=== PATIENT | female | born 1995 | race Caucasian/White ===

== ENCOUNTER 2018-02-16 22:29 | Emergency (ER) | payer SELFPAY ==
[~2018-02-16] VITALS: Ht 152.4 cm; Wt 83.9 kg
[2018-02-16 22:56] LABS: BILIRUBIN,URINE NEGATIVE (NEGATIVE); CLARITY,URINE BLOODY; COLOR,URINE RED; GLUCOSE, URINE (UA) NEGATIVE (NEGATIVE); KETONES,URINE NEGATIVE (NEGATIVE); LEUKOCYTE ESTERASE ,URINE NEGATIVE (NEGATIVE); NITRITE,URINE NEGATIVE (NEGATIVE); PH,URINE 5 (5-9); PROTEIN,URINE 2+ (NEGATIVE); UROBILINOGEN,URINE NORMAL (NORMAL)
[2018-02-16 23:04] LABS: BACTERIA,URINE FEW /HPF; RBC,URINE TNTC /HPF; WBC,URINE RARE /HPF
--- NOTE | 2018-02-16 23:09 | ED GU-Female ---
General Chief Complaint: -Female Stated Complaint: VAG BLEED Source: patient, other Exam Limitations: no limitations History of Present Illness Date Seen by Provider: Feb 16, 2018 Time Seen by Provider: 22:53 Initial Comments Patient presents to the ER by private conveyance from [facility] where she was seen earlier today because around 6 or 7:00 tonight she started having some cramping and then vaginal bleeding. Yesterday she discovered by urine. She test she was . She is a with last menstrual period of 12/29/17 putting her at 7 weeks and 0 days. Her last menses were unremarkable that she remembers having some bleeding early on with her second child and she had to get a shot. She does not know her blood type. Her last sexual intercourse was Sunday, 3 days ago. She's not having any painful urine or discharge. No fevers chills but she has had nausea all day. She typically smokes a half pack a day but she's not smoke today since she's felt ill and she's not had anything to eat all day either. She says at [facility] she was seen and no blood work was done but she will is given a speculum examination. She was told it was unremarkable. She denies any shortness of breath or chest pain. Allergies and Home Medications Allergies Coded Allergies: Penicillins (Verified Allergy, Severe, 02/16/18) hospitalized as child for allergic reaction. Details unk. Amox causes rash amoxicillin (Verified Adverse Reaction, Mild, 02/16/18) rash Patient Home Medication List Home Medication List Reviewed: Yes Review of Systems Constitutional: No chills, No diaphoresis EENTM: No ear discharge, No ear pain Respiratory: No cough, No short of breath Cardiovascular: No chest pain, No edema Gastrointestinal: abdominal pain (suprapubic); No constipation, No diarrhea; nausea; No vomiting Genitourinary: denies burning, denies dysuria : Yes Past Rdsjlrk-Mrqtln-Kzfgjq Hx Patient Social History Alcohol Use: Denies Use Recreational Drug Use: No Smoking Status: Current Everyday Smoker Type Used: Cigarettes (0.5 ppd) Recent Foreign Travel: No Contact w/Someone Who Travel: No Physical Exam Vital Signs Vital Signs - First Documented 02/16/18 22:38 Temp 99.4 Pulse 102 Resp 20 B/P (MAP) 147/92 (110) Pulse Ox 100 O2 Delivery Room Air Capillary Refill : Height, Weight, BMI Height: '" Weight: lbs. oz. kg; BMI Method: General Appearance: WD/WN, no apparent distress HEENT: PERRL/EOMI, pharynx normal Neck: non-tender, normal inspection Cardiovascular: normal peripheral pulses, regular rate, rhythm Respiratory: no respiratory distress, no accessory muscle use Gastrointestinal: normal bowel sounds, soft, tenderness (suprapubic region. Fundus unpalpable) Back: normal inspection, no CVA tenderness Neurologic/Psychiatric: alert, normal mood/affect, oriented x 3 Progress/Results/Core Measures Suspected Sepsis SIRS Temperature: Pulse: Respiratory Rate: Laboratory Tests 02/16/18 23:05: White Blood Count 8.2 Blood Pressure / Mean: Laboratory Tests 02/16/18 23:05: Creatinine 0.67, Platelet Count 341, Total Bilirubin 0.5 Results/Orders Lab Results Laboratory Tests Test 02/16/18 22:45 02/16/18 23:05 Range/Units Urine Color RED H Urine Clarity BLOODY H Urine pH 5 5-9 Urine Specific [place] 1.015 L 1.016-1.022 Urine Protein 2+ H NEGATIVE Urine Glucose (UA) NEGATIVE NEGATIVE Urine Ketones NEGATIVE NEGATIVE Urine Nitrite NEGATIVE NEGATIVE Urine Bilirubin NEGATIVE NEGATIVE Urine Urobilinogen NORMAL NORMAL MG/DL Urine Leukocyte Esterase NEGATIVE NEGATIVE Urine RBC (Auto) 5+ H NEGATIVE Urine RBC TNTC H /HPF Urine WBC RARE /HPF Urine Squamous Epithelial Cells 2-5 /HPF Urine Crystals NONE /LPF Urine Bacteria FEW H /HPF Urine Casts NONE /LPF Urine Mucus NEGATIVE /LPF Urine Culture Indicated NO White Blood Count 8.2 4.3-11.0 10^3/uL Red Blood Count 5.43 4.35-5.85 10^6/uL Hemoglobin 13.4 11.5-16.0 G/DL Hematocrit 39 35-52 % Mean Corpuscular Volume 72 L 80-99 FL Mean Corpuscular Hemoglobin 25 25-34 PG Mean Corpuscular Hemoglobin Concent 34 32-36 G/DL Red Cell Distribution Width 15.0 H 10.0-14.5 % Platelet Count 341 130-400 10^3/uL Mean Platelet Volume 9.7 7.4-10.4 FL Neutrophils (%) (Auto) 75 42-75 % Lymphocytes (%) (Auto) 17 12-44 % Monocytes (%) (Auto) 6 0-12 % Eosinophils (%) (Auto) 2 0-10 % Basophils (%) (Auto) 0 0-10 % Neutrophils # (Auto) 6.1 1.8-7.8 X 10^3 Lymphocytes # (Auto) 1.4 1.0-4.0 X 10^3 Monocytes # (Auto) 0.5 0.0-1.0 X 10^3 Eosinophils # (Auto) 0.1 0.0-0.3 10^3/uL Basophils # (Auto) 0.0 0.0-0.1 10^3/uL Sodium Level 138 135-145 MMOL/L Potassium Level 3.6 3.6-5.0 MMOL/L Chloride Level 108 H 98-107 MMOL/L Carbon Dioxide Level 19 L 21-32 MMOL/L Anion Gap 11 5-14 MMOL/L Blood Urea Nitrogen 5 L 7-18 MG/DL Creatinine 0.67 0.60-1.30 MG/DL Estimat Glomerular Filtration Rate > 60 BUN/Creatinine Ratio 7 Glucose Level 95 70-105 MG/DL Calcium Level 9.0 8.5-10.1 MG/DL Total Bilirubin 0.5 0.1-1.0 MG/DL Aspartate Amino Transf (AST/SGOT) 13 5-34 U/L Alanine Aminotransferase (ALT/SGPT) 9 0-55 U/L Alkaline Phosphatase 65 40-136 U/L Total Protein 7.1 6.4-8.2 GM/DL Albumin 4.4 3.2-4.5 GM/DL Human Chorionic Gonadotropin, Quant [id number] H <5 MIU/ML My Orders Orders - AMRIT ZHANG Ua Culture If Indicated (02/16/18 22:49) Hcg,Quantitative (02/16/18 22:49) Cbc With Automated Diff (02/16/18 22:49) Comprehensive Metabolic Panel (02/16/18 22:49) Type And Screen (02/16/18 22:49) Iv Heplock-Insert (Order) (02/16/18 22:49) Acetaminophen Tablet (Tylenol Tablet) (02/16/18 23:15) Ondansetron Injection (Zofran Injectio (02/16/18 23:15) Us Ob Transvaginal [id number] (02/16/18 23:09) Medications Given in ED Current Medications Medications Dose Ordered Sig/Eleni Route Start Time Stop Time Status Last Admin Dose Admin Acetaminophen 1,000 mg ONCE ONCE PO 02/16/18 23:15 02/16/18 23:16 DC 02/16/18 23:21 1,000 MG Ondansetron HCl 4 mg ONCE ONCE IVP 02/16/18 23:15 02/16/18 23:16 DC 02/16/18 23:21 4 MG Vital Signs/I&O 02/16/18 22:38 Temp 99.4 Pulse 102 Resp 20 B/P (MAP) 147/92 (110) Pulse Ox 100 O2 Delivery Room Air Capillary Refill : Progress Note : Time: 23:08 Progress Note Plan to get some labs, urinalysis, quantitative hCG, IV give her some Zofran, Tylenol. We'll obtain ultrasound to see if we can rule out an ectopic given her cramping and pain. Diagnostic Imaging Diagonstic Imaging: Ultrasound Plain Films/CT/US/NM/MRI: pelvis Comments No pole seen but there is a sac intrauterine. No ectopic . Reviewed: Reviewed by Me Departure Impression Primary Impression: Threatened miscarriage in early Disposition: 01 HOME, SELF-CARE Condition: Stable Departure-Patient Inst. Decision time for Depature: 00:51 Referrals: NO,LOCAL PHYSICIAN (PCP) Primary Care Physician ABILIO ROMERO MD Patient Instructions: Threatened Miscarriage (DC) Add. Discharge Instructions: Sunday morning to follow up with an OB provider. Tylenol 1000 g every 8 hours for pain and/or ibuprofen 800 mg every 8 hours as well as heating pads. You can use Zofran 1 tablet every 6 hours as needed for nausea. All discharge instructions reviewed with patient and/or family. Voiced understanding. Copy Copies To 1: ABILIO ROMERO MD, TITUS J Feb 16, 2018 23:09
[2018-02-16 23:10] LABS: BASOPHILS % (AUTO) 0 % (0-10); EOSINOPHILS # (AUTO) 0.1 10^3/uL (0.0-0.3); EOSINOPHILS % (AUTO) 2 % (0-10); HEMATOCRIT 39 % (35-52); HEMOGLOBIN 13.4 G/DL (11.5-16.0); LYMPHOCYTES # (AUTO) 1.4 X 10^3 (1.0-4.0); LYMPHOCYTES % (AUTO) 17 % (12-44); MEAN CORPUSCULAR HEMOGLOBIN 25 PG (25-34); MEAN CORPUSCULAR HGB CONC 34 G/DL (32-36); MEAN CORPUSCULAR VOLUME 72 FL (80-99); MEAN PLATELET VOLUME 9.7 FL (7.4-10.4); MONOCYTES # (AUTO) 0.5 X 10^3 (0.0-1.0); MONOCYTES % (AUTO) 6 % (0-12); NEUTROPHILS # (AUTO) 6.1 X 10^3 (1.8-7.8); NEUTROPHILS % (AUTO) 75 % (42-75); PLATELET COUNT 341 10^3/uL (130-400); RED BLOOD COUNT 5.43 10^6/uL (4.35-5.85); WHITE BLOOD COUNT 8.2 10^3/uL (4.3-11.0)
[2018-02-16] MEDS ORDERED: ACETAMINOPHEN 500 MG TAB (TYLENOL) PO ONE (23:15)
[2018-02-16] MEDS ORDERED: ONDANSETRON 4 MG/2 ML (SDV) Z0FRAN IVP ONE (23:15)
[2018-02-16 23:27] LABS: BUN/CREATININE RATIO 7; CARBON DIOXIDE 19 MMOL/L (21-32); CHLORIDE 108 MMOL/L (98-107); CREATININE SERUM 0.67 MG/DL (0.60-1.30); POTASSIUM 3.6 MMOL/L (3.6-5.0); SODIUM 138 MMOL/L (135-145)
[2018-02-16 23:28] LABS: ALANINE AMINOTRANSFERASE 9 U/L (0-55); ALBUMIN 4.4 GM/DL (3.2-4.5); ALKALINE PHOSPHATASE 65 U/L (40-136); BILIRUBIN,TOTAL 0.5 MG/DL (0.1-1.0); GFR ESTIMATED > 60; GLUCOSE 95 MG/DL (70-105); TOTAL PROTEIN 7.1 GM/DL (6.4-8.2)
[2018-02-17 01:03] VITALS: BP 147/92
--- NOTE | 2018-02-17 06:13 | Diagnostic Imaging Report ---
Indication: Pelvic cramping and vaginal bleeding starting at 7 PM. Comparison: None. Discussion: Transvaginal sonographic evaluation of the pelvis was performed. Simple appearing saclike structure noted within the endometrium with no pole or yolk sac identified. Mean sac diameter is 9 mm. This would correlate with a 5 week 4 day gestation. Viability is indeterminate. This could represent an early normal or blighted ovum. Recommend clinical correlation and continued sonographic followup. There is a complex lesion within the right ovary which measures 1.9 x 1.1 x 1.2 cm with no internal color Doppler blood flow identified. This potentially could represent a corpus luteum though is indeterminate. The left ovary was obscured by bowel. Trace free fluid is noted within the pelvis. The uterus is otherwise normal in echotexture and size. Impression: 1. Simple appearing gestational sac noted within the endometrial canal with no pole or yolk sac identified. Viability is indeterminate. See above discussion and recommendations. 2. Complex hypoechoic focus within the right ovary is nonspecific though could represent a corpus luteal cyst. This could also be followed up with short-term ultrasound. 3. Agree with preliminary report. Dictated by: Dictated on workstation # [id number]
== END 2018-02-17 01:03 | disposition home or self-care (01) ==
LOC: EDUNIT# 22:29 → ER 22:33
DX: O20.0 Threatened abortion (principal); O99.331 Smoking (tobacco) complicating pregnancy, first trimester; F17.210 Nicotine dependence, cigarettes, uncomplicated; Z3A.01 Less than 8 weeks gestation of pregnancy; Z88.0 Allergy status to penicillin; Z88.1 Allergy status to other antibiotic agents
CPT/HCPCS: 36415; 76817; 80053; 81000; 84702; 85025; 86850; 86900; 86901; 96374

== ENCOUNTER 2018-02-26 01:14 | Emergency (ER) | payer MEDICAID, OTHER ==
[~2018-02-26] VITALS: Ht 152.4 cm; Wt 83.9 kg
[2018-02-26 02:00] LABS: BASOPHILS % (AUTO) 0 % (0-10); EOSINOPHILS # (AUTO) 0.3 10^3/uL (0.0-0.3); EOSINOPHILS % (AUTO) 3 % (0-10); HEMATOCRIT 35 % (35-52); HEMOGLOBIN 12.1 G/DL (11.5-16.0); LYMPHOCYTES # (AUTO) 1.7 X 10^3 (1.0-4.0); LYMPHOCYTES % (AUTO) 18 % (12-44); MEAN CORPUSCULAR HEMOGLOBIN 25 PG (25-34); MEAN CORPUSCULAR HGB CONC 34 G/DL (32-36); MEAN CORPUSCULAR VOLUME 72 FL (80-99); MEAN PLATELET VOLUME 9.5 FL (7.4-10.4); MONOCYTES # (AUTO) 0.7 X 10^3 (0.0-1.0); MONOCYTES % (AUTO) 7 % (0-12); NEUTROPHILS # (AUTO) 6.8 X 10^3 (1.8-7.8); NEUTROPHILS % (AUTO) 71 % (42-75); PLATELET COUNT 336 10^3/uL (130-400); RED BLOOD COUNT 4.94 10^6/uL (4.35-5.85); RED CELL DISTRIBUTION WIDTH 15.2 % (10.0-14.5); WHITE BLOOD COUNT 9.5 10^3/uL (4.3-11.0)
[2018-02-26 02:21] LABS: BUN/CREATININE RATIO 13; CALCIUM 8.9 MG/DL (8.5-10.1); CARBON DIOXIDE 20 MMOL/L (21-32); CHLORIDE 108 MMOL/L (98-107); CREATININE SERUM 0.62 MG/DL (0.60-1.30); GFR ESTIMATED > 60; GLUCOSE 93 MG/DL (70-105); POTASSIUM 3.8 MMOL/L (3.6-5.0); SODIUM 137 MMOL/L (135-145)
[2018-02-26] MEDS ORDERED: NS IV 1000 ML 1,000 ML IV ONE ×2 (02:54→04:09)
[2018-02-26] MEDS ORDERED: NS IV 1000 ML 1,000 ML ONE (03:04)
[2018-02-26 04:46] VITALS: BP_SYST 109; BP_SYST 110; BP_SYST 115; BP_DIAS 54; BP_DIAS 65; BP_DIAS 66
[2018-02-26] MEDS ORDERED: ACHD5005 PO (05:05)
--- NOTE | 2018-02-26 05:05 | ED GU-Female ---
General Chief Complaint: -Female Stated Complaint: VAGINAL BLEEDING Nursing Triage Note: PATIENT HERE FOR CONCERNS OF MISCARRIAGE. SHE IS CONFIRMED BY DR. VASQUEZ AND WAS JUST STARTED ON PROGESTERONE SHOTS. SHE HAS BEEN SPOTTING SINCE SUNDAY BUT STARTED BLEEDING HEAVILY ABOUT 1-2 HOURS AGO WITH CRAMPING. Nursing Sepsis Screen: No Definite Risk Source: patient History of Present Illness Date Seen by Provider: Feb 26, 2018 Time Seen by Provider: 01:29 Initial Comments PT ARRIVES VIA POV FROM HOME IN [place] PT STATES SHE IS , BUT DOES NOT KNOW HOW FAR ALONG SHE IS. LMP --ENDED 01/02/18, BUT DOES NOT KNOW WHEN IT BEGAN. WAS NORMAL. HAS NOT BEEN ON CONTROL PT IS AB 0 PT BEGAN HAVING INTERMITTENT SPOTTING ( SAMLL AMOUNT OF LIGHT PINK ON TISSUE WITH WIPING AND CRAMPING 2 SATURDAYS AGO ( 02/16/18 ) SAW DR. VASQUEZ FOR FIRST OB VISIT ON Sunday02/19/18 AND WAS STARTED ON PROGESTERONE PT STATES AROUND 2300 TONIGHT, SHE BEGAN TO HAVE "BAD" BRIGHT RED BLEEDING AND BAD CRAMPING. HAS BEEN PASSING CLOTS STATES SHE SOAKED 4 PANTILINERS/SUPERTHIN PADS SINCE 2300. + NAUSEA, NO VOMITING--ONGOING SINCE BECOMING HAS BEEN ABLE TO EAT AND DRINK NO PROBLEMS URINATING OR URINARY SYMPTOMS NO FEVER OR RECENT ILLNESS Allergies and Home Medications Allergies Coded Allergies: Penicillins (Verified Allergy, Severe, 02/16/18) hospitalized as child for allergic reaction. Details unk. Amox causes rash amoxicillin (Verified Adverse Reaction, Mild, 02/16/18) rash Home Medications Hydrocodone Bit/Acetaminophen 1 Tab Tab, 1 EACH PO Q4H Prescribed by: DAVID HANDLEY on 02/26/18 0505 Review of Systems Constitutional: no symptoms reported; No dizziness Respiratory: no symptoms reported Cardiovascular: no symptoms reported Gastrointestinal: see HPI, abdominal pain, nausea; No vomiting Genitourinary: see HPI, other (VAGINAL BLEEDING AND CRAMPING) : Yes LMP: Jan 02, 2018 (ENDED 01/02/18) Musculoskeletal: no symptoms reported Skin: no symptoms reported Psychiatric/Neurological: No Symptoms Reported Endocrine: No Symptoms Reported Hematologic/Lymphatic: No Symptoms Reported Past Nvswheq-Dtdycz-Wqpvla Hx Patient Social History Alcohol Use: Denies Use Recreational Drug Use: No Smoking Status: Current Everyday Smoker (1/2 PPD) Type Used: Cigarettes (1/2 PPD) 2nd Hand Smoke Exposure: Yes Recent Foreign Travel: No Contact w/Someone Who Travel: No Recent Infectious Disease Expo: No Recent Hopitalizations: No Physical Abuse: No Sexual Abuse: No Immunizations Up To Date Tetanus Booster (TDap): Unknown PED Vaccines UTD: Yes Seasonal Allergies Seasonal Allergies: No Past Medical History Surgeries: Yes Adenoidectomy, Appendectomy, Section, Tonsillectomy Respiratory: No Cardiac: No Neurological: No : Yes Female Reproductive Disorders: Denies Genitourinary: No Gastrointestinal: No Musculoskeletal: No Endocrine: No HEENT: No Cancer: No Psychosocial: No Nursing Suicide Risk Score: 0 Integumentary: No Blood Disorders: No Physical Exam Vital Signs Vital Signs - First Documented 02/26/18 01:20 Temp 98.4 Pulse 96 Resp 20 B/P (MAP) 124/66 (85) Pulse Ox 99 Capillary Refill : Less Than 3 Seconds Height, Weight, BMI Height: 5'0" Weight: 185lbs. 0oz. 83.209547sb; BMI Method:Stated General Appearance: WD/WN, no apparent distress HEENT: No pale conjunctivae (R), No pale conjunctivae (L) Cardiovascular: regular rate, rhythm, no edema, no JVD, no murmur Respiratory: normal breath sounds, no respiratory distress, no accessory muscle use Gastrointestinal: normal bowel sounds, soft, no organomegaly, no pulsatile mass , tenderness (MILD LOWER ABDOMINAL / SUPRAPUBIC TENDERNES) Pelvic: normal external exam, tender w/ cervical motion, tender uterus, vaginal bleeding (HEAVY BLEEDING WITH LARGE CLOTS, UNABLE TO VISUALIZE CERVIX ) Back: no CVA tenderness Extremities: normal inspection, no pedal edema, normal capillary refill Neurologic/Psychiatric: ripsaw grader II-XII nml as tested, no motor/sensory deficits, alert, normal mood/affect, oriented x 3 Skin: normal color, warm/dry Progress/Results/Core Measures Suspected Sepsis Recent Fever Within 48 Hours: No Infection Criteria Present: None New/Unexplained Altered Menta: No Sepsis Screen: No Definite Risk SIRS Temperature:98.4 Pulse: 94 Respiratory Rate: 20 Laboratory Tests 02/26/18 01:50: White Blood Count 9.5 02/26/18 05:10: White Blood Count 10.1 Blood Pressure 115 /65 Mean: 82 Laboratory Tests 02/26/18 01:50: Creatinine 0.62, Platelet Count 336 02/26/18 05:10: Platelet Count 265 Results/Orders Lab Results Laboratory Tests Test 02/26/18 01:50 02/26/18 05:10 Range/Units White Blood Count 9.5 10.1 4.3-11.0 10^3/uL Red Blood Count 4.94 3.99 L 4.35-5.85 10^6/uL Hemoglobin 12.1 9.7 L 11.5-16.0 G/DL Hematocrit 35 29 L 35-52 % Mean Corpuscular Volume 72 L 73 L 80-99 FL Mean Corpuscular Hemoglobin 25 24 L 25-34 PG Mean Corpuscular Hemoglobin Concent 34 33 32-36 G/DL Red Cell Distribution Width 15.2 H 14.9 H 10.0-14.5 % Platelet Count 336 265 130-400 10^3/uL Mean Platelet Volume 9.5 8.9 7.4-10.4 FL Neutrophils (%) (Auto) 71 73 42-75 % Lymphocytes (%) (Auto) 18 18 12-44 % Monocytes (%) (Auto) 7 7 0-12 % Eosinophils (%) (Auto) 3 2 0-10 % Basophils (%) (Auto) 0 0 0-10 % Neutrophils # (Auto) 6.8 7.4 1.8-7.8 X 10^3 Lymphocytes # (Auto) 1.7 1.8 1.0-4.0 X 10^3 Monocytes # (Auto) 0.7 0.7 0.0-1.0 X 10^3 Eosinophils # (Auto) 0.3 0.2 0.0-0.3 10^3/uL Basophils # (Auto) 0.0 0.0 0.0-0.1 10^3/uL Sodium Level 137 135-145 MMOL/L Potassium Level 3.8 3.6-5.0 MMOL/L Chloride Level 108 H 98-107 MMOL/L Carbon Dioxide Level 20 L 21-32 MMOL/L Anion Gap 9 5-14 MMOL/L Blood Urea Nitrogen 8 7-18 MG/DL Creatinine 0.62 0.60-1.30 MG/DL Estimat Glomerular Filtration Rate > 60 BUN/Creatinine Ratio 13 Glucose Level 93 70-105 MG/DL Calcium Level 8.9 8.5-10.1 MG/DL Human Chorionic Gonadotropin, Quant 94704 H <5 MIU/ML My Orders Orders - DAVID HANDLEY DO Basic Metabolic Panel (02/26/18 01:33) Cbc With Automated Diff (02/26/18 01:33) Hcg,Quantitative (02/26/18 01:33) Saline Lock/Iv-Start (02/26/18 02:54) Ns Iv 1000 Ml (Sodium Chloride 0.9%) (02/26/18 02:54) Us Ob<14 Wks Sngle W/Transvag (02/26/18 01:33) Ns Iv 1000 Ml (Sodium Chloride 0.9%) (02/26/18 03:04) Orthostatic Vital Signs (Adult (02/26/18 04:09) Saline Lock/Iv-Start (02/26/18 04:09) Ns Iv 1000 Ml (Sodium Chloride 0.9%) (02/26/18 04:09) Cbc With Automated Diff (02/26/18 05:03) Rx-Hydrocodone/Apap 5-325 Mg (Rx-Vicodin (02/26/18 05:15) Hydrocodone/Apap 5/325 Tablet (Lortab 5 (02/26/18 05:15) Medications Given in ED Current Medications Medications Dose Ordered Sig/Eleni Route Start Time Stop Time Status Last Admin Dose Admin Acetaminophen/ Hydrocodone Bitart 1 tab ONCE ONCE PO 02/26/18 05:15 02/26/18 05:16 DC 02/26/18 05:29 1 TAB Sodium Chloride 1,000 ml @ 0 mls/hr Q0M ONCE IV 02/26/18 02:54 02/26/18 03:08 DC 02/26/18 03:10 0 MLS/HR Sodium Chloride 1,000 ml @ 0 mls/hr Q0M ONCE IV 02/26/18 04:09 02/26/18 04:10 DC 02/26/18 04:14 0 MLS/HR Vital Signs/I&O 02/26/18 02/26/18 01:20 04:46 Temp 98.4 Pulse 96 81 85 94 Resp 20 B/P (MAP) 124/66 (85) 110/54 (72) 109/66 (80) 115/65 (82) Pulse Ox 99 Capillary Refill : Less Than 3 Seconds Blood Pressure Mean: 82 Progress Note : Progress Note BLEEDING AND CRAMPING HAVE SLOWED DOWN SIGNIFICANTLY AND PT FEELS MUCH BETTER AT DISMISSAL PT DID PASS WHAT APPEARED TO BE PRODUCTS OF CONCEPTION PRIOR TO GOING TO ULTRASOUND. PT OBSERVED IN ER FOR A FEW HOURS, AND GIVEN 2 LITERS OF FLUIDS PT ASYMPTOMATIC WITH ORTHOSTATIC VITALS, AND ONLY SLIGHT INCREASE IN HEART RATE , WITH NO DROP IN BLOOD PRESSURE PT FEELS COMFORTABLE GOING HOME ADVISED TO RETURN TO ER IF SYMPTOMS WORSEN, OTHERWISE FOLLOW UP WITH DR. VASQUEZ IN 1-2 DAYS FOR FURTHER CARE Diagnostic Imaging Comments ULTRASOUND--NO GESTATIONAL SAC. ENDOMETRIUM THICKENED TO 2.2 CM WITH COLOR FLOW IN HETEROGENEOUS ENDOMETRIUM. 2.3 X 1.1 X 1.6 CM RIGHT ADNEXAL COMPLEX CYST. LEFT OVARY NOT VISUALIZED. PER [facility] VIA FAX @ [phone] Reviewed: Reviewed by Me Departure Impression Primary Impression: Miscarriage Additional Impression: MILD BLOOD LOSS ANEMIA Disposition: HOME, SELF-CARE Condition: Improved Departure-Patient Inst. Referrals: GABY VASQUEZ,LOCAL PHYSICIAN (PCP) Primary Care Physician Patient Instructions: Dealing With Miscarriage, Miscarriage (DC) Add. Discharge Instructions: LOTS OF CLEAR LIQUIDS KEEP AN ACCURATE PAD COUNT--RETURN TO ER IF SOAKING MORE THAN 1 MAXI PAD AN HOUR TAKE VITAMINS DAILY FOLLOW UP WITH DR. VASQUEZ IN 1-2 DAYS FOR FURTHER CARE All discharge instructions reviewed with patient and/or family. Voiced understanding. Scripts Hydrocodone Bit/Acetaminophen (Hydrocodone/Acetaminophen 5/325mg Tablet) 1 Tab Tab 1 EACH PO Q4H, #20 TAB Prov: DAVID HANDLEY DO 02/26/18 Work/School Note: Work Release Form Date Seen in the Emergency Department: Feb 26, 2018 Restrictions: Need Release from Doctor DAVID HANDLEY DO Feb 26, 2018 05:05
[2018-02-26] MEDS ORDERED: HYDROcodone/APAP 5 MG/325 MG (LORTAB) TAB PO ONE (05:15)
[2018-02-26] MEDS ORDERED: RX-HYDROCODONE/APAP 5/325 MG #4 TAB PK PO PRN (05:15)
[2018-02-26 05:22] LABS: BASOPHILS % (AUTO) 0 % (0-10); EOSINOPHILS # (AUTO) 0.2 10^3/uL (0.0-0.3); EOSINOPHILS % (AUTO) 2 % (0-10); HEMATOCRIT 29 % (35-52); HEMOGLOBIN 9.7 G/DL (11.5-16.0); LYMPHOCYTES # (AUTO) 1.8 X 10^3 (1.0-4.0); LYMPHOCYTES % (AUTO) 18 % (12-44); MEAN CORPUSCULAR HEMOGLOBIN 24 PG (25-34); MEAN CORPUSCULAR HGB CONC 33 G/DL (32-36); MEAN CORPUSCULAR VOLUME 73 FL (80-99); MEAN PLATELET VOLUME 8.9 FL (7.4-10.4); MONOCYTES # (AUTO) 0.7 X 10^3 (0.0-1.0); MONOCYTES % (AUTO) 7 % (0-12); NEUTROPHILS # (AUTO) 7.4 X 10^3 (1.8-7.8); NEUTROPHILS % (AUTO) 73 % (42-75); PLATELET COUNT 265 10^3/uL (130-400); RED BLOOD COUNT 3.99 10^6/uL (4.35-5.85); RED CELL DISTRIBUTION WIDTH 14.9 % (10.0-14.5); WHITE BLOOD COUNT 10.1 10^3/uL (4.3-11.0)
[2018-02-26 05:42] VITALS: BP 115/65
--- NOTE | 2018-02-26 08:34 | Diagnostic Imaging Report ---
Indication: Pelvic pain and bleeding. Comparison: Pelvic ultrasound 02/16/2018. Technique: Multi-projectional grayscale and color Doppler imaging of the pelvis was performed endovaginally and transabdominally. Findings: The uterus measures 8.0 x 5.3 x 5.7 cm. There is no myometrial mass. However, the endometrium demonstrates marked abnormal echogenic thickening measuring up to 2.2 cm. Near the level of the fundus, there is an abnormal mixed cystic and solid structure within the endometrium. There is also internal vascularity associated with the endometrium. The right ovary measures 2.9 x 1.7 x 1.7 cm. It is physiologic in appearance with normal blood flow present on color Doppler imaging. There is a probable involuting corpus luteum within the right ovary. The left ovary is not seen due to obscuration by bowel gas. Trace free pelvic fluid appears simple. No concerning adnexal mass. Impression: 1. Markedly thickened endometrium and there is no longer an intrauterine gestational sac. Vascularity associated with the endometrium is most compatible with retained products of conception failed . Continued followup beta-hCG and serial ultrasound is recommended as trophoblastic disease could potentially give this appearance. 2. No imaging features of ectopic . 3. Findings are in general agreement with the preliminary report is that there is abnormal endometrial thickening. However, preliminary report does not suggest etiology being related to failed . Obstetric/gynecology consultation is recommended for continued management. Dictated by: Dictated on workstation # [id number]
== END 2018-02-26 05:50 | disposition home or self-care (01) ==
LOC: EDUNIT# 01:14 → ER 01:15
DX: O03.9 Complete or unspecified spontaneous abortion without complication (principal); O99.019 Anemia complicating pregnancy, unspecified trimester; D50.0 Iron deficiency anemia secondary to blood loss (chronic); O99.330 Smoking (tobacco) complicating pregnancy, unspecified trimester; F17.210 Nicotine dependence, cigarettes, uncomplicated; Z87.59 Personal history of other complications of pregnancy, childbirth and the puerperium; Z90.89 Acquired absence of other organs; Z88.0 Allergy status to penicillin; Z3A.00 Weeks of gestation of pregnancy not specified
CPT/HCPCS: 36415; 76801; 76817; 80048; 84702; 85025; 96360; 96361

== ENCOUNTER 2019-02-04 21:20 | Emergency (ER) | payer MEDICAID ==
[~2019-02-04] VITALS: Ht 152.4 cm; Wt 86.2 kg
[~2019-02-04 21:20] MED LIST: ACHD5005 PO
[2019-02-04] MEDS ORDERED: CLINDAMYCIN 150 MG (CLEOCIN) CAP PO STA (21:37)
[2019-02-04] MEDS ORDERED: KETOROLAC 60 MG/2 ML VIAL IM STA (21:37)
[2019-02-04] MEDS ORDERED: RX-TRAMADOL 50 MG (ULTRAM) TAB PPK#4 PO STA (21:38)
--- NOTE | 2019-02-04 21:40 | ED EENT ---
History of Present Illness General Chief Complaint: General Problems/Pain Stated Complaint: BUMP UNDER TONGUE Source: patient History of Present Illness Date Seen by Provider: Feb 04, 2019 Time Seen by Provider: 21:22 Initial Comments 23-year-old female presenting with complaints of pain and swelling under the right side of her tongue. This has presented within the last 36 hours. She also has some teeth that are bad on the inside of her mouth. She is unsure if this was infection or what was causing the pain and swelling. She has had pain to the point that she was unable to eat tonight. It hurts when she is talking because it rubs against her teeth. She has not taken anything for the pain. She has not had something like this before. The pain does radiate to her ear at times as well. She denies any fever or chills. Allergies and Home Medications Allergies Coded Allergies: Penicillins (Verified Allergy, Severe, 02/16/18) hospitalized as child for allergic reaction. Details unk. Amox causes rash amoxicillin (Verified Adverse Reaction, Mild, 02/16/18) rash Home Medications Clindamycin HCl 300 Mg Capsule, 300 MG PO TID Prescribed by: ROSE HENDRICKSON on 02/04/192158 Hydrocodone Bit/Acetaminophen 1 Tab Tab, 1 EACH PO Q4H Prescribed by: DAVID HANDLEY on 02/26/18 0505 Ibuprofen 800 Mg Tablet, 800 MG PO Q8H PRN for PAIN Prescribed by: ROSE HENDRICKSON on 02/04/192158 Patient Home Medication List Home Medication List Reviewed: Yes Review of Systems Review of Systems Constitutional: No chills, No fever, No malaise Eyes: No Symptoms Reported Ears: See HPI Nose: no symptoms reported Mouth: see HPI Throat: no symptoms reported Respiratory: no symptoms reported Cardiovascular: no symptoms reported Gastrointestinal: no symptoms reported Musculoskeletal: no symptoms reported Skin: no symptoms reported Neurological: No Symptoms Reported Hematologic/Lymphatic: No Symptoms Reported Immunological/Allergic: no symptoms reported Past Hxzcsql-Dkhasw-Wqodzs Hx Past Med/Social Hx: Reviewed Nursing Past Med/Soc Hx Patient Social History Type Used: Cigarettes 2nd Hand Smoke Exposure: Yes Recent Foreign Travel: No Contact w/Someone Who Travel: No Recent Hopitalizations: No Immunizations Up To Date Tetanus Booster (TDap): Unknown PED Vaccines UTD: Yes Seasonal Allergies Seasonal Allergies: No Past Medical History Surgeries: Yes Adenoidectomy, Appendectomy, Section, Tonsillectomy Respiratory: No Cardiac: No Neurological: No Female Reproductive Disorders: Denies Genitourinary: No Gastrointestinal: No Musculoskeletal: No Endocrine: No HEENT: No Cancer: No Psychosocial: No Integumentary: No Blood Disorders: No Physical Exam Vital Signs Vital Signs - First Documented 02/04/19 21:30 Temp 98.7 Pulse 115 Resp 20 B/P (MAP) 130/79 (96) Pulse Ox 100 O2 Delivery Room Air Height, Weight, BMI Height: 5'0" Weight: 185lbs. 0oz. 83.166594ia; BMI Method:Stated General Appearance: WD/WN, no apparent distress Eyes: bilateral eye PERRL, bilateral eye EOMI Ears: bilateral ear auricle normal, bilateral ear canal normal, bilateral ear T M normal Nose: normal inspection Mouth/Throat: pharynx normal, dental tenderness; No tonsillar exudate, No trismus; other (white raised papular area under right side of tongue in posterior area. Tender to palpation with mild induration. No drainage noted) Neck: full range of motion, supple, lymphadenopathy (R) (mild shotty) Cardiovascular: normal peripheral pulses, regular rate, rhythm Respiratory: lungs clear Neurologic/Psychiatric: alert, oriented x 3 Skin: normal color, warm/dry Progress/Results/Core Measures Results/Orders My Orders Orders - ROSE HENDRICKSON MD Ketorolac Injection (Toradol Injection) (02/04/19 21:37) Clindamycin Capsule (Cleocin Capsule) (02/04/19 21:37) Rx-Tramadol Hcl (Rx-Ultram) (02/04/19 21:38) Vital Signs/I&O 02/04/19 02/04/19 21:30 21:56 Temp 98.7 98.7 Pulse 115 115 Resp 20 20 B/P (MAP) 130/79 (96) 130/79 (96) Pulse Ox 100 100 O2 Delivery Room Air Progress Progress Note : Progress Note give Toradol to help with pain and inflammation. Treat with antibiotics since seems to be infection with it being swollen, tender and painful. Will treat with clindamycin since she is allergic to penicillins. Use tramadol for severe pain. Continue ibuprofen for inflammation and pain. Outpatient follow-up with Dr. Nery davies's office for ENT evaluation tomorrow or . However also try sour candies in case any of this was a blocked salivary gland duct her [place]. If worsens she may also need a CT scan through that area to evaluate it. Departure Impression Primary Impression: Salivary gland adenitis Disposition: 01 HOME, SELF-CARE Condition: Stable Departure-Patient Inst. Decision time for Depature: 21:54 Referrals: GABY GUILLORY MD NO,LOCAL PHYSICIAN (PCP) Primary Care Physician Patient Instructions: Salivary Gland Infection (DC) Add. Discharge Instructions: Take the antibiotics until gone. Follow up with ENT for further evaluation, especially if not improving tomorrow or . Use Ibuprofen for pain and inflammation. May use the Tramadol for severe pain. Follow a liquid diet for the next 24 to 48 hours to keep from chewing and hurting the area. Use sour candies such as Lemon drops to help make your salivary gland drain. All discharge instructions reviewed with patient and/or family. Voiced understanding. Scripts Clindamycin HCl (Clindamycin HCl) 300 Mg Capsule 300 MG PO TID for 7 Days, #21 CAP 0 Refills Prov: ROSE HENDRICKSON MD 02/04/19 Ibuprofen (Ibuprofen) 800 Mg Tablet 800 MG PO Q8H PRN for PAIN for 10 Days, #30 TAB 0 Refills Prov: ROSE HENDRICKSON MD 02/04/19 Work/School Note: Work Release Form Date Seen in the Emergency Department: Feb 04, 2019 Return to Work: Feb 06, 2019 Restrictions: No Restrictions ROSE HENDRICKSON MD Feb 04, 2019 21:40
[2019-02-04 21:56] VITALS: BP 130/79
[2019-02-04] MEDS ORDERED: IBUP-1780 PO (21:59)
[2019-02-04] MEDS ORDERED: CLIN300C11 PO (21:59)
== END 2019-02-04 22:04 | disposition home or self-care (01) ==
LOC: EDUNIT# 21:20 → ER FS 21:21
DX: K11.20 Sialoadenitis, unspecified (principal); Z88.0 Allergy status to penicillin; Z88.1 Allergy status to other antibiotic agents; Z77.22 Contact with and (suspected) exposure to environmental tobacco smoke (acute) (chronic); Z90.49 Acquired absence of other specified parts of digestive tract; Z90.89 Acquired absence of other organs
CPT/HCPCS: 96372; 99284

== ENCOUNTER → 2019-02-19 | Outpatient (CLI) | payer MEDICAID ==
[~2019-02-19] MED LIST changes: +CLIN300C11 PO; +HOLD METFORMIN - RECEIVED CONTRAST 20 ML VIAL IV SCH; +IBUP-1780 PO; +IOHEXOL 350 MG/ML 100 ML (OMNIPAQUE 350) VIAL IV ONE; +NS 100 ML (IVPB) BAG IV ONE
[2019-02-19] MEDS: CATHETER FLUSH 10 ML SYR IV PRN ×2 (09:34→09:37)
--- NOTE | 2019-02-19 10:22 | Diagnostic Imaging Report ---
PROCEDURE: CT neck soft tissue with contrast. TECHNIQUE: Multiple contiguous axial images were obtained through the neck after the administration of contrast. Auto Exposure Controls were utilized during the CT exam to meet ALARA standards for radiation dose reduction. INDICATION: Right submandibular sialadenitis for three weeks. COMPARISON: No prior studies are available for comparison. FINDINGS: Bilateral submandibular glands are fairly symmetric. Right gland is slightly larger than the left, however, no significant salivary duct dilatation is seen. No inflammatory stranding in the adjacent fat is identified. No definite sialolithiasis is identified. Bilateral parotid glands appear to be symmetric. There are small normal-sized lymph nodes in the submandibular and jugulodigastric regions bilaterally. No cervical lymphadenopathy is seen. Intracranial structures are unremarkable. Posterior nasopharynx and oropharynx are unremarkable. Parapharyngeal fat planes are preserved. Epiglottis and larynx are unremarkable. No thyroid mass is detected. No fluid collections are seen. IMPRESSION: Essentially unremarkable CT soft tissue neck study. No definite CT findings of sialolithiasis or sialadenitis are identified. Dictated by: Dictated on workstation # [id number]
== END ==
LOC: RAD FS 09:12
PROVIDERS: ATTEND Otolaryngology Otolaryngology/Facial Plastic Surgery
DX: K11.20 Sialoadenitis, unspecified (principal)
CPT/HCPCS: 70491

== ENCOUNTER 2019-03-18 19:27 | Emergency (ER) | payer SELFPAY ==
[~2019-03-18] VITALS: Ht 152.4 cm; Wt 88.5 kg
[~2019-03-18 19:27] MED LIST changes: -HOLD METFORMIN - RECEIVED CONTRAST 20 ML VIAL IV SCH; -IOHEXOL 350 MG/ML 100 ML (OMNIPAQUE 350) VIAL IV ONE; -NS 100 ML (IVPB) BAG IV ONE
--- NOTE | 2019-03-18 20:45 | NUR ---
PT. IS ON LEVAQUIN AT THIS TIME.
--- NOTE | 2019-03-18 21:33 | ED EENT ---
History of Present Illness General Chief Complaint: Oral/Throat Problems Stated Complaint: LUMP ON RT SIDE OF THROAT Nursing Triage Note: PT. REPORTED SHE HAS A LUMP ON THE RIGHT SIDE OF HER THROAT. SHE HAS BEEN TREATED FOR SALIVARY GLANDS BY DOCTOR NIEVES AND WAS TO SEE A DOCTOR DIANA TODAY BUT DID NOT GO BECAUSE SHE DID NOT HAVE THE MONEY BUT STATED SHE WILL RESCHEDULE TOMORROW. Source: patient History of Present Illness Date Seen by Provider: Mar 18, 2019 Time Seen by Provider: 21:33 Initial Comments 24-year-old female presenting with complaints of right sided neck pain and swelling. She has been seen by Dr. Nieves with ENT for this. She was seen by me in the ER on February 04 for similar complaints. Since then Dr. Nieves had done a CT scan as well as had her on clindamycin and Levaquin for possible infection. She was referred to ENT at [facility] but has not had the money for gas and transportation to get up to the appointments. She reports that she has had some improvement in her symptoms but it has not completely cleared. Today she was having a feeling like something was stuck in her throat and blocking her swallowing so she came to the ER. She did picking tech a prescription for Levaquin but has not started it today. Allergies and Home Medications Allergies Coded Allergies: Penicillins (Verified Allergy, Severe, 02/16/18) hospitalized as child for allergic reaction. Details unk. Amox causes rash amoxicillin (Verified Adverse Reaction, Mild, 02/16/18) rash Home Medications Clindamycin HCl 300 Mg Capsule, 300 MG PO TID Prescribed by: ROSE HENDRICKSON on 02/04/192158 Hydrocodone Bit/Acetaminophen 1 Tab Tab, 1 EACH PO Q4H Prescribed by: DAVID HANDLEY on 02/26/18 0505 Ibuprofen 800 Mg Tablet, 800 MG PO Q8H PRN for PAIN Prescribed by: ROSE HENDRICKSON on 02/04/192158 Patient Home Medication List Home Medication List Reviewed: Yes Review of Systems Review of Systems Constitutional: chills, fever (subjective) Eyes: No Symptoms Reported Ears: No Symptoms Reported Nose: no symptoms reported Mouth: swelling (swelling and pain underneath her tongue especially on the right side.); denies purulent discharge, denies serosanguinous discharge, denies previous injury Throat: see HPI Respiratory: no symptoms reported Cardiovascular: no symptoms reported Gastrointestinal: no symptoms reported Musculoskeletal: no symptoms reported Skin: no symptoms reported Neurological: No Symptoms Reported Hematologic/Lymphatic: No Symptoms Reported Past Ugirptr-Elytyq-Hdrnfk Hx Past Med/Social Hx: Reviewed Nursing Past Med/Soc Hx Patient Social History Type Used: Cigarettes 2nd Hand Smoke Exposure: Yes Recent Foreign Travel: No Contact w/Someone Who Travel: No Recent Infectious Disease Expo: No Recent Hopitalizations: No Physical Abuse: No Sexual Abuse: No Mistreated: No Fear: No Immunizations Up To Date Tetanus Booster (TDap): Unknown PED Vaccines UTD: Yes Seasonal Allergies Seasonal Allergies: No Past Medical History Surgeries: Yes Adenoidectomy, Appendectomy, Section, Tonsillectomy Respiratory: No Cardiac: No Neurological: No Female Reproductive Disorders: Denies Genitourinary: No Gastrointestinal: No Musculoskeletal: No Endocrine: No HEENT: No Cancer: No Psychosocial: No Integumentary: No Blood Disorders: No Physical Exam Vital Signs Vital Signs - First Documented 03/18/19 03/19/19 20:34 00:14 Temp 99.2 Pulse 114 Resp 20 B/P (MAP) 146/88 (107) Pulse Ox 100 O2 Delivery Room Air Height, Weight, BMI Height: 5'0" Weight: 195lbs. 0oz. 88.734057hx; BMI Method:Stated General Appearance: WD/WN, no apparent distress Eyes: bilateral eye PERRL, bilateral eye EOMI Nose: normal inspection Mouth/Throat: pharynx normal; No dental tenderness, No excessive drooling, No foreign body; mandibular swelling (mild on the right submandibular area); No pharynx swelling, No pharynx tenderness, No tongue swollen, No tonsillar exudate, No trismus, No voice changes Neck: full range of motion, supple, lymphadenopathy (R) (right anterior lymph node swelling in the anterior cervical chain) Cardiovascular: normal peripheral pulses, no edema, no gallop, no JVD, no murmur, tachycardia Respiratory: chest non-tender, lungs clear, normal breath sounds, no respiratory distress, no accessory muscle use Gastrointestinal: normal bowel sounds, non tender, soft, no pulsatile mass Neurologic/Psychiatric: greige goods examiner II-XII nml as tested, no motor/sensory deficits, alert, normal mood/affect, oriented x 3 Skin: normal color, warm/dry Progress/Results/Core Measures Results/Orders Lab Results Laboratory Tests Test 03/18/19 22:35 Range/Units White Blood Count 10.4 4.3-11.0 10^3/uL Red Blood Count 5.83 4.35-5.85 10^6/uL Hemoglobin 14.1 11.5-16.0 G/DL Hematocrit 43 35-52 % Mean Corpuscular Volume 74 L 80-99 FL Mean Corpuscular Hemoglobin 24 L 25-34 PG Mean Corpuscular Hemoglobin Concent 33 32-36 G/DL Red Cell Distribution Width 14.7 H 10.0-14.5 % Platelet Count 337 130-400 10^3/uL Mean Platelet Volume 10.0 7.4-10.4 FL Neutrophils (%) (Auto) 69 42-75 % Lymphocytes (%) (Auto) 22 12-44 % Monocytes (%) (Auto) 6 0-12 % Eosinophils (%) (Auto) 2 0-10 % Basophils (%) (Auto) 0 0-10 % Neutrophils # (Auto) 7.2 1.8-7.8 X 10^3 Lymphocytes # (Auto) 2.3 1.0-4.0 X 10^3 Monocytes # (Auto) 0.7 0.0-1.0 X 10^3 Eosinophils # (Auto) 0.2 0.0-0.3 10^3/uL Basophils # (Auto) 0.0 0.0-0.1 10^3/uL Sodium Level 142 135-145 MMOL/L Potassium Level 3.7 3.6-5.0 MMOL/L Chloride Level 102 98-107 MMOL/L Carbon Dioxide Level 23 21-32 MMOL/L Anion Gap 17 H 5-14 MMOL/L Blood Urea Nitrogen 11 7-18 MG/DL Creatinine 0.76 0.60-1.30 MG/DL Estimat Glomerular Filtration Rate > 60 BUN/Creatinine Ratio 14 Glucose Level 97 70-105 MG/DL Lactic Acid Level 0.97 0.50-2.00 MMOL/L Calcium Level 9.1 8.5-10.1 MG/DL Corrected Calcium 8.5-10.1 MG/DL Total Bilirubin 0.3 0.1-1.0 MG/DL Aspartate Amino Transf (AST/SGOT) 13 5-34 U/L Alanine Aminotransferase (ALT/SGPT) 11 0-55 U/L Alkaline Phosphatase 72 40-136 U/L Total Protein 7.5 6.4-8.2 GM/DL Albumin 4.6 H 3.2-4.5 GM/DL My Orders Orders - ROSE HENDRICKSON MD Iv/Invasive Line Insertion .IV start (03/18/19 22:21) Cbc With Automated Diff (03/18/19 22:21) Comprehensive Metabolic Panel (03/18/19 22:21) Blood Culture (03/18/19 22:21) Lactic Acid Analyzer (03/18/19 22:21) Ct Neck (Soft Tissue) W (03/18/19 22:23) Ketorolac Injection (Toradol Injection) (03/18/19 22:25) Levofloxacin 500 Mg/100 Ml Iv (Levaquin (03/18/19 22:25) Ns Iv 1000 Ml (Sodium Chloride 0.9%) (03/18/19 22:25) Iohexol Injection (Omnipaque 350 Mg/Ml 1 (03/18/19 22:30) Received Contrast (Hold Metformin- Contr (03/18/19 22:30) Ns (Ivpb) (Sodium Chloride 0.9% Ivpb Bag (03/18/19 22:30) Urine Bedside (03/18/19 22:40) Blood Culture (03/18/19 22:44) Medications Given in ED Current Medications Medications Dose Ordered Sig/Eleni Route Start Time Stop Time Status Last Admin Dose Admin Iohexol 75 ml ONCE ONCE IV 03/18/19 22:30 03/18/19 22:31 DC 03/18/19 22:50 75 ML Sodium Chloride 100 ml ONCE ONCE IV 03/18/19 22:30 03/18/19 22:31 DC 03/18/19 22:50 100 ML Vital Signs/I&O 03/18/19 03/19/19 20:34 00:14 Temp 99.2 98.6 Pulse 114 92 Resp 20 18 B/P (MAP) 146/88 (107) 120/90 (100) Pulse Ox 100 O2 Delivery Room Air Room Air 03/19/19 00:00 Intake Total 1100 ml Balance 1100 ml Blood Pressure Mean: 107 Progress Progress Note #1: Progress Note Obtain labs, lactic acid, blood culture since her temperature was just over 99 and her heart rate was tachycardic. Will give the first dose of IV antibiotics as well as a liter fluid. Obtain CT scan of the soft tissue neck to compare to the February 19 scan to see if there has been any change. Progress Note #2: Progress Note labs are stable without acute elevation of WBC or lactic acid. She has stable chemistry panel. Her vital signs improved with treatment. She reports she always has some tachycardia. CT report came back showing No specific abnormality on enhanced soft tissue neck CT scan per Dr. Sami Klein MD at 2310 with fax at 2332. Reviewed results with pt and family. Have her continue with antibiotic since she has elevated Temp above 99F and check with Dr. Nieves about ENT and why he was referring her to ENT at . Diagnostic Imaging Diagonstic Imaging: CT Plain Films/CT/US/NM/MRI: other (soft tissue neck) Comments CT report came back showing No specific abnormality on enhanced soft tissue neck CT scan per Dr. Sami Klein MD at 2310 with fax at 2332. Reviewed: Reviewed Night [facility] Study Departure Impression Primary Impression: Submandibular swelling Additional Impression: Neck pain on right side Disposition: HOME, SELF-CARE Condition: Stable Departure-Patient Inst. Decision time for Depature: 00:22 Referrals: NO,LOCAL PHYSICIAN (PCP/Family) Primary Care Physician Patient Instructions: Salivary Gland Infection (DC), Generalized Neck Pain (DC) Add. Discharge Instructions: Take the antibiotics that Dr. Nieves prescribed. Check with Dr. Nieves during the day, at least by phone about what he was thinking was causing your symptoms and more specifically why he wanted you to see the doctors at since you are having difficulty with making it up to see the provider there. All discharge instructions reviewed with patient and/or family. Voiced understanding. ROSE HENDRICKSON MD Mar 18, 2019 21:33
[2019-03-18] MEDS ORDERED: NS IV 1000 ML 1,000 ML IV STA (22:25)
[2019-03-18] MEDS ORDERED: LEVOFLOXACIN 500 MG/100 ML IV 100 ML IV STA (22:25)
[2019-03-18] MEDS ORDERED: KETOROLAC 30 MG/ML VIAL IVP STA (22:25)
[2019-03-18] MEDS ORDERED: IOHEXOL 350 MG/ML 100 ML (OMNIPAQUE 350) VIAL IV ONE (22:30)
[2019-03-18] MEDS ORDERED: NS 100 ML (IVPB) BAG IV ONE (22:30)
[2019-03-18] MEDS ORDERED: HOLD METFORMIN - RECEIVED CONTRAST 20 ML VIAL IV SCH (22:30)
[2019-03-18 22:45] LABS: HEMATOCRIT 43 % (35-52); HEMOGLOBIN 14.1 G/DL (11.5-16.0); MEAN CORPUSCULAR HEMOGLOBIN 24 PG (25-34); MEAN CORPUSCULAR HGB CONC 33 G/DL (32-36); MEAN CORPUSCULAR VOLUME 74 FL (80-99); PLATELET COUNT 337 10^3/uL (130-400); RED CELL DISTRIBUTION WIDTH 14.7 % (10.0-14.5); WHITE BLOOD COUNT 10.4 10^3/uL (4.3-11.0)
[2019-03-18 22:46] LABS: BASOPHILS % (AUTO) 0 % (0-10); EOSINOPHILS # (AUTO) 0.2 10^3/uL (0.0-0.3); EOSINOPHILS % (AUTO) 2 % (0-10); LYMPHOCYTES # (AUTO) 2.3 X 10^3 (1.0-4.0); LYMPHOCYTES % (AUTO) 22 % (12-44); MONOCYTES # (AUTO) 0.7 X 10^3 (0.0-1.0); MONOCYTES % (AUTO) 6 % (0-12); NEUTROPHILS # (AUTO) 7.2 X 10^3 (1.8-7.8); NEUTROPHILS % (AUTO) 69 % (42-75)
[2019-03-18 23:04] LABS: CARBON DIOXIDE 23 MMOL/L (21-32); CHLORIDE 102 MMOL/L (98-107); POTASSIUM 3.7 MMOL/L (3.6-5.0); SODIUM 142 MMOL/L (135-145)
[2019-03-18 23:05] LABS: ALANINE AMINOTRANSFERASE 11 U/L (0-55); ALBUMIN 4.6 GM/DL (3.2-4.5); ALKALINE PHOSPHATASE 72 U/L (40-136); BILIRUBIN,TOTAL 0.3 MG/DL (0.1-1.0); BUN/CREATININE RATIO 14; CALCIUM 9.1 MG/DL (8.5-10.1); CREATININE SERUM 0.76 MG/DL (0.60-1.30); GFR ESTIMATED > 60; GLUCOSE 97 MG/DL (70-105); TOTAL PROTEIN 7.5 GM/DL (6.4-8.2)
[2019-03-19 00:14] VITALS: BP 120/90
--- NOTE | 2019-03-19 06:19 | Diagnostic Imaging Report ---
PROCEDURE: CT neck soft tissue with contrast. TECHNIQUE: Multiple contiguous axial images were obtained through the neck after the administration of contrast. Auto Exposure Controls were utilized during the CT exam to meet ALARA standards for radiation dose reduction. INDICATION: Right-sided neck swelling The previous CT neck exam of 02/19/2019 failed to show any sign of mass or of an acute abnormality. When compared to previous study, there does not appear to have been any significant change. The parotid and submandibular glands are unremarkable as is the thyroid gland. There is no mass or adenopathy. The tracheal air shadow is not compressed or deviated. The bone windows show no evidence for a fracture or for a destructive lesion. The lung apices are generally clear. IMPRESSION: 1. There is no evidence for an acute abnormality. There is no mass or adenopathy identified either. When compared to previous study, there has been no significant change. Dictated by: Dictated on workstation # [id number]
== END 2019-03-19 00:27 | disposition home or self-care (01) ==
LOC: EDUNIT# 19:27 → ER FS 19:28
DX: R22.1 Localized swelling, mass and lump, neck (principal); M54.2 Cervicalgia; Z88.0 Allergy status to penicillin; Z88.1 Allergy status to other antibiotic agents; Z77.22 Contact with and (suspected) exposure to environmental tobacco smoke (acute) (chronic); Z90.49 Acquired absence of other specified parts of digestive tract; Z90.89 Acquired absence of other organs
CPT/HCPCS: 36415; 70491; 80053; 83605; 84703; 85025; 87040

== ENCOUNTER → 2019-09-10 | Outpatient (CLI) | payer MEDICAID ==
--- NOTE | 2019-09-10 14:49 | Diagnostic Imaging Report ---
INDICATION: anatomical survey. TECHNIQUE: Multiple real-time grayscale images were obtained over the gravid uterus. COMPARISON: None. FINDINGS: Subramanian gestation is in the cephalic position. No pathological finding at the anatomical survey; however, the cardiac structures are suboptimally visualized on a positional basis. The placenta is posterior with no abruption or previa. The amniotic fluid volume is normal. heart rate is 160 beats per minute. Measurements correlate with an age 22 weeks 0 days, sonographic date of confinement 01/14/2020. Biometrical measurements are as follows: Biparietal 5.14 cm, age 21 weeks 5 days. Head circumference 19.45 cm, age 21 weeks 5 days. Abdominal circumference 16.63 cm, age 21 weeks 5 days. Femur length 3.98 cm, age 22 weeks 6 days. Sonographic estimate age: 22 weeks 0 days. Sonographic estimated date of delivery: 01/14/20. Estimated Weight: 477 gm (+/- 70 gm). LMP percentile: 66%. heart rate: 160 beats per minute. number: 1 of 1. IMPRESSION: Cephalic position Subramanian viable IUP measures 22 weeks 0 days. No pathological finding, although cardiac evaluation limited on a positional basis. Dictated by: Dictated on workstation # [id number]
== END ==
LOC: RAD 09:54
PROVIDERS: ATTEND Obstetrics & Gynecology
DX: Z36.9 Encounter for antenatal screening, unspecified (principal); Z3A.22 22 weeks gestation of pregnancy
CPT/HCPCS: 76805

== ENCOUNTER 2020-01-05 05:49 | Outpatient (RCR) | payer MEDICAID ==
[~2020-01-05] VITALS: Ht 152 cm; Wt 102.0 kg
== END 2020-01-05 15:15 | disposition home or self-care (01) ==
LOC: PREOP 05:49
PROVIDERS: ATTEND Obstetrics & Gynecology
DX: Z01.818 Encounter for other preprocedural examination (principal); Z11.59 Encounter for screening for other viral diseases
CPT/HCPCS: 87635

== ENCOUNTER 2020-01-09 07:30 | Inpatient (IN) | payer MEDICAID ==
[~2020-01-09] VITALS: Ht 152 cm; Wt 101.3 kg
[2020-01-09] VITALS (9 sets, daily range): BP systolic 95–127; BP diastolic 49–83
--- NOTE | 2020-01-09 10:05 | NUR ---
ROSHAN KC presented to unit via ambulatory, accompanied by , for SCHEDULED REPEAT C/S. ROSHAN KC weighed, gowned, voided, and to bed. EFHM and TOCO applied, VS taken. ROSHAN KC oriented to bed controls, call light, TV, heat, and A/C controls.
--- NOTE | 2020-01-09 10:10 | NUR ---
This RN discusses name with pt. Pt recently . name is Kev, maiden name is Manuel. Manuel is on pt's ID/DL. Angulo is on insurance. Registration called by this RN for clarification.
[2020-01-09] MEDS ORDERED: METOCLOPRAMIDE INJ 10 MG/2 ML (REGLAN) IV ONE (10:15)
[2020-01-09] MEDS ORDERED: ceFAZolin 2 GM IV Premixed 50 ML IV ONE (10:15)
[2020-01-09] MEDS ORDERED: FAMOTIDINE 20MG/2ML IV (PEPCID) IV ONE (10:15)
[2020-01-09] MEDS ORDERED: CITRIC ACID/SOB CIT (BICITRA) 30 ML UDC PO ONE (10:15)
[2020-01-09] MEDS: LACTATED RINGERS 1,000 ML IV SCH ×4 (11:00→12:22)
--- OUTSIDE RECORDS SUMMARY | 2020-01-09 11:03 | XMS REPORT ---
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 Name Role Phone DENISE WEEKS Unavailable PROBLEMS Unknown Problems ALLERGIES No Information ENCOUNTERS Encounter Location Date Diagnosis [facility] [id number] [address] May, Acute nasopharyngitis J[address] [facility] [address] [facility] [id number] [place] [address] Jan, IMMUNIZATIONS No Known Immunizations SOCIAL HISTORY Never Assessed REASON FOR VISIT PLAN OF CARE VITAL SIGNS MEDICATIONS No Known Medications RESULTS No Results PROCEDURES No Known procedures INSTRUCTIONS MEDICATIONS ADMINISTERED No Known Medications
[2020-01-09 11:18] LABS: BASOPHILS % (AUTO) 0 % (0-10); EOSINOPHILS # (AUTO) 0.1 10^3/uL (0.0-0.3); EOSINOPHILS % (AUTO) 1 % (0-10); HEMATOCRIT 31 % (35-52); LYMPHOCYTES # (AUTO) 1.9 X 10^3 (1.0-4.0); LYMPHOCYTES % (AUTO) 17 % (12-44); MEAN CORPUSCULAR HEMOGLOBIN 23 PG (25-34); MEAN CORPUSCULAR HGB CONC 32 G/DL (32-36); MEAN CORPUSCULAR VOLUME 71 FL (80-99); MEAN PLATELET VOLUME 9.2 FL (7.4-10.4); MONOCYTES # (AUTO) 0.8 X 10^3 (0.0-1.0); MONOCYTES % (AUTO) 7 % (0-12); NEUTROPHILS # (AUTO) 8.5 X 10^3 (1.8-7.8); NEUTROPHILS % (AUTO) 75 % (42-75); PLATELET COUNT 335 10^3/uL (130-400); WHITE BLOOD COUNT 11.4 10^3/uL (4.3-11.0)
[2020-01-09] MEDS ORDERED: OXYTOCIN PRE-MIX DRIP 500 ML IV SCH (11:55)
--- NOTE | 2020-01-09 11:55 | NUR ---
Pt walked to OR by OR staff at this time.
--- NOTE | 2020-01-09 11:55 | History & Physical-OB ---
OB - Chief Complaint & HPI Date/Time Date of Admission: Date of Admission: Jan 09, 2020 at 10:00 Date seen by a Provider: Jan 09, 2020 Time Seen by a Provider: 11:50 Chief Complaint/History OB-Reason for Admission/Chief: Section Hx : 4 Hx Para: 2 Gestational Age in Weeks: 39 Indication for : desires repeat Admission Nurse Assessment Rev: Yes History of Labs B pos Antibody neg RI RPR NR HBsAg NR HIV NR GC neg GBS neg Allergies and Home Medications Allergies Coded Allergies: Penicillins (Verified Allergy, Severe, 02/16/18) hospitalized as child for allergic reaction. Details unk. Amox causes rash clavulanic acid (Verified Allergy, Mild, HIVES, 01/02/20) amoxicillin (Verified Adverse Reaction, Mild, RASH, 01/02/20) Home Medications No Active Prescriptions or Reported Meds Patient Home Medication List Home Medication List Reviewed: Yes OB - History Hx of Present Care: Yes Ultrasounds: Normal mid trimester US Obstetrical Complications: None Medical Complications: None Delivery History Adverse Rxn to Tranfusion: No Patient Past Medical History n/a Social History/Family History HIV/AIDS: No Recent Infectious Disease Expo: No Sexually Transmitted Disease: No Alcohol Use: Denies Use Recreational Drug Use: No 2nd Hand Smoke Exposure: Yes Immunizations Tetanus Booster (TDap): Unknown OB - Admission Exam Physical Exam HEENT: NCAT Heart: Rhythm Normal Lungs: Clear Abdomen: Gravid Extremities: Normal Reflexes: Normal Membranes: Intact Heart Rate: 130's Accelerations: Accelerations Present Decelerations: No Decelerations Short Term Variability: Present 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 Variability: Average (6-25) Contractions on Admission: >10 Minutes Apart Labs Laboratory Tests Test 01/09/20 11:10 Range/Units White Blood Count 11.4 H 4.3-11.0 10^3/uL Red Blood Count 4.35 4.35-5.85 10^6/uL Hemoglobin 10.0 L 11.5-16.0 G/DL Hematocrit 31 L 35-52 % Mean Corpuscular Volume 71 L 80-99 FL Mean Corpuscular Hemoglobin 23 L 25-34 PG Mean Corpuscular Hemoglobin Concent 32 32-36 G/DL Red Cell Distribution Width 15.0 H 10.0-14.5 % Platelet Count 335 130-400 10^3/uL Mean Platelet Volume 9.2 7.4-10.4 FL Neutrophils (%) (Auto) 75 42-75 % Lymphocytes (%) (Auto) 17 12-44 % Monocytes (%) (Auto) 7 0-12 % Eosinophils (%) (Auto) 1 0-10 % Basophils (%) (Auto) 0 0-10 % Neutrophils # (Auto) 8.5 H 1.8-7.8 X 10^3 Lymphocytes # (Auto) 1.9 1.0-4.0 X 10^3 Monocytes # (Auto) 0.8 0.0-1.0 X 10^3 Eosinophils # (Auto) 0.1 0.0-0.3 10^3/uL Basophils # (Auto) 0.0 0.0-0.1 10^3/uL OB - Assessment/Plan/Diagnosis Assessment Assessment: section Admission Dx 24 yo @ 39 weeks Previous GBS neg Admission Status: Inpatient Order (span 2 midnights) Reason for Inpatient Admission: Repeat Plan Plan: Section GABY VASQUEZ DO Jan 09, 2020 11:55
[2020-01-09] MEDS ORDERED: METOCLOPRAMIDE 10 MG (REGLAN) TAB PO SCH (12:00)
[2020-01-09] MEDS ORDERED: MEASLES,MUMPS,RUBELLA 1 EA INJ SC SCH (12:00)
[2020-01-09] MEDS ORDERED: HYDROcodone/APAP 5 MG/325 MG (LORTAB) TAB PO PRN (12:00)
[2020-01-09] MEDS ORDERED: ONDANSETRON 4 MG/2 ML (SDV) Z0FRAN IVP PRN (12:00)
[2020-01-09] MEDS ORDERED: TETANUS,DIPTH,PERTUSS P/F (BOOSTRIX) 0.5 ML VIAL IM SCH (12:00)
[2020-01-09] MEDS ORDERED: fentaNYL INJECTION 100 MCG/2 ML AMP ONE (12:14)
[2020-01-09] MEDS ORDERED: BUPIVACAINE 0.5% 30 ML (SENSORCAINE) VIAL ONE (12:35)
[2020-01-09] MEDS ORDERED: KETOROLAC 30 MG/ML VIAL ONE (12:35)
[2020-01-09] MEDS ORDERED: ONDANSETRON 4 MG/2 ML (SDV) Z0FRAN ONE (12:35)
[2020-01-09] MEDS ORDERED: DEXAMETHASONE 10 MG/ML (DECADRON) 1 ML VIAL ONE (12:35)
[2020-01-09] MEDS ORDERED: PHENYLEPHRINE 100 MCG/ML 10 ML (ANESTHESIA) SYR ONE (12:35)
[2020-01-09] MEDS ORDERED: OXYTOCIN PRE-MIX DRIP 1,000 ML IV ONE (12:35)
[2020-01-09] MEDS ORDERED: METOCLOPRAMIDE INJ 10 MG/2 ML (REGLAN) IV PRN (13:45)
[2020-01-09] MEDS ORDERED: diphenhydrAMINE 50 MG/ML INJ (BENADRYL) IV PRN (13:45)
[2020-01-09] MEDS ORDERED: NALOXONE 0.4 MG/ML 1 ML (NARCAN) VIAL IV PRN ×2 (13:45)
[2020-01-09] MEDS ORDERED: ONDANSETRON 4 MG/2 ML (SDV) Z0FRAN IV PRN (13:45)
[2020-01-09] MEDS ORDERED: CATHETER FLUSH 10 ML SYR IV SCH (14:00)
--- NOTE | 2020-01-09 14:10 | NUR ---
Pt to room 308 via bed accompanied by PACU and OB staff. SCD's on. Report rec'd from Katie Foote RN at bedside. FFU/2, light to mod sana cotres noted, no clots expressed. Pt denies needs or concerns at this time.
--- NOTE | 2020-01-09 15:55 | NUR ---
Mehta catheter removed at this time, pericare performed, fresh vpad and underwear applied.
--- NOTE | 2020-01-09 17:30 | NUR ---
Pt assisted up to bathroom at this time per Maria Alejandra Schilling RN without incident. +void 100ml clear yellow urine noted. Back to bed without incident.
--- NOTE | 2020-01-09 17:33 | OPERATIVE REPORT ---
DATE OF SERVICE: 01/09/2020 PREOPERATIVE DIAGNOSES: 1. A 24-year-old G4, P2 at 39 weeks gestation. 2. Previous section. POSTOPERATIVE DIAGNOSES: 1. A 24-year-old G4, P2 at 39 weeks gestation. 2. Previous section. PROCEDURE: Repeat low transverse section. SURGEON: Dusty Vasquez DO ANESTHESIA: Spinal. ESTIMATED BLOOD LOSS: 500 mL. URINE OUTPUT: 150 mL clear at the end of procedure. FLUIDS: 1200 mL lactated Ringer's solution. FINDINGS: A live female weighing 7 pounds 7 ounces, Apgars of 8 and 9. Grossly normal appearing uterus, bilateral fallopian tubes and ovaries. SPECIMEN SENT: None. INDICATIONS FOR PROCEDURE: A 24-year-old female is a patient who had sought care in my office. She had a previous sections and we planned for repeat at 39 weeks. Risks of the procedure was discussed with the patient throughout her care. On her operative day, we reviewed the risk. Again, once she was agreeable and consent was obtained, the patient was taken to the operating room. OPERATIVE REPORT IN DETAIL: Once in the operating room, spinal anesthesia was found to be adequate, placed in supine position with leftward tilt, prepped and draped in normal sterile fashion. Timeout was performed and anesthesia was tested. A Pfannenstiel skin incision was then made with a knife and carried down to the underlying fascia using Bovie cautery. Fascial incision extended laterally using Bovie cautery. Superior aspect of fascial incision was then grasped with Blair clamps, tented up and dissected off the underlying rectus muscles. The inferior aspect of the fascial incision was then grasped with Blair clamps, tented up and dissected off the underlying rectus muscles. The rectus muscles were then dissected down the midline using Dasilva scissors, which exposed the peritoneum, which I entered bluntly and extended using blunt traction. Sergio ring retractor was placed in the peritoneal incision, which offers excellent lateral sidewall retraction. I then identified the lower uterine segment, which was found to be thinned out and made a low transverse incision to the vesicouterine peritoneum and bluntly dissected off the lower uterine segment. I proceeded with myotomy until membranes were visualized, which fornix extended the uterine incision laterally and superiorly using bandage scissors. Amniotomy was performed, lightly meconium stained fluid was noted at the time of amniotomy. The was found in vertex presentation. With gentle fundal pressure, the 's head was elevated up to the incision where it delivered through the incision. Anterior and posterior shoulders were delivered. The nares and oropharynx were bulb suctioned. Infant was then brought to the operative field where the cord was doubly clamped and cut and infant was handed off to waiting nurses in attendance. Cord blood was collected, 3-vessel cord with intact placenta was delivered spontaneously thereafter. IV Pitocin was initiated to facilitate uterine contraction. Uterine fundus is firm with bimanual massage. Uterus was then exteriorized and cleared of all endometrial clots and debris. I then proceeded with closing the uterine incision using 0 Vicryl suture in running locked fashion. Second layer of imbricating 0 Monocryl was placed. Excellent hemostasis was noted after doing this. I then placed the uterus back in the pelvis and copiously irrigated the pelvis using normal saline. Once again, there was no active bleeding noted from any of my dissection planes. I placed Interceed antiadhesive over my low transverse incision. I then proceeded with closing the peritoneum after removing the Sergio ring retractor. The peritoneum was reapproximated using 3-0 Vicryl suture in running fashion. The rectus muscle reapproximated using 3-0 Vicryl suture in interrupted fashion. The fascia was reapproximated using 0 Vicryl suture in running fashion. Subcutaneous tissue was reapproximated using 3-0 plain interrupted subcutaneous stitch and skin reapproximated using 4-0 Monocryl running subcuticular. Dermabond was applied to incision and sterile dressing was adhesed with white tape. The patient tolerated the procedure well and was taken to recovery area in stable condition. Lap and sponge counts were correct at the end of the procedure. Instrument counts correct as well. Two grams of Ancef are given preoperatively for infection prophylaxis. Job ID: [id number] DocumentID: [id number] Dictated Date: 01/09/2020 12:59:21 Flat Clothier Date: 01/09/2020 17:32:06 Dictated By: DUSTY VASQUEZ DO
[2020-01-09] MEDS: KETOROLAC 30 MG/ML VIAL IV SCH (18:36)
[2020-01-09] MEDS: DOCUSATE SODIUM 100 MG (COLACE) CAP PO SCH (21:02)
[2020-01-10] VITALS: BP 118/78
[2020-01-10] MEDS: KETOROLAC 30 MG/ML VIAL IV SCH (01:27)
[2020-01-10 04:00] VITALS: BP 119/74
[2020-01-10 05:14] LABS: BASOPHILS % (AUTO) 0 % (0-10); EOSINOPHILS % (AUTO) 0 % (0-10); HEMATOCRIT 25 % (35-52); LYMPHOCYTES # (AUTO) 2.2 X 10^3 (1.0-4.0); LYMPHOCYTES % (AUTO) 11 % (12-44); MEAN CORPUSCULAR HEMOGLOBIN 23 PG (25-34); MEAN CORPUSCULAR HGB CONC 32 G/DL (32-36); MEAN CORPUSCULAR VOLUME 72 FL (80-99); MEAN PLATELET VOLUME 9.4 FL (7.4-10.4); MONOCYTES # (AUTO) 1.7 X 10^3 (0.0-1.0); MONOCYTES % (AUTO) 9 % (0-12); NEUTROPHILS # (AUTO) 15.8 X 10^3 (1.8-7.8); NEUTROPHILS % (AUTO) 80 % (42-75); PLATELET COUNT 326 10^3/uL (130-400); RED CELL DISTRIBUTION WIDTH 14.8 % (10.0-14.5); WHITE BLOOD COUNT 19.7 10^3/uL (4.3-11.0)
--- NOTE | 2020-01-10 07:02 | Postpartum Progress Note ---
SAVAGE CURTIS,MED STUDENT 01/10/20 0702: Note Note Day # 1 Subjective: Patient having mild abdominal pain, improves with rest. Ambulating, voiding. Tolerating a regular diet without nausea or vomiting. Normal lochia. Pain is well controlled with oral pain medications. Physical Exam: General - Alert and oriented, no apparent distress Abdomen - Soft, appropriately tender to palpation, non-distended, fundus firm at umbilicus Extremities - no edema, negative Guillermo's bilaterally Incision: clean, dry and intact Assessment: Post- day # 1, status post RLTCS Acute blood loss anemia Recovering well, hemodynamically stable Plan: Routine care. Encourage breast feeding. Encourage ambulation. Ferrous sulfate supplementation. Plan for discharge tomorrow Vitals - Labs Vital Signs - I&O Vital Signs Date Time Temp Pulse Resp B/P (MAP) Pulse Ox O2 Delivery O2 Flow Rate FiO2 01/10/20 04:00 36.1 70 18 119/74 (89) 98 Room Air 01/10/20 00:00 36.2 74 20 118/78 (91) 98 Room Air 01/09/20 18:41 36.6 87 18 119/77 (91) 98 Room Air 01/09/20 14:15 36.3 75 18 122/77 (92) 98 Room Air 01/09/20 14:07 Room Air 01/09/20 14:05 36.2 19 127/83 (98) 99 Room Air 01/09/20 14:00 Room Air 01/09/20 13:55 11 124/77 (93) 98 Room Air 01/09/20 13:45 20 115/82 (93) 100 Room Air 01/09/20 13:45 Room Air 01/09/20 13:35 17 113/64 (80) 100 Room Air 01/09/20 13:30 Room Air 01/09/20 13:25 12 95/49 (64) 100 Room Air 01/09/20 13:15 36.2 10 112/75 (87) 99 Room Air 01/09/20 13:15 Room Air 01/09/20 10:30 36.3 125 16 97 Room Air I & O 01/10/20 07:00 Intake Total 2150 ml Output Total 1150 ml Balance 1000 ml Labs Laboratory Tests 01/09/20 11:10: White Blood Count 11.4H, Red Blood Count 4.35, Hemoglobin 10.0L, Hematocrit 31L, Mean Corpuscular Volume 71L, Mean Corpuscular Hemoglobin 23L, Mean Corpuscular Hemoglobin Concent 32, Red Cell Distribution Width 15.0H, Platelet Count 335, Mean Platelet Volume 9.2, Neutrophils (%) (Auto) 75, Lymphocytes (%) (Auto) 17, Monocytes (%) (Auto) 7, Eosinophils (%) (Auto) 1, Basophils (%) (Auto) 0, Neutrophils # (Auto) 8.5H, Lymphocytes # (Auto) 1.9, Monocytes # (Auto) 0.8, Eosinophils # (Auto) 0.1, Basophils # (Auto) 0.0 01/10/20 05:04: White Blood Count 19.7H, Red Blood Count 3.49L, Hemoglobin 8.0L, Hematocrit 25L, Mean Corpuscular Volume 72L, Mean Corpuscular Hemoglobin 23L, Mean Corpuscular Hemoglobin Concent 32, Red Cell Distribution Width 14.8H, Platelet Count 326, Mean Platelet Volume 9.4, Neutrophils (%) (Auto) 80H, Lymphocytes (%) (Auto) 11L , Monocytes (%) (Auto) 9, Eosinophils (%) (Auto) 0, Basophils (%) (Auto) 0, Neutrophils # (Auto) 15.8H, Lymphocytes # (Auto) 2.2, Monocytes # (Auto) 1.7H, Eosinophils # (Auto) 0.0, Basophils # (Auto) 0.0 GABY VASQUEZ DO 01/10/20 0734: Note Note Verification and Attestation of Medical Student E/M Service A medical student performed and documented this service in my presence. I reviewed and verified all information documented by the medical student and made modifications to such information, when appropriate. I personally performed the physical exam and medical decision making. Gaby Vasquez, Jan 10, 2020,07:34 SAVAGE CURTIS,MED STUDENT Jan 10, 2020 07:02 GABY VASQUEZ DO Jan 10, 2020 07:34
[2020-01-10] MEDS ORDERED: HYDR-83 PO (07:37)
[2020-01-10] MEDS ORDERED: DCS100C PO (07:37)
[2020-01-10] MEDS ORDERED: IBUP-844 PO (07:37)
--- NOTE | 2020-01-10 07:39 | Discharge Inst-Women's Service ---
Discharge Inst-Women's Serv Depart Medication/Instructions New, Converted or Re-Newed RX: RX on Chart Final Diagnosis POD 2 RLTCS Problems Reviewed?: Yes Consults/Follow Up Additional Follow Up: Yes Orders/Referrals DR. Argueta in 7-10 days and in 6 weeks Activity Activity: Activity as Tolerated Driving Instructions: No Driving for 1 Week NO SMOKING: NO SMOKING Nothing Inside Vagina: No Douching, No [place], No Tampons Diet Discharge Diet: No Restrictions Symptoms to Report to : Bleeding Excessive, Pain Increased, Fever Over 101 Degrees F, Vaginal Bleeding Increase, Questions/Concerns For Any Problems or Questions: Contact Your Physician Skin/Wound Care Infection Signs and Symptoms: Increased Redness, Foul Odor of Wound, Increased Drainage, Skin Itchy or Has a Rash, Increased Swelling, Temperature Above 101 F Operative Area Clean and Dry: Keep Incision Clean/Dry Stitches/Beth/Dermabond: Dermabond, Care of Stitches Bathing Instructions: GABY Dyer DO Jan 10, 2020 07:39
[2020-01-10] MEDS ORDERED: IBUPROFEN 600 MG (MOTRIN) TAB PO ONE (08:38)
[2020-01-10] MEDS: DOCUSATE SODIUM 100 MG (COLACE) CAP PO SCH ×2 (08:55→20:59)
[2020-01-10] MEDS: IBUPROFEN 600 MG (MOTRIN) TAB PO SCH ×3 (08:55→20:59)
[2020-01-10 09:00] VITALS: BP 116/56
--- NOTE | 2020-01-10 12:18 | Anesthesia-Regional Post-Op ---
Regional Patient Condition Mental Status: Alert, Oriented x3 Circulation: Same as Pre-Op Headache: Absent Sensation: Full Recovery Motor Block: Absent Post Op Complications Complications None Follow Up Care/Instructions Patient Instructions None needed. Anesthesia/Patient Condition Patient is doing well, no complaints, stable vital signs, no apparent adverse anesthesia problems. No complications reported per nursing. LUIS ALFREDO PRADHAN CRNA Jan 10, 2020 12:18
[2020-01-10 15:00] VITALS: BP 88/49
[2020-01-10] MEDS: LACTATED RINGERS 1,000 ML IV SCH (18:51)
[2020-01-10 21:15] VITALS: BP 99/55
[2020-01-11 02:37] VITALS: BP 88/53
[2020-01-11] MEDS: IBUPROFEN 600 MG (MOTRIN) TAB PO SCH ×2 (02:43→09:06)
[2020-01-11 09:04] VITALS: BP 113/64
[2020-01-11] MEDS: DOCUSATE SODIUM 100 MG (COLACE) CAP PO SCH (09:06)
--- NOTE | 2020-01-11 09:10 | NUR ---
PT IN BED, HOLDING . S/O SLEEPING @ THE BEDSIDE. VS OBTAINED. MEDS GIVEN PO; SEE EMAR FOR FURTHER. INITIAL SHIFT ASSESSMENT COMPLETED; SEE INTERVENTION FOR FURTHER. PT DENIES ANY NEEDS OR QUESTIONS AT THIS TIME. CALL LIGHT WITHIN REACH.
--- NOTE | 2020-01-11 09:54 | Postpartum Progress Note ---
Note Note Day # 2 Subjective: Patient is without complaints. Ambulating, voiding. Tolerating a regular diet without nausea or vomiting. Normal lochia. Pain is well controlled with oral pain medications. Objective: Physical Exam: General - Alert and oriented, no apparent distress Abdomen - Soft, appropriately tender to palpation, non-distended, fundus firm at umbilicus Extremities - no edema, negative Guillermo's bilaterally Incision- c/d/i Assessment: POD 2 RLTCS Plan: Routine care. Encourage breast feeding. Encourage ambulation. Ferrous sulfate supplementation. Plan for discharge today Vitals - Labs Vital Signs - I&O Vital Signs Date Time Temp Pulse Resp B/P (MAP) Pulse Ox O2 Delivery O2 Flow Rate FiO2 01/11/20 09:04 36.3 82 18 113/64 (80) 99 Room Air 01/11/20 02:37 36.5 77 16 88/53 (65) 96 Room Air 01/10/20 21:15 37.0 88 16 99/55 (70) 88 Room Air 01/10/20 15:00 36.5 80 16 88/49 (62) 97 Room Air I & O 01/11/20 07:00 Intake Total 360 ml Balance 360 ml GABY VASQUEZ DO Jan 11, 2020 09:54
--- NOTE | 2020-01-11 10:07 | NUR ---
DR. VASQUEZ TO PT'S BEDSIDE.
--- NOTE | 2020-01-11 11:15 | NUR ---
DISCHARGE PAPERS PROVIDED AND REVIEWED WITH PT, PT VERBALIZES UNDERSTANDING AND DENIES ANY QUESTIONS AT THIS TIME. PAPER SIGNED. RX AND BREAST PUMP RX ALSO PROVIDED AT THIS TIME AND PLACED INTO DISCHARGE FOLDER.
--- NOTE | 2020-01-11 13:45 | NUR ---
PT DISCHARGED FROM -308 TO PERSONAL AUTO VIA W/C IN STABLE CONDITION ACC BY THIS RN, S/O AND INFANT.
== END 2020-01-11 13:45 | disposition home or self-care (01) | DRG 787 ==
LOC: LDRP 10:00
PROVIDERS: ADMIT Obstetrics & Gynecology; ATTEND Obstetrics & Gynecology
PROC: 10D00Z1 Extraction of Products of Conception, Low, Open Approach (ICD-10-PCS; principal; 2020-01-09 11:55)
DX: O34.211 Maternal care for low transverse scar from previous cesarean delivery (principal); D62 Acute posthemorrhagic anemia; O90.81 Anemia of the puerperium; Z3A.39 39 weeks gestation of pregnancy; Z37.0 Single live birth; O99.334 Smoking (tobacco) complicating childbirth; F17.210 Nicotine dependence, cigarettes, uncomplicated
CPT/HCPCS: 36415; 85025; 86850; 86900; 86901; 94664

== ENCOUNTER 2021-05-01 23:29 | Emergency (ER) | payer MEDICAID ==
[~2021-05-01 23:29] MED LIST changes: -CLIN300C11 PO; +CLIN300C12 PO; +DOCU-239 PO; +IBUP-844 PO
--- NOTE | 2021-05-01 23:34 | ED Abdominal Pain ---
General Stated Complaint: LOWER ABDOMINAL PAIN History of Present Illness Date Seen by Provider: May 01, 2021 Time Seen by Provider: 23:34 Initial Comments Patient started having some dysuria around 4-5 hours ago and then started having some lower abdominal pain. Majority of the pain is in the suprapubic region with a little bit of pain on the left greater than right. She did try some Azo to help with the symptoms. Patient with some mild nausea due to the pain. Patient with no vomiting flank pain fever or chills. Allergies and Home Medications Allergies Coded Allergies: Penicillins (Verified Allergy, Severe, 02/16/18) hospitalized as child for allergic reaction. Details unk. Amox causes rash clavulanic acid (Verified Allergy, Mild, HIVES, 01/02/20) amoxicillin (Verified Adverse Reaction, Mild, RASH, 01/02/20) Patient Home Medication List Home Medication List Reviewed: Yes Docusate Sodium (Dok) 100 Mg Capsule, 100 MG PO BID PRN for CONSTIPATION-1ST LINE Prescribed by: GABY VASQUEZ on 01/10/20 0737 Hydrocodone/Acetaminophen (Hydrocodone-Acetamin 5-325 mg) 1 Each Tablet, 1-2 TAB PO Q6HR PRN for PAIN-MODERATE (5-7) Prescribed by: GABY VASQUEZ on 01/10/20 0737 Ibuprofen (Ibu) 600 Mg Tablet, 600 MG PO Q6HR Prescribed by: GABY VASQUEZ on 01/10/20 0737 Sulfamethoxazole/Trimethoprim (Bactrim Ds Tablet) 1 Each Tablet, 1 EACH PO BID Prescribed by: SAUL GARCIA on 05/02/21 0026 Review of Systems Review of Systems Constitutional: No chills, No fever EENTM: No Symptoms Reported Respiratory: No Symptoms Reported Cardiovascular: No Symptoms Reported Gastrointestinal: Nausea Genitourinary: See HPI Musculoskeletal: no symptoms reported Skin: no symptoms reported Psychiatric/Neurological: No Symptoms Reported Past Njsbkcl-Fzqhaz-Rlmbzk Hx Immunizations Up To Date Tetanus Booster (TDap): Unknown PED Vaccines UTD: Yes Seasonal Allergies Seasonal Allergies: No Past Medical History Surgeries: Yes Adenoidectomy, Appendectomy, Section, Tonsillectomy Respiratory: No Cardiac: No Neurological: No Female Reproductive Disorders: Denies Sexually Transmitted Disease: No HIV/AIDS: No Genitourinary: No Kidney Stones Gastrointestinal: No Gastroesophageal Reflux Musculoskeletal: No Endocrine: No HEENT: No Loss of Vision: Denies Hearing Impairment: Denies Cancer: No Psychosocial: No Integumentary: No Blood Disorders: No Adverse Reaction/Blood Tranf: No Family Medical History Asthma G8 SISTER Diabetes mellitus 19 FATHER Seizure disorder 19 FATHER G8 SISTER Thyroid disease 19 MOTHER G8 SISTER Physical Exam Vital Signs Vital Signs - First Documented 05/01/21 23:33 Temp 36.5 Pulse 114 Resp 18 B/P (MAP) 145/85 (105) Pulse Ox 100 O2 Delivery Room Air Capillary Refill : Height/Weight/BMI Height: 5'0" Weight: 195lbs. 0oz. 88.802192gn; 43.84 BMI Method:Stated General Appearance: WD/WN, no apparent distress Respiratory: lungs clear, normal breath sounds Cardiovascular: tachycardia Gastrointestinal: soft, tenderness (Suprapubic and mild bilateral lower abdomen) Extremities: normal range of motion, non-tender Neurologic/Psychiatric: alert, normal mood/affect, oriented x 3 Skin: normal color, warm/dry Progress/Results/Core Measures Results/Orders Lab Results Laboratory Tests Test 05/01/21 23:38 Range/Units Urine Color ORANGE Urine Clarity CLOUDY Urine pH 6.5 5-9 Urine Specific [place] 1.020 1.016-1.022 Urine Protein 3+ H NEGATIVE Urine Glucose (UA) 1+ H NEGATIVE Urine Ketones TRACE H NEGATIVE Urine Nitrite NEGATIVE NEGATIVE Urine Bilirubin 2+ H NEGATIVE Urine Urobilinogen >=8.0 < = 1.0 MG/DL Urine Leukocyte Esterase 3+ H NEGATIVE Urine RBC (Auto) 3+ H NEGATIVE Urine RBC 25-50 H /HPF Urine WBC TNTC H /HPF Urine Squamous Epithelial Cells 2-5 /HPF Urine Crystals PRESENT H /LPF Urine Amorphous Sediment MOD RADHA PHOSPHATE H /LPF Urine Bacteria NEGATIVE /HPF Urine Casts NONE /LPF Urine Mucus LARGE H /LPF Urine Culture Indicated YES Urine Test NEGATIVE NEGATIVE My Orders Orders - SAUL GARCIA DO Ua Culture If Indicated (05/01/21 23:41) Urine Bedside (05/01/21 23:41) Hcg,Qualitative Urine (05/01/21 23:48) Ketorolac Injection (Toradol Injection) (05/01/21 23:51) Urine Culture (05/01/21 23:38) Ed Iv/Invasive Line Start (05/02/21 00:23) Sulfamethoxazole/Trimet Ds Tab (Bactrim (05/02/21 00:30) Medications Given in ED Current Medications Medications Dose Ordered Sig/Eleni Route Start Time Stop Time Status Last Admin Dose Admin Trimethoprim/ Sulfamethoxazole 1 ea ONCE ONCE PO 05/02/21 00:30 05/02/21 00:31 DC 05/02/21 00:34 1 EA Vital Signs/I&O 05/01/21 05/02/21 23:33 00:35 Temp 36.5 36.5 Pulse 114 114 Resp 18 18 B/P (MAP) 145/85 (105) 145/85 Pulse Ox 100 100 O2 Delivery Room Air Room Air Progress Progress Note : Progress Note Patient with a urinary tract infection. I will also start her on Bactrim. She was given 1 in the ER and then discharged home with a prescription. Patient was stable at discharge Departure Impression Primary Impression: Acute cystitis with hematuria Disposition: HOME, SELF-CARE Condition: Stable Departure-Patient Inst. Referrals: NO,LOCAL PHYSICIAN (PCP/Family) Primary Care Physician Patient Instructions: Urinary Tract Infection, Adult ED Add. Discharge Instructions: Follow-up with your primary care provider in 1 week for recheck of your urine Scripts Sulfamethoxazole/Trimethoprim (Bactrim Ds Tablet) 1 Each Tablet 1 EACH PO BID for 7 Days, #14 TAB Prov: SAUL GARCIA DO 05/02/21 SAUL GARCIA DO May 01, 2021 23:34
[2021-05-01] MEDS ORDERED: KETOROLAC 30 MG/ML VIAL IVP STA (23:51)
[2021-05-01 23:58] LABS: GLUCOSE, URINE (UA) 1+ (NEGATIVE); KETONES,URINE TRACE (NEGATIVE); LEUKOCYTE ESTERASE ,URINE 3+ (NEGATIVE); PH,URINE 6.5 (5-9); PROTEIN,URINE 3+ (NEGATIVE)
[2021-05-02 00:11] LABS: CLARITY,URINE CLOUDY; COLOR,URINE ORANGE
[2021-05-02 00:12] LABS: NITRITE,URINE NEGATIVE (NEGATIVE)
[2021-05-02 00:13] LABS: RBC,URINE 25-50 /HPF; WBC,URINE TNTC /HPF
[2021-05-02 00:14] LABS: AMORPHOUS SEDIMENT,UR MOD AMOR PHOSPHATE /LPF; BACTERIA,URINE NEGATIVE /HPF
[2021-05-02 00:15] LABS: BILIRUBIN,URINE 2+ (NEGATIVE)
[2021-05-02] MEDS ORDERED: SULF1TAB38 PO (00:26)
[2021-05-02] MEDS ORDERED: TRIM/SULFAMETH 160/800 (SEPTRA DS) TAB PO ONE (00:30)
[2021-05-02 00:35] VITALS: BP 145/85
== END 2021-05-02 00:37 | disposition home or self-care (01) ==
LOC: EDUNIT# 23:29 → ER FS 23:32
DX: N30.01 Acute cystitis with hematuria (principal)
CPT/HCPCS: 81000; 84703; 87077; 87088; 87186

== ENCOUNTER 2022-01-05 08:56 | Emergency (ER) | payer MEDICAID ==
[~2022-01-05] VITALS: Ht 152 cm; Wt 91.0 kg
[~2022-01-05 08:56] MED LIST changes: +CLIN-144 PO; -CLIN300C12 PO; +SULF1TAB38 PO
[2022-01-05 09:17] VITALS: BP 137/103
[2022-01-05] MEDS ORDERED: CYCLOBENZAPRINE 10 MG (FLEXERIL) TAB PO STA (09:20)
--- NOTE | 2022-01-05 09:27 | ED Back Pain ---
General Chief Complaint: Back Problems Stated Complaint: BACK PAIN Nursing Triage Note: Patient has ambulated to ER with cc of lower mid back pain for the last 2 to 3 days. She denies any known injury. She has taken tylenol and ibuprofen for her symptoms. Her pain is worse to bend and worse when she turns to the right. Source of Information: Patient Exam Limitations: No Limitations History of Present Illness Date Seen by Provider: Jan 05, 2022 Time Seen by Provider: 08:57 Initial Comments 26-year-old female with no pertinent past medical history coming in due to low back pain. Started a couple days ago, was intermittent, now constant. Feels like a sharp pain that is worse when she twists or moves, particularly to the right. Denies any real flank pain, no dysuria, hematuria, urinary frequency, fever, abdominal pain, chest pain, shortness of breath, weakness, numbness, or any other concerns. She has not had any bowel or bladder issues at all. Ambulating without difficulty. Had no trauma that she knows of, and there is no event where she was lifting something and got pain. She sits at her desk all day at home and works, and sitting for those prolonged periods does cause discomfort. She has been alternating Tylenol and ibuprofen which does help some with the pain. She says the pain is moderate, currently constant, and currently sharp. LMP was roughly 2 weeks ago. Allergies and Home Medications Allergies Coded Allergies: Penicillins (Verified Allergy, Severe, 02/16/18) hospitalized as child for allergic reaction. Details unk. Amox causes rash clavulanic acid (Verified Allergy, Mild, HIVES, 01/02/20) amoxicillin (Verified Adverse Reaction, Mild, RASH, 01/02/20) Patient Home Medication List Home Medication List Reviewed: Yes Cyclobenzaprine HCl (Cyclobenzaprine HCl) 10 Mg Tablet, 10 MG PO Q8H PRN for SPASMS Prescribed by: BRETT CAROLINA on 01/05/22 0928 Docusate Sodium (Dok) 100 Mg Capsule, 100 MG PO BID PRN for CONSTIPATION-1ST LINE Prescribed by: GABY VASQUEZ on 01/10/20 0737 Hydrocodone/Acetaminophen (Hydrocodone-Acetamin 5-325 mg) 1 Each Tablet, 1-2 TAB PO Q6HR PRN for PAIN-MODERATE (5-7) Prescribed by: GABY VASQUEZ on 01/10/20 0737 Ibuprofen (Ibu) 600 Mg Tablet, 600 MG PO Q6HR Prescribed by: GABY VASQUEZ on 01/10/2037 Ketorolac Tromethamine (Ketorolac Tromethamine) 10 Mg Tablet, 10 MG PO Q8H Prescribed by: BRETT CAROLINA on 01/05/2228 Lidocaine (Lidocaine 5% Patch) 5 % Adh..patch, 1 EACH TP Q12H PRN for Neuropathic pain Prescribed by: BRETT CAROLINA on 01/05/22927 Sulfamethoxazole/Trimethoprim (Bactrim Ds Tablet) 1 Each Tablet, 1 EACH PO BID Prescribed by: SAUL GARCIA on 05/02/21 0026 Review of Systems Constitutional: No fever EENTM: No blurred vision Respiratory: No cough Cardiovascular: No chest pain Gastrointestinal: No abdominal pain Genitourinary: no symptoms reported Musculoskeletal: back pain Skin: no symptoms reported Psychiatric/Neurological: No Symptoms Reported All Other Systems Reviewed Negative Unless Noted: Yes Past Kvykmls-Epnyrr-Yrykle Hx Patient Social History Tobacco Use?: Yes Tobacco type used: Cigarettes Use of E-Cig and/or Vaping dev: No Substance use?: No Alcohol Use?: No Immunizations Up To Date Tetanus Booster (TDap): Unknown PED Vaccines UTD: Yes Seasonal Allergies Seasonal Allergies: No Past Medical History Surgeries: Yes Adenoidectomy, Appendectomy, Section, Tonsillectomy Respiratory: No Cardiac: No Neurological: No Female Reproductive Disorders: Denies Sexually Transmitted Disease: No HIV/AIDS: No Genitourinary: No Kidney Stones Gastrointestinal: No Gastroesophageal Reflux Musculoskeletal: No Endocrine: No HEENT: No Loss of Vision: Denies Hearing Impairment: Denies Cancer: No Psychosocial: No Integumentary: No Blood Disorders: No Adverse Reaction/Blood Tranf: No Family Medical History Asthma G8 SISTER Diabetes mellitus 19 FATHER Seizure disorder 19 FATHER G8 SISTER Thyroid disease 19 MOTHER G8 SISTER Physical Exam Vital Signs Vital Signs - First Documented 01/05/22 09:17 Temp 36.5 Pulse 112 Resp 16 B/P (MAP) 137/103 (114) Pulse Ox 100 O2 Delivery Room Air Capillary Refill : Height, Weight, BMI Height: 5'0" Weight: 195lbs. 0oz. 88.374406zi; 39.00 BMI Method:Stated General Appearance: No Apparent Distress, WD/WN HEENT: PERRL/EOMI, Normal ENT Inspection, Pharynx Normal Neck: Full Range of Motion, Normal Inspection, Non Tender, Supple Cardiovascular: Regular Rate, Rhythm, No Edema, Normal Peripheral Pulses Respiratory: Chest Non Tender, Lungs Clear, Normal Breath Sounds, No Accessory Muscle Use, No Respiratory Distress Gastrointestinal: Normal Bowel Sounds, Non Tender, Soft Back: Normal Inspection, No CVA Tenderness, No Vertebral Tenderness, Other ( Right-sided lower paravertebral tenderness, negative straight leg and reverse straight leg test) Extremity: Normal Capillary Refill, Normal Inspection, Normal Range of Motion, Non Tender, No Calf Tenderness, No Pedal Edema Neurologic/Psychiatric: Alert, No Motor/Sensory Deficits, Normal Mood/Affect, Other (Normal strength with dorsiflexion, plantarflexion, knee extension, knee flexion, hip extension, hip flexion) Skin: Normal Color, Warm/Dry Lymphatic: No Adenopathy Progress/Results/Core Measures Results/Orders My Orders Orders - BRETT CAROLINA MD Urine Bedside (01/05/22 09:00) Ketorolac Injection (Toradol Injection) (01/05/22 09:30) Gabapentin Capsule/Tablet (Neurontin Cap (01/05/22 09:30) Cyclobenzaprine Tablet (Flexeril Tablet) (01/05/22 09:20) Dexamethasone Oral Soln (Ed) (Decadron I (01/05/22 09:20) Vital Signs/I&O 01/05/22 09:17 Temp 36.5 Pulse 112 Resp 16 B/P (MAP) 137/103 (114) Pulse Ox 100 O2 Delivery Room Air Blood Pressure Mean: 114 Progress Progress Note : Progress Note 26-year-old female with above history coming in due to low back pain. ABCs were intact and vitals were stable on presentation. She has no red flags on clinical history for low back pain. She has no urinary symptoms. Pain is rather low and not consistent with ureterolithiasis. She was given meds for symptomatic treatment here. X-ray not obtained given lack of trauma and likely not useful at this time. I believe the patient is stable for discharge with outpatient follow-up. He was sent home with strict return precautions. Departure Impression Primary Impression: Low back pain Qualified Codes: M54.50 - Low back pain, unspecified Disposition: HOME, SELF-CARE Condition: Stable Departure-Patient Inst. Decision time for Depature: 09:40 Referrals: [facility]/FRANCISCO MACHADO,LOCAL PHYSICIAN (PCP) Primary Care Physician Patient Instructions: Low Back Pain ED Add. Discharge Instructions: I sent quite a few medicines to your pharmacy to help with pain. The lidocaine patch should be placed right where you hurt the most. The steroid we gave you in the ER is long acting and will be working for several days. Try to do some gentle stretching and movement at home, and I suspect your pain will be better within the next 2 weeks. If things are getting worse or not better by that time, schedule an appointment with [facility]. If you have any weakness on one side of your body, numbness or you cannot feel 1 side of her body, or any other concerns then you can always come back to the ER. The ketorolac that I wrote for you is a strong anti-inflammatory, do not take it with other NSAIDs such as ibuprofen or aspirin. You can still take Tylenol with this. Scripts Lidocaine (Lidocaine 5% Patch) 5 % Adh..patch 1 EACH TP Q12H PRN for Neuropathic pain MDD 2 for 7 Days, #14 PATCH 2 patches max for 12 hours, then 12 hours patch-free period. Prov: BRETT CAROLINA MD 01/05/22 Cyclobenzaprine HCl (Cyclobenzaprine HCl) 10 Mg Tablet 10 MG PO Q8H PRN for SPASMS for 5 Days, #15 TAB 0 Refills Prov: BRETT CAROLINA MD 01/05/22 Ketorolac Tromethamine (Ketorolac Tromethamine) 10 Mg Tablet 10 MG PO Q8H for 4 Days, #12 TAB Prov: BRETT CAROLINA MD 01/05/22 Work/School Note: Work Release Form Date Seen in the Emergency Department: Jan 05, 2022 Return to Work: Jan 09, 2022 Restrictions: No Restrictions BRETT CAROLINA MD Jan 05, 2022 09:27
[2022-01-05] MEDS ORDERED: LIDO700A45 TP (09:28)
[2022-01-05] MEDS ORDERED: CYCL10TA25 PO (09:28)
[2022-01-05] MEDS ORDERED: KETO10TA PO (09:28)
[2022-01-05] MEDS ORDERED: GABAPENTIN 100 MG (NEURONTIN) CAP PO ONE (09:30)
[2022-01-05] MEDS ORDERED: KETOROLAC 30 MG/ML VIAL IM ONE (09:30)
== END 2022-01-05 09:45 | disposition home or self-care (01) ==
LOC: EDUNIT# 08:56 → ER FS 08:57
DX: M54.50 Low back pain, unspecified (principal); F17.210 Nicotine dependence, cigarettes, uncomplicated
CPT/HCPCS: 84703; 99284

== ENCOUNTER 2022-01-27 18:34 | Emergency (ER) | payer MEDICAID ==
[~2022-01-27] VITALS: Ht 152.4 cm; Wt 89.3 kg
[~2022-01-27 18:34] MED LIST changes: +CYCL10TA25 PO; +KETO10TA PO; +LIDO700A45 TP
[2022-01-27] MEDS ORDERED: oxyCODONE/APAP 5/325MG (PERCOCET 5) TABLET PO ONE (18:45)
[2022-01-27] MEDS ORDERED: CYCLOBENZAPRINE 10 MG (FLEXERIL) TAB PO SCH (18:45)
--- NOTE | 2022-01-27 19:02 | ED Back Pain ---
General Chief Complaint: Back Problems Stated Complaint: BACK PAIN Nursing Triage Note: Pt reports back pain after moving furiniture on Sunday. Pt took a muscle relaxer. Denies urinary symptoms. Source of Information: Patient Exam Limitations: No Limitations History of Present Illness Date Seen by Provider: Jan 27, 2022 Time Seen by Provider: 18:40 Initial Comments Patient is a 26-year-old female with history of chronic back pain who presents with progressive low back pain now radiating to her upper thoracic spine. Symptoms began 3 days ago while seated. Patient denies trauma repetitive strain injury. 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 She reports occasional tingling in her hands but currently denies paresthesias. Denies arm weakness. ain is mild to moderate worse with palpation and lifting. Limited relief with medication. No other acute symptoms or complaints. Last menstrual period was 2 weeks ago Location: T-Spine Timing/Duration: Other Severity: Moderate Pain/Injury Location: Other Radiation: Other Method of Injury: Other Modifying Factors: Improves With Other Associated Symptoms: other Allergies and Home Medications Allergies Coded Allergies: Penicillins (Verified Allergy, Severe, 02/16/18) hospitalized as child for allergic reaction. Details unk. Amox causes rash clavulanic acid (Verified Allergy, Mild, HIVES, 01/02/20) amoxicillin (Verified Adverse Reaction, Mild, RASH, 01/02/20) Patient Home Medication List Home Medication List Reviewed: Yes Cyclobenzaprine HCl (Cyclobenzaprine HCl) 10 Mg Tablet, 10 MG PO Q8H PRN for SPASMS Prescribed by: BRETT CAROILNA on 01/05/22 0928 Docusate Sodium (Dok) 100 Mg Capsule, 100 MG PO BID PRN for CONSTIPATION-1ST LINE Prescribed by: GABY VASQUEZ on 01/10/20 0737 Hydrocodone/Acetaminophen (Hydrocodone-Acetamin 5-325 mg) 1 Each Tablet, 1-2 TAB PO Q6HR PRN for PAIN-MODERATE (5-7) Prescribed by: GABY VASQUEZ on 01/10/20 0737 Ibuprofen (Ibu) 600 Mg Tablet, 600 MG PO Q6HR Prescribed by: GABY VASQUEZ on 01/10/20 0737 Ketorolac Tromethamine (Ketorolac Tromethamine) 10 Mg Tablet, 10 MG PO Q8H Prescribed by: BRETT CAROLINA on 01/05/22 0928 Lidocaine (Lidocaine 5% Patch) 5 % Adh..patch, 1 EACH TP Q12H PRN for Neuropathic pain Prescribed by: BRETT CAROLINA on 01/05/2228 Sulfamethoxazole/Trimethoprim (Bactrim Ds Tablet) 1 Each Tablet, 1 EACH PO BID Prescribed by: SAUL GARCIA on 05/02/21 0026 Review of Systems Constitutional: see HPI EENTM: see HPI Respiratory: see HPI Cardiovascular: see HPI Gastrointestinal: see HPI Genitourinary: see HPI : No Musculoskeletal: see HPI Skin: see HPI Psychiatric/Neurological: See HPI All Other Systems Reviewed Negative Unless Noted: No Past Wcltvlv-Ixghef-Evffrp Hx Patient Social History Tobacco Use?: Yes Tobacco type used: Cigarettes Smoking Status: Current Everyday Smoker Use of E-Cig and/or Vaping dev: No Substance use?: No Alcohol Use?: No Pt feels they are or have been: No Immunizations Up To Date Tetanus Booster (TDap): Unknown PED Vaccines UTD: Yes Influenza Vaccine Up-to-Date: No; Not Current First/Initial COVID19 Vaccinat: denies Seasonal Allergies Seasonal Allergies: No Past Medical History Surgeries: Yes Adenoidectomy, Appendectomy, Section, Tonsillectomy Respiratory: No Cardiac: No Neurological: No Female Reproductive Disorders: Denies Sexually Transmitted Disease: No HIV/AIDS: No Genitourinary: No Kidney Stones Gastrointestinal: No Gastroesophageal Reflux Musculoskeletal: No Endocrine: No HEENT: No Loss of Vision: Denies Hearing Impairment: Denies Cancer: No Psychosocial: No Integumentary: No Blood Disorders: No Adverse Reaction/Blood Tranf: No Family Medical History Asthma G8 SISTER Diabetes mellitus 19 FATHER Seizure disorder 19 FATHER G8 SISTER Thyroid disease 19 MOTHER G8 SISTER Physical Exam Vital Signs Vital Signs - First Documented 01/27/22 18:35 Temp 36.6 Pulse 113 Resp 17 B/P (MAP) 143/103 (116) Pulse Ox 97 O2 Delivery Room Air Capillary Refill : Less Than 3 Seconds Height, Weight, BMI Height: 5'0" Weight: 195lbs. 0oz. [id number]; 38.00 BMI Method:Stated General Appearance: No Apparent Distress, Moderate Distress Respiratory: Lungs Clear, Normal Breath Sounds Back: No Vertebral Tenderness; No CVA Tenderness (L), No CVA Tenderness (R); Decreased Range of Motion, Muscle Spasm (Thoracic and lumbar paravertebral muscle spasm reproduces with range of motion and palpation) Neurologic/Psychiatric: No Motor/Sensory Deficits Progress/Results/Core Measures Results/Orders My Orders Orders - PIETER BROWNLEE DO Oxycodone/Apap 5/325mg Tablet (Percocet (01/27/22 18:45) Cyclobenzaprine Tablet (Flexeril Tablet) (01/27/22 18:45) Medications Given in ED Current Medications Medications Dose Ordered Sig/Eleni Route Start Time Stop Time Status Last Admin Dose Admin Oxycodone/ Acetaminophen 2 tab ONCE ONCE PO 01/27/22 18:45 01/27/22 18:48 DC 01/27/22 18:51 2 TAB Vital Signs/I&O 01/27/22 18:35 Temp 36.6 Pulse 113 Resp 17 B/P (MAP) 143/103 (116) Pulse Ox 97 O2 Delivery Room Air Blood Pressure Mean: 116 Departure Communication (Admissions) Mechanical back pain without neurologic deficits. Pain injuries. Recommend ations are supportive care with watchful waiting and PCP follow-up. Return precautions reviewed. Patient verbalizes understanding agreement discharge instructions prior to departure. Impression Primary Impression: Spasm of thoracic back muscle Disposition: HOME, SELF-CARE Condition: Stable Departure-Patient Inst. Decision time for Depature: 19:01 Referrals: NO,LOCAL PHYSICIAN (PCP/Family) Primary Care Physician Patient Instructions: Muscle Spasm ED, Upper Back Pain ED Add. Discharge Instructions: You were evaluated in the ER for upper back pain. Your symptoms are consistent with muscle spasm. Please continue ketorolac and take newly prescribed muscle relaxant as directed. Follow-up with your PCP in 2 to 3 days. Return to the ED if new or worsening symptoms. All discharge instructions reviewed with patient and/or family. Voiced understanding. Scripts Cyclobenzaprine HCl (Cyclobenzaprine HCl) 10 Mg Tablet 10 MG PO Q8H PRN for SPASMS, #15 TAB 0 Refills Prov: PIETER BROWNLEE DO 01/27/22 PIETER BROWNLEE DO Jan 27, 2022 19:02
[2022-01-27] MEDS ORDERED: CYCL10TA25 PO (19:03)
[2022-01-27 19:08] VITALS: BP 143/103
== END 2022-01-27 19:08 | disposition home or self-care (01) ==
LOC: EDUNIT# 18:34 → ER FS 18:35
DX: M62.830 Muscle spasm of back (principal); F17.210 Nicotine dependence, cigarettes, uncomplicated; Z28.310 Unvaccinated for COVID-19
CPT/HCPCS: 99283

== ENCOUNTER 2022-08-08 08:49 | Emergency (ER) | payer MEDICAID ==
[2022-08-08] MEDS ORDERED: ACETAMINOPHEN 500 MG TAB (TYLENOL) PO STA (09:17)
[2022-08-08] MEDS ORDERED: NS IV 1000 ML 1,000 ML IV STA (09:17)
[2022-08-08 09:24] LABS: BILIRUBIN,URINE NEGATIVE (NEGATIVE); CLARITY,URINE SL CLOUDY; COLOR,URINE YELLOW; GLUCOSE, URINE (UA) NEGATIVE (NEGATIVE); KETONES,URINE NEGATIVE (NEGATIVE); LEUKOCYTE ESTERASE ,URINE NEGATIVE (NEGATIVE); NITRITE,URINE NEGATIVE (NEGATIVE); PH,URINE 5.5 (5-9); PROTEIN,URINE NEGATIVE (NEGATIVE)
[2022-08-08 09:39] LABS: BASOPHILS % (AUTO) 0 % (0-10); EOSINOPHILS # (AUTO) 0.3 10^3/uL (0.0-0.3); EOSINOPHILS % (AUTO) 3 % (0-10); HEMATOCRIT 35 % (35-52); HEMOGLOBIN 10.7 g/dL (11.5-16.0); LYMPHOCYTES # (AUTO) 1.9 10^3/uL (1.0-4.0); LYMPHOCYTES % (AUTO) 25 % (12-44); MEAN CORPUSCULAR HEMOGLOBIN 21 pg (25-34); MEAN CORPUSCULAR HGB CONC 30 g/dL (32-36); MEAN CORPUSCULAR VOLUME 69 fL (80-99); MEAN PLATELET VOLUME 9.2 fL (9.0-12.2); MONOCYTES # (AUTO) 0.6 10^3/uL (0.0-1.0); MONOCYTES % (AUTO) 8 % (0-12); NEUTROPHILS % (AUTO) 64 % (42-75); PLATELET COUNT 377 10^3/uL (130-400); WHITE BLOOD COUNT 7.8 10^3/uL (4.3-11.0)
--- NOTE | 2022-08-08 09:43 | ED GU-Female ---
General Chief Complaint: OB < 20 WEEKS Stated Complaint: VAGINAL BLEEDING DURING Nursing Triage Note: Patient presents to the ED with c/o abdominal cramping and vaginal bleeding during . Reports LMP 07-04-22 and first positive home test 08-03-22. Reports intermittent bright red vaginal spotting for 6 days. Abdominal cramping more painful on right side. Source: patient History of Present Illness Date Seen by Provider: Aug 08, 2022 Time Seen by Provider: 08:58 Initial Comments 27-year-old G5, P3 with 1 miscarriage female presenting with complaints of vagin al spotting and cramping since August 02. She had her last menstrual cycle July 05 through the . She thought that she was just having her regular period when she started spotting on the but usually she has clots and she was not having any of that at this time. She stopped bleeding on and has had intermittent spotting since then. She had done 2 tests at home that were both positive. She had increased pain and cramping today and felt that it was worse on the right side. She came to the emergency department to be evaluated and states that she had called the clinic and they told her to get an ultrasound. She denies having fever, chills, vaginal discharge, pain with urination, change in her bowels. She did have 1 episode of vomiting today with the pain. She took some Tylenol earlier this morning for pain. She woke up around 2 AM with increased cramping and pain but states that the spotting has continued and has not been heavy enough to need a pad. From review of her last delivery note from Dr. VASQUEZ he noted that she was B+ blood type and Rh antibody negative. Timing/Duration: week, intermittent Severity/Quality: mild Activities at Onset: none Prior Genitourinary Problems: none Sexual Hustler History: less than 2 months ago Associated Symptoms: No diaphoresis, No dysuria, No fever/chills, No loss of bladder control, No lower back pain, No lumps, No mass; nausea/vomiting (x1 today); No nocturia, No polyuria, No swelling, No syncope, No urinary frequency Allergies and Home Medications Allergies Coded Allergies: Penicillins (Verified Allergy, Severe, 02/16/18) hospitalized as child for allergic reaction. Details unk. Amox causes rash clavulanic acid (Verified Allergy, Mild, HIVES, 6/12/20) amoxicillin (Verified Adverse Reaction, Mild, RASH, 01/02/20) Patient Home Medication List Home Medication List Reviewed: Yes Cyclobenzaprine HCl (Cyclobenzaprine HCl) 10 Mg Tablet, 10 MG PO Q8H PRN for SPASMS Prescribed by: BRETT CAROLINA on 01/05/22927 Cyclobenzaprine HCl (Cyclobenzaprine HCl) 10 Mg Tablet, 10 MG PO Q8H PRN for SPASMS Prescribed by: PIETER BROWNLEE on 01/27/221902 Docusate Sodium (Dok) 100 Mg Capsule, 100 MG PO BID PRN for CONSTIPATION-1ST LINE Prescribed by: GABY VASQUEZ on 01/10/20736 Hydrocodone/Acetaminophen (Hydrocodone-Acetamin 5-325 mg) 1 Each Tablet, 1-2 TAB PO Q6HR PRN for PAIN-MODERATE (5-7) Prescribed by: GABY VASQUEZ on 01/10/20736 Ibuprofen (Ibu) 600 Mg Tablet, 600 MG PO Q6HR Prescribed by: GABY VASQUEZ on 01/10/20736 Ketorolac Tromethamine (Ketorolac Tromethamine) 10 Mg Tablet, 10 MG PO Q8H Prescribed by: BRETT CAROLINA on 01/05/22927 Lidocaine (Lidocaine 5% Patch) 5 % Adh..patch, 1 EACH TP Q12H PRN for Neuropathi c pain Prescribed by: BRETT CAROLINA on 01/05/22927 Sulfamethoxazole/Trimethoprim (Bactrim Ds Tablet) 1 Each Tablet, 1 EACH PO BID Prescribed by: SAUL GARCIA on 05/02/21 0026 Review of Systems Review of Systems Constitutional: see HPI EENTM: no symptoms reported Respiratory: no symptoms reported Cardiovascular: no symptoms reported Gastrointestinal: see HPI Genitourinary: see HPI : Yes (positive home HCG urine test) LMP: Jul 05, 2022 Musculoskeletal: no symptoms reported Skin: no symptoms reported Psychiatric/Neurological: No Symptoms Reported Endocrine: No Symptoms Reported Hematologic/Lymphatic: No Symptoms Reported Past Volziwc-Lwmovh-Yvtkgz Hx Patient Social History Tobacco Use?: Yes Tobacco type used: Cigarettes Smoking Status: Current Everyday Smoker Use of E-Cig and/or Vaping dev: No Substance use?: No Alcohol Use?: No Pt feels they are or have been: No Immunizations Up To Date Tetanus Booster (TDap): Unknown PED Vaccines UTD: Yes First/Initial COVID19 Vaccinat: denies Second COVID19 Vaccination James: denies Third COVID19 Vaccination Date: denies Seasonal Allergies Seasonal Allergies: No Past Medical History Surgery/Hospitalization HX: Sciatic nerve pain; x3; Appendectomy; T&A; Surgeries: Yes Adenoidectomy, Appendectomy, Section, Tonsillectomy Respiratory: No Cardiac: No Neurological: No Last Menstrual Period: Jul 04, 2022 Female Reproductive Disorders: Denies Sexually Transmitted Disease: No HIV/AIDS: No Genitourinary: No Kidney Stones Gastrointestinal: No Gastroesophageal Reflux Musculoskeletal: No Endocrine: No HEENT: No Loss of Vision: Denies Hearing Impairment: Denies Cancer: No Psychosocial: No Integumentary: No Blood Disorders: No Adverse Reaction/Blood Tranf: No Family Medical History Asthma G8 SISTER Diabetes mellitus 19 FATHER Seizure disorder 19 FATHER G8 SISTER Thyroid disease 19 MOTHER G8 SISTER Physical Exam Vital Signs Vital Signs - First Documented 08/08/22 09:04 Temp 36.7 Pulse 107 Resp 16 B/P (MAP) 144/92 (109) Pulse Ox 99 O2 Delivery Room Air Capillary Refill : Less Than 3 Seconds Height, Weight, BMI Height: 5'0" Weight: 195lbs. 0oz. 88.360262yg; 38.00 BMI Method:Stated General Appearance: WD/WN, no apparent distress Cardiovascular: normal peripheral pulses, regular rate, rhythm Respiratory: chest non-tender, lungs clear, normal breath sounds, no respiratory distress, no accessory muscle use Gastrointestinal: normal bowel sounds, non tender, soft, no pulsatile mass Rectal: deferred Extremities: normal range of motion, non-tender, normal capillary refill Neurologic/Psychiatric: alert, oriented x 3 Skin: normal color, warm/dry Progress/Results/Core Measures Suspected Sepsis SIRS Temperature: Pulse: 107 Respiratory Rate: 16 Laboratory Tests 08/08/22 09:27: White Blood Count 7.8 Blood Pressure 144 /92 Mean: 109 Laboratory Tests 08/08/22 09:27: Platelet Count 377 Results/Orders Lab Results Laboratory Tests Test 08/08/22 09:00 08/08/22 09:27 Range/Units Urine Color YELLOW Urine Clarity SL CLOUDY Urine pH 5.5 5-9 Urine Specific [place] >=1.030 1.016-1.022 Urine Protein NEGATIVE NEGATIVE Urine Glucose (UA) NEGATIVE NEGATIVE Urine Ketones NEGATIVE NEGATIVE Urine Nitrite NEGATIVE NEGATIVE Urine Bilirubin NEGATIVE NEGATIVE Urine Urobilinogen 0.2 < = 1.0 MG/DL Urine Leukocyte Esterase NEGATIVE NEGATIVE Urine RBC (Auto) 3+ H NEGATIVE Urine RBC 0-2 /HPF Urine WBC 2-5 /HPF Urine Squamous Epithelial Cells 10-25 H /HPF Urine Crystals NONE /LPF Urine Bacteria TRACE /HPF Urine Casts NONE /LPF Urine Mucus MODERATE H /LPF Urine Culture Indicated NO White Blood Count 7.8 4.3-11.0 10^3/uL Red Blood Count 5.10 3.80-5.11 10^6/uL Hemoglobin 10.7 L 11.5-16.0 g/dL Hematocrit 35 35-52 % Mean Corpuscular Volume 69 L 80-99 fL Mean Corpuscular Hemoglobin 21 L 25-34 pg Mean Corpuscular Hemoglobin Concent 30 L 32-36 g/dL Red Cell Distribution Width 15.9 H 10.0-14.5 % Platelet Count 377 130-400 10^3/uL Mean Platelet Volume 9.2 9.0-12.2 fL Immature Granulocyte % (Auto) 0 % Neutrophils (%) (Auto) 64 42-75 % Lymphocytes (%) (Auto) 25 12-44 % Monocytes (%) (Auto) 8 0-12 % Eosinophils (%) (Auto) 3 0-10 % Basophils (%) (Auto) 0 0-10 % Neutrophils # (Auto) 5.0 1.8-7.8 10^3/uL Lymphocytes # (Auto) 1.9 1.0-4.0 10^3/uL Monocytes # (Auto) 0.6 0.0-1.0 10^3/uL Eosinophils # (Auto) 0.3 0.0-0.3 10^3/uL Basophils # (Auto) 0.0 0.0-0.1 10^3/uL Immature Granulocyte # (Auto) 0.0 0.0-0.1 10^3/uL Human Chorionic Gonadotropin, Quant 41 H <5 MIU/ML My Orders Orders - ROSE HENDRICKSON MD Ua Culture If Indicated (08/08/22 09:17) Ed Iv/Invasive Line Start (08/08/22 09:17) Cbc With Automated Diff (08/08/22 09:17) Urine Bedside (08/08/22 09:17) Hcg,Quantitative (08/08/22 09:17) Ns Iv 1000 Ml (Sodium Chloride 0.9%) (08/08/22 09:17) Acetaminophen Tablet (Tylenol Tablet) (08/08/22 09:17) Us Ob<14 Wks Sngle W/Transvag (08/08/22 10:05) Vital Signs/I&O 08/08/22 08/08/22 09:04 11:52 Temp 36.7 36.7 Pulse 107 98 Resp 16 16 B/P (MAP) 144/92 (109) 138/87 Pulse Ox 99 99 O2 Delivery Room Air Room Air Capillary Refill : Less Than 3 Seconds Blood Pressure Mean: 109 Progress Note #1: Progress Note Patient at risk for threatened miscarriage, ovarian torsion, tubal , blighted ovum To evaluate the patient will obtain urine with bedside test, CBC, quantitative hCG. Administer normal saline 1 L IV fluid bolus for hydration to see if that might help with her pain and symptoms as well as given her a dose of Tylenol 1 g p.o for her complaint of pelvic cramping worse on right side. She had no increased pain with palpation of her abdomen or pelvis. And she also stated the spotting was light and not to the point of needing a pad. Will recheck after fluids infused and lab results are back. Progress Note #2: Time: 09:57 Progress Note Bedside urine was faintly positive at 5 minutes but initially was negative. Urinalysis came back showing elevated specific gravity greater than 1.030 for some dehydration. She did have some red blood cells for bleeding. Her CBC showed some anemia but not an elevated white blood cell count. Her quantitative hCG came back at 41. Since patient was complaining of pain worse on the right side will order a pelvic/transvaginal ultrasound to evaluate for blood flow to the ovaries and uterus as well as ensure there is no torsion or mass or fluid buildup in the fallopian tubes. Counseled patient and family on the findings and results. She reported some improvement in her pain and symptoms with the IV fluids and Tylenol. Counseled that once we have the ultrasound we could discuss further about discharge planning and follow-up. However I did warn her that any time that you are and having spotting or bleeding there is a chance that this could proceed into a miscarriage. She should avoid inserting anything in her vagina such as sex or tampons. This was also reviewed with her. Progress Note #3: Time: 11:43 Progress Note I reviewed the radiologist report of the ultrasound. They advised in the report that she had a intrauterine gestational sac that measured approximately 5 to 6 weeks estimated gestational age. By her LMP she would be 4 weeks and 6 days estimated gestational age. Unable to determine viability due to the early presentation and no definite heart tones. Dr. Horowitz with Radiology recommended repeat ultrasound in approximately 11 days to assess viability. Patient had good blood flow to bilateral ovaries and there is no fluid buildup or signs of fallopian tube mass or swelling and no signs of ovarian torsion. Reviewed findings with patient and family. Counseled to avoid inserting anything in the vagina. Stay well-hydrated. Give outpatient order for ultrasound to be done next , August 17. She could also follow-up through the clinic with Dr. Benoit or Dr. VASQUEZ and can have the testing done with them. Counseled on possibility of miscarriage and concerning signs for return to have emergent care such as bleeding saturating more than a pad an hour for 2 hours, fever over 101 Fahrenheit, increased pelvic pain. May continue with acetaminophen [id number] for pain and increase oral fluid intake. Diagnostic Imaging Diagonstic Imaging: Ultrasound Plain Films/CT/US/NM/MRI: pelvis Comments NAME: [facility] REC#: [id number] PT STATUS: REG ER : 1995 PHYSICIAN: ROSE HENDRICKSON MD ADMIT DATE: 08/08/22/ER FS Draft Date of Exam:08/08/22 US OB<14 WKS SNGLE W/TRANSVAG EXAM: First Trimester Ultrasound INDICATIONS: Age by LMP is 4 weeks, 6 days. Vaginal bleeding. TECHNIQUE: The pelvis was scanned using transabdominal and endovaginal technique. COMPARISON: None FINDINGS: Endovaginal sonography demonstrates a single intrauterine gestation within an irregular gestational sac. heart rate activity is not detected on this exam. A normal appearing secondary yolk sac is identified. The appearance of the embryo and gestation is normal for age. No evidence of subchorionic hemorrhage. Both ovaries were identified and appear normal. The left measures 2.7 x 1.7 x 2.0 cm, and the right 2.1 x 0.9 x 1.6 cm. No abnormal adnexal masses. No free fluid. biometry: Mean sac diameter 6.7 mm: 5 weeks, 2 days. [place] rump length 3.9 mm: 6 weeks, 1 days. IMPRESSION: Intrauterine gestation of uncertain viability. Estimated gestational age 6 weeks and 1 day by today's ultrasound. Recommend ultrasound follow-up in 11 days to determine viability. Dictated on workstation # [id number] Dict: 08/08/22 1123 Trans: 08/08/22 1135 [id number] [id number] Interpreted by: TERESO HOROWITZ DO Electronically signed by: Reviewed: Reviewed by Me Departure Impression Primary Impression: Vaginal bleeding affecting early Additional Impressions: Threatened miscarriage in early Dehydration Disposition: 01 HOME, SELF-CARE Condition: Stable Departure-Patient Inst. Decision time for Depature: 11:47 Referrals: GABRIEL BENOIT MD (PCP) Primary Care Physician GABY VASQUEZ DO Patient Instructions: Bleeding in Early ED, Dehydration, Adult ED, Threatened Miscarriage (DC) Add. Discharge Instructions: Stay well hydrated and drink plenty of water and electrolyte drinks. Do not insert anything in your vagina. No sex and no Tampons. Follow up with clinic for continued concerns. Return or seek emergent medical care for bleeding that is saturating more than a pad an hour for 2 hours, fever over 101 F, increasing pelvic pain. You may continue to take Acetaminophen over the counter to help with pain. You could also try using a heating pad or warm blanket to try and help with the pelv ic pain and cramping. All discharge instructions reviewed with patient and/or family. Voiced understanding. Work/School Note: Work Release Form Date Seen in the Emergency Department: Aug 08, 2022 Return to Work: Aug 09, 2022 Restrictions: No Restrictions ROSE HENDRICKSON MD Aug 08, 2022 09:43
[2022-08-08 09:57] LABS: BACTERIA,URINE TRACE /HPF; RBC,URINE 0-2 /HPF
--- NOTE | 2022-08-08 11:35 | Diagnostic Imaging Report ---
EXAM: First Trimester Ultrasound INDICATIONS: Age by LMP is 4 weeks, 6 days. Vaginal bleeding. TECHNIQUE: The pelvis was scanned using transabdominal and endovaginal technique. COMPARISON: None FINDINGS: Endovaginal sonography demonstrates a single intrauterine gestation within an irregular gestational sac. heart rate activity is not detected on this exam. A normal appearing secondary yolk sac is identified. The appearance of the embryo and gestation is normal for age. No evidence of subchorionic hemorrhage. Both ovaries were identified and appear normal. The left measures 2.7 x 1.7 x 2.0 cm, and the right 2.1 x 0.9 x 1.6 cm. No abnormal adnexal masses. No free fluid. biometry: Mean sac diameter 6.7 mm: 5 weeks, 2 days. [place] rump length 3.9 mm: 6 weeks, 1 days. IMPRESSION: Intrauterine gestation of uncertain viability. Estimated gestational age 6 weeks and 1 day by today's ultrasound. Recommend ultrasound follow-up in 11 days to determine viability. Dictated by: Dictated on workstation # [id number]
[2022-08-08 11:52] VITALS: BP 138/87
== END 2022-08-08 11:53 | disposition home or self-care (01) ==
LOC: EDUNIT# 08:49 → ER FS 08:51
DX: O20.0 Threatened abortion (principal); O99.281 Endocrine, nutritional and metabolic diseases complicating pregnancy, first trimester; E86.0 Dehydration; O99.331 Smoking (tobacco) complicating pregnancy, first trimester; F17.210 Nicotine dependence, cigarettes, uncomplicated; Z3A.01 Less than 8 weeks gestation of pregnancy; Z28.310 Unvaccinated for COVID-19
CPT/HCPCS: 36415; 76801; 76817; 81000; 84702; 84703; 85025

== ENCOUNTER → 2022-08-17 | Outpatient (CLI) | payer MEDICAID ==
--- NOTE | 2022-08-17 10:31 | Diagnostic Imaging Report ---
INDICATION: 1st trimester bleeding. Comparison is made with recent ultrasound from 08/08/2022. Uterus measures 7.9 x 5.0 x 6.0 cm. There is now an irregular cystic structure noted in the lower uterine segment which may represent an irregular gestational sac. No pole is seen at this time. Ovaries are unremarkable. No adnexal mass is seen. There is some free fluid detected. IMPRESSION: Migration of an irregular gestational sac into the lower uterine segment near the cervix consistent with spontaneous . No pole is seen at this time. Dictated by: Dictated on workstation # [id number]
== END ==
LOC: RAD FS 08:54
PROVIDERS: ATTEND Family Medicine
DX: O20.0 Threatened abortion (principal)
CPT/HCPCS: 76801; 76817

== ENCOUNTER → 2022-08-21 | Outpatient (CLI) | payer MEDICAID | LOC: LAB FS 10:09 | PROVIDERS: ATTEND Obstetrics & Gynecology | DX: O03.9 Complete or unspecified spontaneous abortion without complication (principal); Z3A.00 Weeks of gestation of pregnancy not specified | CPT/HCPCS: 36415; 84702 ==

== ENCOUNTER → 2022-08-28 | Outpatient (CLI) | payer MEDICAID | LOC: LAB FS 08:14 | PROVIDERS: ATTEND Obstetrics & Gynecology | DX: O03.9 Complete or unspecified spontaneous abortion without complication (principal) | CPT/HCPCS: 36415; 84702 ==

== ENCOUNTER 2022-12-07 13:27 | Emergency (ER) | payer MEDICAID ==
[~2022-12-07] VITALS: Ht 152 cm; Wt 87.0 kg
[2022-12-07 13:38] VITALS: BP 127/89
--- NOTE | 2022-12-07 13:50 | ED General ---
General Chief Complaint: Head/Cervical Problems Stated Complaint: HEADACHE; VOMITING Nursing Triage Note: Patient has presented to ER with cc of headache and vomiting for the last 3 days. She has taken tyelnol for the pain. She reports being 11 weeks and the headahce is making the nausea worse. She reports that the light and noise makes the headache worse. Source of Information: Patient Exam Limitations: No Limitations History of Present Illness Date Seen by Provider: December 07, 2022 Time Seen by Provider: 13:35 Initial Comments This 27-year-old young lady presents to the emergency room at approximately 11 weeks gestational age with complaint of right-sided headache for the past 3 days. She has been taking Tylenol without much relief. She also has been experiencing related nausea and vomiting which has worsened with this headache. She feels dry. The headache is on the right side and sometimes feels like a stabbing behind the eye. She occasionally has some visual aura in the right eye. She is not accustomed to headaches this severe and prolonged but did have headaches associated with one of her other pregnancies. Her obstetrical provider is Dr. Brito. Her primary care provider is Dr. Benoit. Blood pressure is normal. Allergies and Home Medications Allergies Coded Allergies: Penicillins (Verified Allergy, Severe, 02/16/18) hospitalized as child for allergic reaction. Details unk. Amox causes rash clavulanic acid (Verified Allergy, Mild, HIVES, 01/02/20) amoxicillin (Verified Adverse Reaction, Mild, RASH, 01/02/20) Patient Home Medication List Home Medication List Reviewed: Yes Cyclobenzaprine HCl (Cyclobenzaprine HCl) 10 Mg Tablet, 10 MG PO Q8H PRN for SPASMS Prescribed by: BRETT CAROLINA on 01/05/22 0928 Cyclobenzaprine HCl (Cyclobenzaprine HCl) 10 Mg Tablet, 10 MG PO Q8H PRN for SPASMS Prescribed by: PIETER BROWNLEE on 01/27/22 190 Docusate Sodium (Dok) 100 Mg Capsule, 100 MG PO BID PRN for CONSTIPATION-1ST LINE Prescribed by: GABY VASQUEZ on 01/10/20 0737 Hydrocodone/Acetaminophen (Hydrocodone-Acetamin 5-325 mg) 1 Each Tablet, 1-2 TAB PO Q6HR PRN for PAIN-MODERATE (5-7) Prescribed by: GABY VASQUEZ on 01/10/20 0737 Ibuprofen (Ibu) 600 Mg Tablet, 600 MG PO Q6HR Prescribed by: GABY VASQUEZ on 01/10/2037 Ketorolac Tromethamine (Ketorolac Tromethamine) 10 Mg Tablet, 10 MG PO Q8H Prescribed by: BRETT CAROLINA on 01/05/22 09 Lidocaine (Lidocaine 5% Patch) 5 % Adh..patch, 1 EACH TP Q12H PRN for Neuropathic pain Prescribed by: BRETT CAROLINA on 01/05/22 0928 Promethazine HCl (Promethazine Tablet) 25 Mg Tablet, 25 MG PO Q6H PRN for NAUSEA/VOMITING Prescribed by: AISSATOU SOLANO on 12/07/22 1454 Sulfamethoxazole/Trimethoprim (Bactrim Ds Tablet) 1 Each Tablet, 1 EACH PO BID Prescribed by: SAUL GARCIA on 05/02/21 0026 Review of Systems Review of Systems Constitutional: no symptoms reported EENTM: no symptoms reported Respiratory: no symptoms reported Cardiovascular: no symptoms reported Gastrointestinal: see HPI Genitourinary: no symptoms reported : Yes Musculoskeletal: no symptoms reported Skin: no symptoms reported Psychiatric/Neurological: No Symptoms Reported Hematologic/Lymphatic: No Symptoms Reported Past Lsauizp-Wzvlyh-Ooofxw Hx Patient Social History Tobacco Use?: Yes Tobacco type used: Cigarettes Use of E-Cig and/or Vaping dev: No Substance use?: No Alcohol Use?: No Immunizations Up To Date Tetanus Booster (TDap): Unknown PED Vaccines UTD: Yes First/Initial COVID19 Vaccinat: denies Second COVID19 Vaccination James: denies Third COVID19 Vaccination Date: denies Seasonal Allergies Seasonal Allergies: No Past Medical History Surgery/Hospitalization HX: Sciatic nerve pain; x3; Appendectomy; T&A; Surgeries: Yes Adenoidectomy, Appendectomy, Section, Tonsillectomy Respiratory: No Cardiac: No Neurological: No Female Reproductive Disorders: Denies Sexually Transmitted Disease: No HIV/AIDS: No Genitourinary: No Kidney Stones Gastrointestinal: No Gastroesophageal Reflux Musculoskeletal: No Endocrine: No HEENT: No Loss of Vision: Denies Hearing Impairment: Denies Cancer: No Psychosocial: No Integumentary: No Blood Disorders: No Adverse Reaction/Blood Tranf: No Family Medical History Asthma G8 SISTER Diabetes mellitus 19 FATHER Seizure disorder 19 FATHER G8 SISTER Thyroid disease 19 MOTHER G8 SISTER Physical Exam Vital Signs Vital Signs - First Documented 12/07/22 13:38 Temp 37.0 Pulse 109 Resp 16 B/P (MAP) 127/89 (102) Pulse Ox 100 O2 Delivery Room Air Capillary Refill : Height, Weight, BMI Height: 5'0" Weight: 195lbs. 0oz. 88.837516lf; 37.00 BMI Method:Stated General Appearance: No Apparent Distress, WD/WN HEENT: PERRL/EOMI, TMs Normal, Normal ENT Inspection, Pharynx Normal Neck: Normal Inspection Respiratory: Lungs Clear, Normal Breath Sounds Cardiovascular: Regular Rate, Rhythm, No Edema, No Murmur Gastrointestinal: Normal Bowel Sounds, No Organomegaly, Soft Extremity: Normal Inspection, No Pedal Edema Neurologic/Psychiatric: Alert, Oriented x3, No Motor/Sensory Deficits, Normal Mood/Affect Skin: Normal Color, Warm/Dry Progress/Results/Core Measures Suspected Sepsis SIRS Temperature: Pulse: 109 Respiratory Rate: 16 Blood Pressure 127 /89 Mean: 102 Laboratory Tests 12/07/22 13:50: Creatinine 0.50L Results/Orders Lab Results Laboratory Tests Test 12/07/22 13:50 Range/Units Sodium Level 137 135-145 MMOL/L Potassium Level 3.4 L 3.6-5.0 MMOL/L Chloride Level 106 98-107 MMOL/L Carbon Dioxide Level 21 21-32 MMOL/L Anion Gap 10 5-14 MMOL/L Blood Urea Nitrogen 5 L 7-18 MG/DL Creatinine 0.50 L 0.60-1.30 MG/DL Estimat Glomerular Filtration Rate 133 BUN/Creatinine Ratio 10 Glucose Level 96 70-105 MG/DL Calcium Level 8.9 8.5-10.1 MG/DL Magnesium Level 1.8 1.6-2.4 MG/DL My Orders Orders - AISSATOU KELSEY MD Ed Iv/Invasive Line Start (12/07/22 13:46) Lactated Ringers (Lr 1000 Ml Iv Solution (12/07/22 14:00) Promethazine Injection (Phenergan Injec (12/07/22 14:00) Diphenhydramine Tablet (Benadryl Tablet) (12/07/22 14:00) Acetaminophen Tablet (Tylenol Tablet) (12/07/22 14:00) Basic Metabolic Panel (12/07/22 13:47) Magnesium (12/07/22 13:47) Diphenhydramine Tablet (Benadryl Tablet) (12/07/22 14:52) Medications Given in ED Current Medications Medications Dose Ordered Sig/Eleni Route Start Time Stop Time Status Last Admin Dose Admin Acetaminophen 1,000 mg ONCE ONCE PO 12/07/22 14:00 12/07/22 14:01 DC 12/07/22 14:00 1,000 MG Diphenhydramine HCl 25 mg ONCE ONCE PO 12/07/22 14:00 12/07/22 14:01 DC 12/07/22 14:00 25 MG Lactated Ringer's 1,000 ml @ 0 mls/hr Q0M ONCE IV 12/07/22 14:00 12/07/22 14:01 DC 12/07/22 13:57 0 MLS/HR Promethazine HCl 25 mg ONCE ONCE IVP 12/07/22 14:00 12/07/22 14:01 DC 12/07/22 13:58 25 MG Vital Signs/I&O 12/07/22 13:38 Temp 37.0 Pulse 109 Resp 16 B/P (MAP) 127/89 (102) Pulse Ox 100 O2 Delivery Room Air Capillary Refill : Blood Pressure Mean: 102 Progress Note : Progress Note Labs were obtained and BMP was unremarkable except slightly low potassium at 3.4. Magnesium was also unremarkable. Labs were reviewed and interpreted by bridgette rodriguez. Patient was hydrated with a liter of IV fluid. Phenergan 25 mg was given in the fluid. Nausea resolved. Headache persisted. She was further treated with Benadryl and Tylenol. She is going to discuss further headache management that would be acceptable during first trimester with Dr. Brito. See discharge instructions for further discussion. Departure Impression Primary Impression: Acute headache Qualified Codes: R51.9 - Headache, unspecified Additional Impressions: Nausea & vomiting Qualified Codes: R11.2 - Nausea with vomiting, unspecified Qualified Codes: Z3A.11 - 11 weeks gestation of Disposition: 01 HOME, SELF-CARE Condition: Improved Departure-Patient Inst. Decision time for Depature: 14:52 Referrals: GABRIEL BENOIT MD (PCP) Primary Care Physician Patient Instructions: Headache, Adult ED Add. Discharge Instructions: Drink plenty of clear liquids to stay well-hydrated. Eating small quantities of healthy foods frequently throughout the day helps reduce nausea and vomiting. You may take Phenergan (promethazine) as prescribed for nausea and vomiting. Phenergan may cause drowsiness. Use with caution and do not drive, operate machinery, or make important decisions while using Phenergan. You may continue taking Tylenol (acetaminophen) up to 1000 mg every 6 hours as needed for pain. Contact Dr. Brito's office regarding further management of your headaches during . It is generally considered safe to use ibuprofen during the second trimester only. Please discuss with Dr. Brito before using ibuprofen or other NSAID medications. Return to the ER if you have worsening symptoms despite following these instructions. All discharge instructions reviewed with patient and/or family. Voiced understanding. Scripts Promethazine HCl (Promethazine Tablet) 25 Mg Tablet 25 MG PO Q6H PRN for NAUSEA/VOMITING, #10 TAB Prov: AISSATOU KELSEY MD 12/07/22 Work/School Note: Work Release Form Date Seen in the Emergency Department: December 07, 2022 Return to Work: December 08, 2022 Restrictions: No Restrictions Copy Copies To 1: JOY BRITO MD; [facility]/AISSATOU ZACARIAS MD December 07, 2022 13:50
[2022-12-07] MEDS ORDERED: LACTATED RINGERS 1,000 ML IV ONE (14:00)
[2022-12-07] MEDS ORDERED: diphenhydrAMINE 25 MG TAB (BENADRYL) PO ONE ×2 (14:00→14:52)
[2022-12-07] MEDS ORDERED: PROMETHAZINE INJ 25 MG/ML (PHENERGAN) AMP IVP ONE (14:00)
[2022-12-07] MEDS ORDERED: ACETAMINOPHEN 500 MG TAB (TYLENOL) PO ONE (14:00)
[2022-12-07 14:18] LABS: CREATININE SERUM 0.5 MG/DL (0.60-1.30); POTASSIUM 3.4 MMOL/L (3.6-5.0)
[2022-12-07 14:19] LABS: CALCIUM 8.9 MG/DL (8.5-10.1); MAGNESIUM 1.8 MG/DL (1.6-2.4)
[2022-12-07] MEDS ORDERED: PROM25TA14 PO (14:54)
== END 2022-12-07 15:00 | disposition home or self-care (01) ==
LOC: EDUNIT# 13:27 → ER FS 13:28
DX: O99.891 Other specified diseases and conditions complicating pregnancy (principal); R51.9 Headache, unspecified; O21.9 Vomiting of pregnancy, unspecified; O99.281 Endocrine, nutritional and metabolic diseases complicating pregnancy, first trimester; E87.6 Hypokalemia; O99.331 Smoking (tobacco) complicating pregnancy, first trimester; F17.210 Nicotine dependence, cigarettes, uncomplicated; Z3A.11 11 weeks gestation of pregnancy; Z28.310 Unvaccinated for COVID-19
CPT/HCPCS: 36415; 80048; 83735

== ENCOUNTER 2023-01-30 01:07 | Emergency (ER) | payer MEDICAID ==
[~2023-01-30] VITALS: Ht 152.4 cm; Wt 85.7 kg
[~2023-01-30 01:07] MED LIST changes: +PROM25TA14 PO
--- NOTE | 2023-01-30 01:24 | ED Upper Extremity ---
General Stated Complaint: RIGHT HAND INJ Source: patient History of Present Illness Date Seen by Provider: Jan 30, 2023 Time Seen by Provider: 01:09 Initial Comments 27-year-old female presenting with complaints of pain to her left arm and hand. She was trying to walk her dog and he saw a cat and tried to go after the cat. The dog is a large animal and had yanked on the leash causing her to strain with her left arm and hand. The leash got caught on her hands and fingers and she was having a lot of pain to the index finger and thumb but has pain from the shoulder down. She is also having some numbness and tingling. She did take Tylenol shortly after the accident. She denies any fall or other injuries. She is approximately 18 weeks . Location Injury Occurred: home Onset: this evening (around 2300) Severity: moderate Pain/Injury Location: left shoulder, left arm, left elbow, left forearm, left wrist, left hand, left thumb, left 2nd finger Method of Injury: twisted (and pulled with large dog on a leash) Modifying Factors: Worse With Movement; Improves With Pain Medication (tylenol was helping some) Allergies and Home Medications Allergies Coded Allergies: Penicillins (Verified Allergy, Severe, 02/16/18) hospitalized as child for allergic reaction. Details unk. Amox causes rash clavulanic acid (Verified Allergy, Mild, HIVES, 01/02/20) amoxicillin (Verified Adverse Reaction, Mild, RASH, 01/02/20) Patient Home Medication List Home Medication List Reviewed: Yes Cyclobenzaprine HCl (Cyclobenzaprine HCl) 10 Mg Tablet, 10 MG PO Q8H PRN for SPASMS Prescribed by: BRETT CAROLINA on 01/05/22 09 Cyclobenzaprine HCl (Cyclobenzaprine HCl) 10 Mg Tablet, 10 MG PO Q8H PRN for SPASMS Prescribed by: PIETER BROWNLEE on 01/27/22 190 Docusate Sodium (Dok) 100 Mg Capsule, 100 MG PO BID PRN for CONSTIPATION-1ST LINE Prescribed by: GABY VASQUEZ on 01/10/20 0737 Hydrocodone/Acetaminophen (Hydrocodone-Acetamin 5-325 mg) 1 Each Tablet, 1-2 TAB PO Q6HR PRN for PAIN-MODERATE (5-7) Prescribed by: GABY VASQUEZ on 01/10/20 0737 Ibuprofen (Ibu) 600 Mg Tablet, 600 MG PO Q6HR Prescribed by: GABY VASQUEZ on 01/10/20 07 Ketorolac Tromethamine (Ketorolac Tromethamine) 10 Mg Tablet, 10 MG PO Q8H Prescribed by: BRETT CAROLINA on 01/05/22 09 Lidocaine (Lidocaine 5% Patch) 5 % Adh..patch, 1 EACH TP Q12H PRN for Neuropathic pain Prescribed by: BRETT CAROLINA on 01/05/22 09 Prednisone (Prednisone) 20 Mg Tab, 40 MG PO DAILY Prescribed by: ROSE HENDRICKSON on 01/30/23 0153 Promethazine HCl (Promethazine Tablet) 25 Mg Tablet, 25 MG PO Q6H PRN for NAUSEA/VOMITING Prescribed by: AISSATOU SOLANO on 12/07/22 1454 Sulfamethoxazole/Trimethoprim (Bactrim Ds Tablet) 1 Each Tablet, 1 EACH PO BID Prescribed by: SAUL GARCIA on 05/02/21 0026 Review of Systems Constitutional: No chills, No fever EENTM: no symptoms reported Respiratory: no symptoms reported Cardiovascular: no symptoms reported Gastrointestinal: no symptoms reported Genitourinary: no symptoms reported : Yes Musculoskeletal: see HPI Skin: change in color (starting to get some bruising to left hand along index finger and thumb) Psychiatric/Neurological: Tingling (in hand and fingers at times) Past Wqirdjk-Wzvygp-Qhuilr Hx Patient Social History Tobacco Use?: Yes Immunizations Up To Date Tetanus Booster (TDap): Unknown PED Vaccines UTD: Yes First/Initial COVID19 Vaccinat: denies Second COVID19 Vaccination James: denies Third COVID19 Vaccination Date: denies Seasonal Allergies Seasonal Allergies: No Past Medical History Surgery/Hospitalization HX: Sciatic nerve pain; x3; Appendectomy; T&A; Rotator Cuff injury Surgeries: Yes Adenoidectomy, Appendectomy, Section, Tonsillectomy Respiratory: No Cardiac: No Neurological: No Female Reproductive Disorders: Denies Sexually Transmitted Disease: No HIV/AIDS: No Genitourinary: No Kidney Stones Gastrointestinal: No Gastroesophageal Reflux Musculoskeletal: No Endocrine: No HEENT: No Loss of Vision: Denies Hearing Impairment: Denies Cancer: No Psychosocial: No Integumentary: No Blood Disorders: No Adverse Reaction/Blood Tranf: No Family Medical History Asthma G8 SISTER Diabetes mellitus 19 FATHER Seizure disorder 19 FATHER G8 SISTER Thyroid disease 19 MOTHER G8 SISTER Physical Exam Vital Signs Vital Signs - First Documented 01/30/23 01:12 Temp 37.0 Pulse 115 Resp 16 B/P (MAP) 137/91 (106) Pulse Ox 100 O2 Delivery Room Air Capillary Refill : Height, Weight, BMI Height: 5'0" Weight: 195lbs. 0oz. 88.446885kr; 37.00 BMI Method:Stated General Appearance: mild distress Cardiovascular: normal peripheral pulses Shoulder: pain (complains of pain with palpation and movement of the left shoulder) Elbow/Forearm: pain (complains of pain with palpation and movement of left forearm/elbow) Hand: ecchymosis (starting to get bruising along left index finger and thumb), limited ROM (pain limits her extension of the left index finger), soft tissue tenderness, stiffness Neurologic/Tendon: normal sensation, normal motor functions, normal tendon functions Neurologic/Psychiatric: alert, oriented x 3 Skin: warm/dry Progress/Results/Core Measures Results/Orders My Orders Orders - ROSE HENDRICKSON MD Ice: Apply To Affected Area (01/30/23 01:17) Hand 3 View Left (01/30/23 01:17) Forearm 2 View Left (01/30/23 01:17) Shoulder 3 View Left (01/30/23 01:17) Prednisone Tablet (Deltasone Tablet) (01/30/23 01:52) Vital Signs/I&O 01/30/23 01:12 Temp 37.0 Pulse 115 Resp 16 B/P (MAP) 137/91 (106) Pulse Ox 100 O2 Delivery Room Air Progress Progress Note #1: Progress Note Potential diagnosis of left hand strain, dislocated finger, finger fracture, elbow strain, rotator cuff injury. Obtain x-rays of the left hand, forearm, shoulder. Give an ice pack to try and help with pain and swelling in her hand. Will review images looking for any evidence of fractures or dislocation. If she does not have any fractures or dislocations will recommend to continue Tylenol, ice, rest and check back with the clinic. If she does have an acute bony injury will discuss with her options of narcotic pain medicine for a day or 2 as needed to help with her severe pain. Progress Note #2: Time: 01:41 Progress Note On my personal interpretation and review of her three-view films of the left shoulder, 2 view films of the left forearm, 3 views of the left hand I did not appreciate any acute fracture or dislocation. Reviewed with patient the x-ray findings and recommend ice, rest, elevation, continue Tylenol. Will discuss option of steroids for inflammation for few days versus narcotic pain medicine if needed for 1 to 2 days. After reviewing results with the patient she opted for short burst of prednisone steroid to try and help with her pain and inflammation since she is and want to avoid NSAIDS. Can continue to use acetaminophen for pain as well as ice and elevation. try ben taping the index and middle fingers together for support. Note for work to limit use of left hand for 1 week and if still having pain/problems check with clinic. Give prednisone 40 mg po x 1 here and sent script for 3 more days of 40 mg daily. Advised if not improving then PCP or OB may need to order MRI to look at nerves of left arm/hand. Diagnostic Imaging Diagonstic Imaging: Xray Plain Films/CT/US/NM/MRI: forearm Reviewed: Reviewed by Me Diagonstic Imaging: Xray Plain Films/CT/US/NM/MRI: hand Reviewed: Reviewed by Me Diagonstic Imaging: Xray Plain Films/CT/US/NM/MRI: other (shoulder) Reviewed: Reviewed by Me Departure Impression Primary Impression: Contusion of left hand including fingers Qualified Codes: S60.222A - Contusion of left hand, initial encounter; S60.00XA - Contusion of unspecified finger without damage to nail, initial encounter Additional Impressions: Strain of left hand and finger Left shoulder pain Qualified Codes: M25.512 - Pain in left shoulder Strain of other muscles, fascia and tendons at shoulder and upper arm level, left arm, initial encounter Incidental Disposition: HOME, SELF-CARE Condition: Stable Departure-Patient Inst. Decision time for Depature: 01:52 Referrals: GABRIEL LARIOS MD (PCP) Primary Care Physician NO,LOCAL PHYSICIAN (Family) Primary Care Physician Patient Instructions: Shoulder Pain ED, Muscle Strain ED, Common Finger Injuries ED Add. Discharge Instructions: Use ice 15 to 20 minutes every few hours as needed for pain and swelling. Try to keep your hand and left arm elevated above heart level to help with pain, swelling, bruising. Continue with the acetaminophen 650 mg every 4-6 hours as needed for pain. Check back with your primary care or OB provider if you continue to have pain in your left arm and tingling in your hand and fingers. Scripts Prednisone (Prednisone) 20 Mg Tab 40 MG PO DAILY for hand pain/strain for 3 Days, #6 TAB 0 Refills Prov: ROSE HENDRICKSON MD 01/30/23 Work/School Note: Work Release Form Date Seen in the Emergency Department: Jan 30, 2023 Return to Work: Jan 30, 2023 Restrictions: No Sports-Until Released Other Restrictions Listed Below: Limit use of left hand x 1 week. If not better see clinic ROSE HENDRICKSON MD Jan 30, 2023 01:24
[2023-01-30] MEDS ORDERED: predniSONE 20 MG TAB PO STA (01:52)
[2023-01-30] MEDS ORDERED: PRD20T PO (01:53)
[2023-01-30 02:04] VITALS: BP 137/91
--- NOTE | 2023-01-30 07:32 | Diagnostic Imaging Report ---
EXAMINATION: Left hand radiograph EXAM DATE: 01/30/2023 1:37 AM COMPARISON: None available. HISTORY: Left hand pain TECHNIQUE: 3 views FINDINGS: There is no acute fracture, dislocation, or destructive osseous process. The joint spaces are normal. The soft tissues are normal. IMPRESSION: 1. No acute osseous abnormality. Dictated by: Dictated on workstation # [id number]
--- NOTE | 2023-01-30 07:32 | Diagnostic Imaging Report ---
EXAMINATION: Left forearm radiograph EXAM DATE: 01/30/2023 1:37 AM COMPARISON: None available. HISTORY: Left arm pain TECHNIQUE: 1 views FINDINGS: There is no acute fracture, dislocation, or destructive osseous process. The joint spaces are normal. The soft tissues are normal. IMPRESSION: 1. No acute osseous abnormality seen on this single view of the left forearm. Dictated by: Dictated on workstation # [id number]
--- NOTE | 2023-01-30 07:35 | Diagnostic Imaging Report ---
EXAMINATION: Left shoulder radiograph EXAM DATE: 01/30/2023 1:37 AM COMPARISON: None available. HISTORY: Left shoulder pain TECHNIQUE: 3 views FINDINGS: There is no acute fracture, dislocation, or destructive osseous process. The joint spaces are normal. The soft tissues are normal. IMPRESSION: 1. No acute osseous abnormality. Dictated by: Dictated on workstation # [id number]
== END 2023-01-30 02:04 | disposition home or self-care (01) ==
LOC: EDUNIT# 01:07 → ER FS 01:09
DX: O9A.212 Injury, poisoning and certain other consequences of external causes complicating pregnancy, second trimester (principal); S46.812A Strain of other muscles, fascia and tendons at shoulder and upper arm level, left arm, initial encounter; S66.311A Strain of extensor muscle, fascia and tendon of left index finger at wrist and hand level, initial encounter; Z28.310 Unvaccinated for COVID-19; Z3A.18 18 weeks gestation of pregnancy; X50.1XXA Overexertion from prolonged static or awkward postures, initial encounter
CPT/HCPCS: 73030; 73130

== ENCOUNTER 2023-02-23 23:43 | Emergency (ER) | payer MEDICAID ==
[~2023-02-23] VITALS: Ht 152 cm; Wt 85.3 kg
[~2023-02-23 23:43] MED LIST changes: +ONDA4TAB11 PO; +PRD20T PO
[2023-02-23 23:51] VITALS: BP 143/82
--- NOTE | 2023-02-23 23:56 | ED General ---
General Chief Complaint: Dizziness/Syncope Stated Complaint: SYNCOPE,HIT HEAD History of Present Illness Date Seen by Provider: Feb 23, 2023 Time Seen by Provider: 23:56 Initial Comments 28-year-old female presents with what she believes may be a syncopal event after fall. She thinks she hit her head maybe on the toilet when she had a brief syncopal event. She is approximately 22 weeks and reports that she has been "sick and "throughout her whole . That she got up to go the bathroom because she was nauseous and she just remembers waking up on the floor. She is not sure if she hit her head but reports that she got discomfort in it. Allergies and Home Medications Allergies Coded Allergies: Penicillins (Verified Allergy, Severe, 02/16/18) hospitalized as child for allergic reaction. Details unk. Amox causes rash clavulanic acid (Verified Allergy, Mild, HIVES, 01/02/20) amoxicillin (Verified Adverse Reaction, Mild, RASH, 01/02/20) Patient Home Medication List Home Medication List Reviewed: Yes Cyclobenzaprine HCl (Cyclobenzaprine HCl) 10 Mg Tablet, 10 MG PO Q8H PRN for SPASMS Prescribed by: BRETT CAROLINA on 01/05/22 0928 Cyclobenzaprine HCl (Cyclobenzaprine HCl) 10 Mg Tablet, 10 MG PO Q8H PRN for SPASMS Prescribed by: PIETER BROWNLEE on 01/27/22 190 Cyclobenzaprine HCl (Cyclobenzaprine HCl) 10 Mg Tablet, 10 MG PO Q8H PRN for SPASMS Prescribed by: ROSE HENDRICKSON on 02/10/23 0014 Docusate Sodium (Dok) 100 Mg Capsule, 100 MG PO BID PRN for CONSTIPATION-1ST LINE Prescribed by: GABY VASQUEZ on 01/10/20 0737 Hydrocodone/Acetaminophen (Hydrocodone-Acetamin 5-325 mg) 1 Each Tablet, 1-2 TAB PO Q6HR PRN for PAIN-MODERATE (5-7) Prescribed by: GABY VASQUEZ on 01/10/20 07 Ibuprofen (Ibu) 600 Mg Tablet, 600 MG PO Q6HR Prescribed by: GABY VASQUEZ on 01/10/20 07 Ketorolac Tromethamine (Ketorolac Tromethamine) 10 Mg Tablet, 10 MG PO Q8H Prescribed by: BRETT CAROLINA on 01/05/22927 Lidocaine (Lidocaine 5% Patch) 5 % Adh..patch, 1 EACH TP Q12H PRN for Neuropathic pain Prescribed by: BRETT CAROLINA on 01/05/22927 Ondansetron (Ondansetron Odt) 4 Mg Tab.rapdis, 4 MG PO Q6H PRN for NAUSEA/VOMITING Prescribed by: ROSE HENDRICKSON on 02/10/23 0022 Prednisone (Prednisone) 20 Mg Tab, 40 MG PO DAILY Prescribed by: ROSE HENDRICKSON on 01/30/23 0153 Promethazine HCl (Promethazine Tablet) 25 Mg Tablet, 25 MG PO Q6H PRN for NAUSEA/VOMITING Prescribed by: AISSATOU SOLANO on 12/07/22 1454 Sulfamethoxazole/Trimethoprim (Bactrim Ds Tablet) 1 Each Tablet, 1 EACH PO BID Prescribed by: SAUL GARCIA on 05/02/21 0026 Review of Systems Review of Systems Constitutional: see HPI EENTM: see HPI Respiratory: no symptoms reported Cardiovascular: no symptoms reported Gastrointestinal: nausea Genitourinary: no symptoms reported : Yes Musculoskeletal: no symptoms reported Skin: no symptoms reported Psychiatric/Neurological: See HPI Past Mnavour-Ksrinm-Yxxwgi Hx Immunizations Up To Date Tetanus Booster (TDap): Unknown PED Vaccines UTD: Yes First/Initial COVID19 Vaccinat: denies Second COVID19 Vaccination James: denies Third COVID19 Vaccination Date: denies Seasonal Allergies Seasonal Allergies: No Past Medical History Surgery/Hospitalization HX: Sciatic nerve pain; x3; Appendectomy; T&A; Rotator Cuff injury Surgeries: Yes Adenoidectomy, Appendectomy, Section, Tonsillectomy Respiratory: No Cardiac: No Neurological: No Female Reproductive Disorders: Denies Sexually Transmitted Disease: No HIV/AIDS: No Genitourinary: No Kidney Stones Gastrointestinal: No Gastroesophageal Reflux Musculoskeletal: No Endocrine: No HEENT: No Loss of Vision: Denies Hearing Impairment: Denies Cancer: No Psychosocial: No Integumentary: No Blood Disorders: No Adverse Reaction/Blood Tranf: No Family Medical History Asthma G8 SISTER Diabetes mellitus 19 FATHER Seizure disorder 19 FATHER G8 SISTER Thyroid disease 19 MOTHER G8 SISTER Physical Exam Vital Signs Vital Signs - First Documented 02/23/23 23:51 Temp 36.9 Pulse 121 Resp 16 B/P (MAP) 143/82 (102) Pulse Ox 100 O2 Delivery Room Air Capillary Refill : Height, Weight, BMI Height: 5'0" Weight: 195lbs. 0oz. 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 Norm as Tested Skin: Normal Color, Warm/Dry Progress/Results/Core Measures Suspected Sepsis SIRS Temperature: Pulse: Respiratory Rate: Laboratory Tests 02/24/23 00:07: White Blood Count 11.8H Blood Pressure / Mean: Laboratory Tests 02/24/23 00:07: Creatinine 0.46L, Platelet Count 334, Total Bilirubin 0.2 Results/Orders Lab Results Laboratory Tests Test 02/23/23 23:50 02/24/23 00:07 Range/Units Urine Color YELLOW Urine Clarity CLEAR Urine pH 6.5 5-9 Urine Specific [place] 1.020 1.016-1.022 Urine Protein NEGATIVE NEGATIVE Urine Glucose (UA) NEGATIVE NEGATIVE Urine Ketones NEGATIVE NEGATIVE Urine Nitrite NEGATIVE NEGATIVE Urine Bilirubin NEGATIVE NEGATIVE Urine Urobilinogen 1.0 < = 1.0 MG/DL Urine Leukocyte Esterase NEGATIVE NEGATIVE Urine RBC (Auto) NEGATIVE NEGATIVE Urine RBC 0-2 /HPF Urine WBC 2-5 /HPF Urine Squamous Epithelial Cells 5-10 /HPF Urine Crystals NONE /LPF Urine Bacteria TRACE /HPF Urine Casts NONE /LPF Urine Mucus LARGE H /LPF Urine Culture Indicated NO White Blood Count 11.8 H 4.3-11.0 10^3/uL Red Blood Count 4.65 3.80-5.11 10^6/uL Hemoglobin 10.3 L 11.5-16.0 g/dL Hematocrit 33 L 35-52 % Mean Corpuscular Volume 70 L 80-99 fL Mean Corpuscular Hemoglobin 22 L 25-34 pg Mean Corpuscular Hemoglobin Concent 32 32-36 g/dL Red Cell Distribution Width 15.5 H 10.0-14.5 % Platelet Count 334 130-400 10^3/uL Mean Platelet Volume 9.3 9.0-12.2 fL Immature Granulocyte % (Auto) 0 % Neutrophils (%) (Auto) 79 H 42-75 % Lymphocytes (%) (Auto) 15 12-44 % Monocytes (%) (Auto) 4 0-12 % Eosinophils (%) (Auto) 1 0-10 % Basophils (%) (Auto) 0 0-10 % Neutrophils # (Auto) 9.4 H 1.8-7.8 10^3/uL Lymphocytes # (Auto) 1.8 1.0-4.0 10^3/uL Monocytes # (Auto) 0.5 0.0-1.0 10^3/uL Eosinophils # (Auto) 0.1 0.0-0.3 10^3/uL Basophils # (Auto) 0.0 0.0-0.1 10^3/uL Immature Granulocyte # (Auto) 0.0 0.0-0.1 10^3/uL Sodium Level 135 135-145 MMOL/L Potassium Level 3.2 L 3.6-5.0 MMOL/L Chloride Level 104 98-107 MMOL/L Carbon Dioxide Level 19 L 21-32 MMOL/L Anion Gap 12 5-14 MMOL/L Blood Urea Nitrogen 4 L 7-18 MG/DL Creatinine 0.46 L 0.60-1.30 MG/DL Estimat Glomerular Filtration Rate 135 BUN/Creatinine Ratio 9 Glucose Level 128 H 70-105 MG/DL Calcium Level 8.8 8.5-10.1 MG/DL Corrected Calcium 9.3 8.5-10.1 MG/DL Total Bilirubin 0.2 0.1-1.0 MG/DL Aspartate Amino Transf (AST/SGOT) 11 5-34 U/L Alanine Aminotransferase (ALT/SGPT) 6 0-55 U/L Alkaline Phosphatase 76 40-136 U/L Total Protein 6.2 L 6.4-8.2 GM/DL Albumin 3.4 3.2-4.5 GM/DL My Orders Orders - GARCIA,SAUL L DO Cbc With Automated Diff (02/23/23 23:58) Comprehensive Metabolic Panel (02/23/23 23:58) Ua Culture If Indicated (02/23/23 23:58) Ondansetron Injection (Zofran Injectio (02/24/23 00:00) Ns Iv 1000 Ml (Sodium Chloride 0.9%) (02/23/23 23:58) Ct Head Wo (02/24/23 00:11) Medications Given in ED Current Medications Medications Dose Ordered Sig/Eleni Route Start Time Stop Time Status Last Admin Dose Admin Ondansetron HCl 4 mg ONCE ONCE IVP 02/24/23 00:00 02/24/23 00:01 DC 02/24/23 00:25 4 MG Vital Signs/I&O 02/23/23 02/24/23 23:51 00:10 Temp 36.9 Pulse 121 Resp 16 B/P (MAP) 143/82 (102) 120/84 (96) Pulse Ox 100 O2 Delivery Room Air Capillary Refill : Progress Note : Progress Note Patient's diagnostic studies were ordered reviewed and interpreted by me. She has no significant acute concerning findings. She does have findings consistent with her on her labs. Urinalysis is negative. CT head is negative. I suspect her syncope is related to a vasovagal . She continues to have nausea but this has been present throughout her whole . She should follow-up with her primary care provider/OB next week for continued outpatient evaluation. She is stable and discharged home Diagnostic Imaging Diagonstic Imaging: CT Plain Films/CT/US/NM/MRI: head Comments no acute findings Reviewed: Reviewed [place] Hawk Study, Reviewed by Me Departure Impression Primary Impression: Syncope Qualified Codes: R55 - Syncope and collapse Additional Impressions: Nausea and vomiting during prior to 22 weeks gestation Mild closed head injury Qualified Codes: S09.90XA - Unspecified injury of head, initial encounter Disposition: HOME, SELF-CARE Condition: Stable Departure-Patient Inst. Referrals: GABRIEL LARIOS MD (PCP/Family) Primary Care Physician Patient Instructions: Minor Head Injury, Adult ED, Minor Head Injury (DC) Add. Discharge Instructions: Be sure to drink plenty of fluids. When you first stand up please give yourself a second prior to ambulating. If you continue to get faint feeling follow-up with your primary care provider and/OB for further outpatient evaluation. Tylenol sparingly as needed for discomfort. All discharge instructions reviewed with patient and/or family. Voiced understanding. SAUL GARCIA DO Feb 23, 2023 23:56
[2023-02-23] MEDS ORDERED: NS IV 1000 ML 1,000 ML IV STA (23:58)
[2023-02-24] MEDS ORDERED: ONDANSETRON 4 MG/2 ML (SDV) Z0FRAN IVP ONE
[2023-02-24 00:13] LABS: BASOPHILS % (AUTO) 0 % (0-10); EOSINOPHILS # (AUTO) 0.1 10^3/uL (0.0-0.3); EOSINOPHILS % (AUTO) 1 % (0-10); HEMATOCRIT 33 % (35-52); HEMOGLOBIN 10.3 g/dL (11.5-16.0); LYMPHOCYTES # (AUTO) 1.8 10^3/uL (1.0-4.0); LYMPHOCYTES % (AUTO) 15 % (12-44); MEAN CORPUSCULAR HEMOGLOBIN 22 pg (25-34); MEAN CORPUSCULAR HGB CONC 32 g/dL (32-36); MEAN CORPUSCULAR VOLUME 70 fL (80-99); MEAN PLATELET VOLUME 9.3 fL (9.0-12.2); MONOCYTES # (AUTO) 0.5 10^3/uL (0.0-1.0); MONOCYTES % (AUTO) 4 % (0-12); NEUTROPHILS # (AUTO) 9.4 10^3/uL (1.8-7.8); NEUTROPHILS % (AUTO) 79 % (42-75); PLATELET COUNT 334 10^3/uL (130-400); WHITE BLOOD COUNT 11.8 10^3/uL (4.3-11.0)
[2023-02-24 00:14] LABS: BILIRUBIN,URINE NEGATIVE (NEGATIVE); CLARITY,URINE CLEAR; COLOR,URINE YELLOW; GLUCOSE, URINE (UA) NEGATIVE (NEGATIVE); KETONES,URINE NEGATIVE (NEGATIVE); LEUKOCYTE ESTERASE ,URINE NEGATIVE (NEGATIVE); NITRITE,URINE NEGATIVE (NEGATIVE); PH,URINE 6.5 (5-9); PROTEIN,URINE NEGATIVE (NEGATIVE)
[2023-02-24 00:18] LABS: BACTERIA,URINE TRACE /HPF; RBC,URINE 0-2 /HPF
[2023-02-24 00:36] LABS: POTASSIUM 3.2 MMOL/L (3.6-5.0)
[2023-02-24 00:37] LABS: ALBUMIN 3.4 GM/DL (3.2-4.5); BILIRUBIN,TOTAL 0.2 MG/DL (0.1-1.0); CALCIUM 8.8 MG/DL (8.5-10.1); CREATININE SERUM 0.46 MG/DL (0.60-1.30); TOTAL PROTEIN 6.2 GM/DL (6.4-8.2)
--- NOTE | 2023-02-24 04:21 | Diagnostic Imaging Report ---
CT HEAD WO Date: 02/24/2023 12:33 AM Clinical Indication: Headache after trauma Comparison: None. Technique: 5 mm axial tomographic images were obtained of the head without contrast. These were viewed on brain and bone windows. One or more of the following dose reduction techniques were utilized: Automated exposure control (AEC), Adjustment of mA and/or kV according to patient size, Use of iterative reconstruction technique such as ASiR, CT scan done according to ALARA and image gently/image wisely Findings: The brain parenchyma is normal in attenuation. No intra- or extra-axial mass or fluid collection. No acute hemorrhage. The ventricles are normal in size, shape, and morphology. The falcon-white matter junction is normal. The subarachnoid cisterns are patent. The visualized paranasal sinuses are normal. The visualized portions of the orbits and globes are normal. The mastoid air cells are clear. The production or plant engineer topogram shows no lytic lesion or fracture. Impression: No acute intracranial process. Dictated by: Dictated on workstation # [id number]
== END 2023-02-24 01:25 | disposition home or self-care (01) ==
LOC: EDUNIT# 23:43 → ER FS 23:44
DX: O9A.212 Injury, poisoning and certain other consequences of external causes complicating pregnancy, second trimester (principal); S09.90XA Unspecified injury of head, initial encounter; O99.891 Other specified diseases and conditions complicating pregnancy; R55 Syncope and collapse; O21.2 Late vomiting of pregnancy; Z3A.22 22 weeks gestation of pregnancy; W18.30XA Fall on same level, unspecified, initial encounter; Y92.002 Bathroom of unspecified non-institutional (private) residence as the place of occurrence of the external cause
CPT/HCPCS: 36415; 70450; 80053; 81000; 85025; 96361; 96374

== ENCOUNTER 2023-03-01 22:40 | Emergency (ER) | payer MEDICAID ==
[2023-03-01 22:58] LABS: BILIRUBIN,URINE NEGATIVE (NEGATIVE); CLARITY,URINE SL CLOUDY; COLOR,URINE YELLOW; GLUCOSE, URINE (UA) NEGATIVE (NEGATIVE); KETONES,URINE 2+ (NEGATIVE); LEUKOCYTE ESTERASE ,URINE NEGATIVE (NEGATIVE); NITRITE,URINE NEGATIVE (NEGATIVE); PROTEIN,URINE NEGATIVE (NEGATIVE)
[2023-03-01 23:00] LABS: BASOPHILS % (AUTO) 0 % (0-10); EOSINOPHILS % (AUTO) 0 % (0-10); HEMATOCRIT 33 % (35-52); HEMOGLOBIN 10.7 g/dL (11.5-16.0); LYMPHOCYTES # (AUTO) 1.8 10^3/uL (1.0-4.0); LYMPHOCYTES % (AUTO) 13 % (12-44); MEAN CORPUSCULAR HEMOGLOBIN 22 pg (25-34); MEAN CORPUSCULAR HGB CONC 32 g/dL (32-36); MEAN CORPUSCULAR VOLUME 69 fL (80-99); MEAN PLATELET VOLUME 8.9 fL (9.0-12.2); MONOCYTES # (AUTO) 0.7 10^3/uL (0.0-1.0); MONOCYTES % (AUTO) 5 % (0-12); NEUTROPHILS # (AUTO) 11.1 10^3/uL (1.8-7.8); NEUTROPHILS % (AUTO) 81 % (42-75); PLATELET COUNT 332 10^3/uL (130-400); WHITE BLOOD COUNT 13.6 10^3/uL (4.3-11.0)
[2023-03-01] MEDS ORDERED: NS IV 1000 ML 1,000 ML IV SCH (23:00)
[2023-03-01 23:06] LABS: BACTERIA,URINE FEW /HPF
[2023-03-01 23:14] LABS: POTASSIUM 3.6 MMOL/L (3.6-5.0)
[2023-03-01] MEDS ORDERED: ONDANSETRON 4 MG/2 ML (SDV) Z0FRAN IVP ONE (23:15)
[2023-03-01] MEDS ORDERED: diphenhydrAMINE INJ 50 MG/ML VIAL IVP ONE (23:15)
[2023-03-01 23:19] LABS: BILIRUBIN,TOTAL 0.2 MG/DL (0.1-1.0); CALCIUM 8.7 MG/DL (8.5-10.1); CREATININE SERUM 0.44 MG/DL (0.60-1.30); MAGNESIUM 1.6 MG/DL (1.6-2.4)
--- NOTE | 2023-03-01 23:19 | ED Abdominal Pain ---
General Chief Complaint: Abdominal/GI Problems Stated Complaint: ABD/BACK PAIN/NAUSEA/VOMITING Nursing Triage Note: Pt complaining of right abd pain with right flank pain. Pt is 23 weeks . Pt also states she has been vomiting a couple times every hour since this morning History of Present Illness Date Seen by Provider: Mar 01, 2023 Time Seen by Provider: 22:45 Initial Comments 28-year-old female who is a A4L3, with CHRISTIANO of 06/27/23 and is 23 weeks , is here with complaints of right flank pain that is radiating to her right groin which has been going on for the past few days and has been worsening today. Patient states that the pain is constant. Patient has issues with hyperemesis during all her pregnancies and also with this . She is on Zofran, promethazine for vomiting and nausea and it does not seem to be helping. Denies dysuria, abdominal pain, diarrhea, chest pain, shortness of breath, fever and chills. Allergies and Home Medications Allergies Coded Allergies: Penicillins (Verified Allergy, Severe, 02/16/18) hospitalized as child for allergic reaction. Details unk. Amox causes rash clavulanic acid (Verified Allergy, Mild, HIVES, 01/02/20) amoxicillin (Verified Adverse Reaction, Mild, RASH, 01/02/20) Patient Home Medication List Home Medication List Reviewed: Yes Cyclobenzaprine HCl (Cyclobenzaprine HCl) 10 Mg Tablet, 10 MG PO Q8H PRN for SPASMS Prescribed by: BRETT CAROLINA on 01/05/22 0928 Cyclobenzaprine HCl (Cyclobenzaprine HCl) 10 Mg Tablet, 10 MG PO Q8H PRN for SPASMS Prescribed by: PIETER BROWNLEE on 01/27/22 1903 Cyclobenzaprine HCl (Cyclobenzaprine HCl) 10 Mg Tablet, 10 MG PO Q8H PRN for SPASMS Prescribed by: ROSE HENDRICKSON on 02/10/23 0014 Docusate Sodium (Dok) 100 Mg Capsule, 100 MG PO BID PRN for CONSTIPATION-1ST LINE Prescribed by: GABY VASQUEZ on 01/10/20 0737 Hydrocodone/Acetaminophen (Hydrocodone-Acetamin 5-325 mg) 1 Each Tablet, 1-2 TAB PO Q6HR PRN for PAIN-MODERATE (5-7) Prescribed by: GABY VASQUEZ on 01/10/2037 Ibuprofen (Ibu) 600 Mg Tablet, 600 MG PO Q6HR Prescribed by: GABY VASQUEZ on 01/10/20736 Ketorolac Tromethamine (Ketorolac Tromethamine) 10 Mg Tablet, 10 MG PO Q8H Prescribed by: BRETT CAROLINA on 01/05/22 09 Lidocaine (Lidocaine 5% Patch) 5 % Adh..patch, 1 EACH TP Q12H PRN for Neur opathic pain Prescribed by: BRETT CAROLINA on 01/05/22 09 Ondansetron (Ondansetron Odt) 4 Mg Tab.rapdis, 4 MG PO Q6H PRN for NAUSEA/VOMITING Prescribed by: ROSE HENDRICKSON on 02/10/23 002 Prednisone (Prednisone) 20 Mg Tab, 40 MG PO DAILY Prescribed by: ROSE HENDRICKSON on 01/30/23 0153 Promethazine HCl (Promethazine Tablet) 25 Mg Tablet, 25 MG PO Q6H PRN for NAUSEA/VOMITING Prescribed by: AISSATOU SOLANO on 12/07/22 1454 Sulfamethoxazole/Trimethoprim (Bactrim Ds Tablet) 1 Each Tablet, 1 EACH PO BID Prescribed by: SAUL GARCIA on 05/02/21 0026 Review of Systems Review of Systems Constitutional: no symptoms reported EENTM: No Symptoms Reported Respiratory: No Symptoms Reported Cardiovascular: No Symptoms Reported Gastrointestinal: No Symptoms Reported Genitourinary: See HPI, Flank Pain Musculoskeletal: no symptoms reported Skin: no symptoms reported Psychiatric/Neurological: No Symptoms Reported Endocrine: No Symptoms Reported Hematologic/Lymphatic: No Symptoms Reported Past Jlrutrw-Tethlf-Cwegnr Hx Patient Social History Tobacco Use?: No Substance use?: No Alcohol Use?: No Pt feels they are or have been: No Immunizations Up To Date Tetanus Booster (TDap): Unknown PED Vaccines UTD: Yes First/Initial COVID19 Vaccinat: unk Second COVID19 Vaccination James: denies Third COVID19 Vaccination Date: denies Seasonal Allergies Seasonal Allergies: No Past Medical History Surgery/Hospitalization HX: Sciatic nerve pain; x3; Appendectomy; T&A; Rotator Cuff injury Surgeries: Yes Adenoidectomy, Appendectomy, Section, Tonsillectomy Respiratory: No Cardiac: No Neurological: No Female Reproductive Disorders: Denies Sexually Transmitted Disease: No HIV/AIDS: No Genitourinary: No Kidney Stones Gastrointestinal: No Gastroesophageal Reflux Musculoskeletal: No Endocrine: No HEENT: No Loss of Vision: Denies Hearing Impairment: Denies Cancer: No Psychosocial: No Integumentary: No Blood Disorders: No Adverse Reaction/Blood Tranf: No Family Medical History Asthma G8 SISTER Diabetes mellitus 19 FATHER Seizure disorder 19 FATHER G8 SISTER Thyroid disease 19 MOTHER G8 SISTER Physical Exam Vital Signs Vital Signs - First Documented 03/01/23 22:44 Pulse 119 Resp 18 B/P (MAP) 141/67 (91) Pulse Ox 97 O2 Delivery Room Air Capillary Refill : Less Than 3 Seconds Height/Weight/BMI Height: 5'0" Weight: 195lbs. 0oz. 88.938274lc; 36.00 BMI Method:Stated General Appearance: WD/WN, no apparent distress HEENT: PERRL/EOMI Neck: non-tender, full range of motion, supple Respiratory: chest non-tender, lungs clear, normal breath sounds, no respiratory distress Cardiovascular: regular rate, rhythm Gastrointestinal: normal bowel sounds, non tender, soft Extremities: normal range of motion Back: no vertebral tenderness, CVA tenderness (R) Neurologic/Psychiatric: alert, normal mood/affect, oriented x 3 Skin: normal color Lymphatic: no adenopathy Progress/Results/Core Measures Results/Orders Lab Results Laboratory Tests Test 03/01/23 22:50 03/01/23 22:55 Range/Units Urine Color YELLOW Urine Clarity SL CLOUDY Urine pH 6.0 5-9 Urine Specific [place] >=1.030 1.016-1.022 Urine Protein NEGATIVE NEGATIVE Urine Glucose (UA) NEGATIVE NEGATIVE Urine Ketones 2+ H NEGATIVE Urine Nitrite NEGATIVE NEGATIVE Urine Bilirubin NEGATIVE NEGATIVE Urine Urobilinogen 0.2 < = 1.0 MG/DL Urine Leukocyte Esterase NEGATIVE NEGATIVE Urine RBC (Auto) NEGATIVE NEGATIVE Urine RBC NONE /HPF Urine WBC 2-5 /HPF Urine Squamous Epithelial Cells 10-25 H /HPF Urine Crystals NONE /LPF Urine Bacteria FEW H /HPF Urine Casts NONE /LPF Urine Mucus LARGE H /LPF Urine Culture Indicated NO White Blood Count 13.6 H 4.3-11.0 10^3/uL Red Blood Count 4.85 3.80-5.11 10^6/uL Hemoglobin 10.7 L 11.5-16.0 g/dL Hematocrit 33 L 35-52 % Mean Corpuscular Volume 69 L 80-99 fL Mean Corpuscular Hemoglobin 22 L 25-34 pg Mean Corpuscular Hemoglobin Concent 32 32-36 g/dL Red Cell Distribution Width 15.5 H 10.0-14.5 % Platelet Count 332 130-400 10^3/uL Mean Platelet Volume 8.9 L 9.0-12.2 fL Immature Granulocyte % (Auto) 0 % Neutrophils (%) (Auto) 81 H 42-75 % Lymphocytes (%) (Auto) 13 12-44 % Monocytes (%) (Auto) 5 0-12 % Eosinophils (%) (Auto) 0 0-10 % Basophils (%) (Auto) 0 0-10 % Neutrophils # (Auto) 11.1 H 1.8-7.8 10^3/uL Lymphocytes # (Auto) 1.8 1.0-4.0 10^3/uL Monocytes # (Auto) 0.7 0.0-1.0 10^3/uL Eosinophils # (Auto) 0.0 0.0-0.3 10^3/uL Basophils # (Auto) 0.0 0.0-0.1 10^3/uL Immature Granulocyte # (Auto) 0.1 0.0-0.1 10^3/uL Sodium Level 137 135-145 MMOL/L Potassium Level 3.6 3.6-5.0 MMOL/L Chloride Level 103 98-107 MMOL/L Carbon Dioxide Level 18 L 21-32 MMOL/L Anion Gap 16 H 5-14 MMOL/L Blood Urea Nitrogen 4 L 7-18 MG/DL Creatinine 0.44 L 0.60-1.30 MG/DL Estimat Glomerular Filtration Rate 137 BUN/Creatinine Ratio 9 Glucose Level 104 70-105 MG/DL Calcium Level 8.7 8.5-10.1 MG/DL Corrected Calcium 9.2 8.5-10.1 MG/DL Magnesium Level 1.6 1.6-2.4 MG/DL Total Bilirubin 0.2 0.1-1.0 MG/DL Aspartate Amino Transf (AST/SGOT) 10 5-34 U/L Alanine Aminotransferase (ALT/SGPT) 6 0-55 U/L Alkaline Phosphatase 80 40-136 U/L Total Protein 7.1 6.4-8.2 GM/DL Albumin 3.4 3.2-4.5 GM/DL My Orders Orders - BRAYDEN BAUTISTA MD Ua Culture If Indicated (03/01/23 22:51) Cbc With Automated Diff (03/01/23 22:52) Comprehensive Metabolic Panel (03/01/23 22:52) Magnesium (03/01/23 22:52) Ed Iv/Invasive Line Start (03/01/23 22:59) Ed Iv/Invasive Line Start (03/01/23 22:57) Ns Iv 1000 Ml (Sodium Chloride 0.9%) (03/01/23 23:00) Ondansetron Injection (Zofran Injectio (03/01/23 23:15) Diphenhydramine Injection (Diphenhydram (03/01/23 23:15) Medications Given in ED Current Medications Medications Dose Ordered Sig/Elnei Route Start Time Stop Time Status Last Admin Dose Admin Diphenhydramine HCl 25 mg ONCE ONCE IVP 03/01/23 23:15 03/01/23 23:16 DC 03/01/23 23:13 25 MG Ondansetron HCl 4 mg ONCE ONCE IVP 03/01/23 23:15 03/01/23 23:16 DC 03/01/23 23:13 4 MG Vital Signs/I&O 03/01/23 22:44 Pulse 119 Resp 18 B/P (MAP) 141/67 (91) Pulse Ox 97 O2 Delivery Room Air Blood Pressure Mean: 91 Progress Progress Note : Progress Note 1.RIGHT FLANK PAIN WITH MILD DEHYDRATION: - CBC, mild elevation of WBC at 13.6 - CMP: unremarkable - UA: negative for infection but shows some ketones - NS IVF bolus/ Zofran 4mg iv/ Benadryl 25mg iv STAT - Tylenol given for pain in the ER. - Mild improvement with medications - Informed pt on newer studies done on Tylenol use in showed 20% higher risk of autism and a 30% higher risk of ADHD for children who had prolonged exposure to acetaminophen during development. Short term use, of less than 8 days, or single use does not produce these results. Pt is informed and agrees to have Tylenol at this time. - Ultrasound is not available in [place] and it is also not available at [facility] during the night. I will give pt an out-patient order for a renal ultrasound for tomorrow. - Advised adequate hydration - Follow up with OB DIANN. -The patient was seen in the ED, and treated appropriately to presentation at a specific point in time. Patient is informed that there is a possibility that disease and illness can evolve and change in acuity rapidly or slowly after patient is discharged from the ER. Precautionary advice given to the patient for immediate return to ER if symptoms worsen or do not resolve, and to seek emergency care sooner rather than later. Pt also advised on the importance of PCP follow up and compliance with management and follow up plan with PCP and/or specialist, as this is part of the management plan. Pt verbally expressed understanding. Departure Impression Primary Impression: Right flank pain Additional Impression: Nausea/vomiting in Disposition: 01 HOME, SELF-CARE Condition: Stable Departure-Patient Inst. Referrals: GABRIEL LARIOS MD (PCP/Family) Primary Care Physician Patient Instructions: Nausea and Vomiting of , Morning Sickness (DC), Flank Pain ED Add. Discharge Instructions: - Ultrasound is not available in [place] and it is also not available at [facility] during the night, so out-patient order for a renal ultrasound for tomorrow. - Advised adequate hydration - Follow up with OB DIANN. All discharge instructions reviewed with patient and/or family. Voiced understanding. BRAYDEN BAUTISTA MD Mar 01, 2023 23:19
[2023-03-01 23:20] LABS: ALBUMIN 3.4 GM/DL (3.2-4.5); TOTAL PROTEIN 7.1 GM/DL (6.4-8.2)
[2023-03-02 00:15] VITALS: BP 131/86
[2023-03-02] MEDS ORDERED: ACETAMINOPHEN 500 MG TABLET PO ONE (00:15)
== END 2023-03-02 00:16 | disposition home or self-care (01) ==
LOC: EDUNIT# 22:40 → ER FS 22:42
DX: O21.2 Late vomiting of pregnancy (principal); O26.892 Other specified pregnancy related conditions, second trimester; R10.9 Unspecified abdominal pain; Z3A.23 23 weeks gestation of pregnancy; Z28.310 Unvaccinated for COVID-19
CPT/HCPCS: 36415; 80053; 81000; 83735; 85025

== ENCOUNTER 2023-04-05 13:29 | Emergency (ER) | payer MEDICAID ==
[~2023-04-05] VITALS: Ht 152 cm; Wt 88.0 kg
[2023-04-05] MEDS ORDERED: RT-ALBUTEROL HFA 8.5 GM INHALER IH ONE ×2 (14:19→18:00)
--- NOTE | 2023-04-05 14:25 | ED General ---
General Chief Complaint: Cough/Cold/Flu Symptoms Stated Complaint: COUGH; SOB Nursing Triage Note: Patient has presented to ER with cc of cough and congestion for the last 2 days. She is 28 weeks and she did see her OB doctor yesterday for the same symptoms and was started on zyrtec and flonase, but she is just not better today and came to ER for evaluation. Source of Information: Patient Exam Limitations: No Limitations History of Present Illness Date Seen by Provider: Apr 05, 2023 Time Seen by Provider: 13:40 Initial Comments This 28-year-old young lady at 28 weeks gestational age presents to the emergency room with flulike symptoms over the past 2 days including cough, congestion, runny nose, fatigue, wheezing, shortness of air, central chest discomfort with inspiration, backache, and myalgias. She saw Dr. Brito who is providing her obstetrical care yesterday and was prescribed Flonase and Zyrtec. Symptoms have progressed since then and she now believes she is ill with infectious illness. 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 She has been afebrile. She is mildly tachycardic. She has had to use an inhaler in the past for chronic bronchitis. She is a tobacco smoker. Allergies and Home Medications Allergies Coded Allergies: Penicillins (Verified Allergy, Severe, 02/16/18) hospitalized as child for allergic reaction. Details unk. Amox causes rash clavulanic acid (Verified Allergy, Mild, HIVES, 01/02/20) amoxicillin (Verified Adverse Reaction, Mild, RASH, 01/02/20) Patient Home Medication List Home Medication List Reviewed: Yes Cyclobenzaprine HCl (Cyclobenzaprine HCl) 10 Mg Tablet, 10 MG PO Q8H PRN for SPASMS Prescribed by: BRETT CAROLINA on 01/05/22 09 Cyclobenzaprine HCl (Cyclobenzaprine HCl) 10 Mg Tablet, 10 MG PO Q8H PRN for SPASMS Prescribed by: PIETER BROWNLEE on 01/27/22 190 Cyclobenzaprine HCl (Cyclobenzaprine HCl) 10 Mg Tablet, 10 MG PO Q8H PRN for SPASMS Prescribed by: ROSE HENDRICKSON on 02/10/23 0014 Docusate Sodium (Dok) 100 Mg Capsule, 100 MG PO BID PRN for CONSTIPATION-1ST LINE Prescribed by: GABY VASQUEZ on 01/10/20 0737 Hydrocodone/Acetaminophen (Hydrocodone-Acetamin 5-325 mg) 1 Each Tablet, 1-2 TAB PO Q6HR PRN for PAIN-MODERATE (5-7) Prescribed by: GABY VASQUEZ on 01/10/20 07 Ibuprofen (Ibu) 600 Mg Tablet, 600 MG PO Q6HR Prescribed by: GABY VASQUEZ on 01/10/20 07 Ketorolac Tromethamine (Ketorolac Tromethamine) 10 Mg Tablet, 10 MG PO Q8H Prescribed by: BRETT CAROLINA on 01/05/22 0928 Lidocaine (Lidocaine 5% Patch) 5 % Adh..patch, 1 EACH TP Q12H PRN for Neuropathic pain Prescribed by: BRETT CAROLINA on 01/05/22 0928 Ondansetron (Ondansetron Odt) 4 Mg Tab.rapdis, 4 MG PO Q6H PRN for NAUSEA/VOMITI NG Prescribed by: ROSE HENDRICKSON on 02/10/23 0022 Prednisone (Prednisone) 20 Mg Tab, 40 MG PO DAILY Prescribed by: ROSE HENDRICKSON on 01/30/23 0153 Promethazine HCl (Promethazine Tablet) 25 Mg Tablet, 25 MG PO Q6H PRN for NAUSEA/VOMITING Prescribed by: AISSATOU SOLANO on 12/07/22 1454 Sulfamethoxazole/Trimethoprim (Bactrim Ds Tablet) 1 Each Tablet, 1 EACH PO BID Prescribed by: SAUL GARCIA on 05/02/21 0026 Review of Systems Review of Systems Constitutional: no symptoms reported EENTM: see HPI Respiratory: see HPI Cardiovascular: see HPI Gastrointestinal: no symptoms reported Genitourinary: no symptoms reported : Yes Musculoskeletal: see HPI Skin: no symptoms reported Psychiatric/Neurological: No Symptoms Reported Hematologic/Lymphatic: No Symptoms Reported Immunological/Allergic: no symptoms reported Past Dnoxzgk-Cjysni-Afubaq Hx Patient Social History Tobacco Use?: Yes Tobacco type used: Cigarettes Smoking Status: Current Everyday Smoker Substance use?: No Alcohol Use?: No Immunizations Up To Date Tetanus Booster (TDap): Unknown PED Vaccines UTD: Yes First/Initial COVID19 Vaccinat: unk Second COVID19 Vaccination James: denies Third COVID19 Vaccination Date: denies Seasonal Allergies Seasonal Allergies: No Past Medical History Surgery/Hospitalization HX: Sciatic nerve pain; x3; Appendectomy; T&A; Rotator Cuff injury Surgeries: Yes Adenoidectomy, Appendectomy, Section, Tonsillectomy Respiratory: No Cardiac: No Neurological: No Female Reproductive Disorders: Denies Sexually Transmitted Disease: No HIV/AIDS: No Genitourinary: Yes Kidney Stones Gastrointestinal: Yes Gastroesophageal Reflux Musculoskeletal: No Endocrine: No HEENT: No Loss of Vision: Denies Hearing Impairment: Denies Cancer: No Psychosocial: No Integumentary: No Blood Disorders: Yes (Anemia) Adverse Reaction/Blood Tranf: No Family Medical History Asthma G8 SISTER Diabetes mellitus 19 FATHER Seizure disorder 19 FATHER G8 SISTER Thyroid disease 19 MOTHER G8 SISTER Physical Exam Vital Signs Vital Signs - First Documented 04/05/23 13:39 Temp 36.8 Pulse 104 Resp 18 B/P (MAP) 130/85 (100) Pulse Ox 100 O2 Delivery Room Air Capillary Refill : Height, Weight, BMI Height: 5'0" Weight: 195lbs. 0oz. 88.686199pw; 38.00 BMI Method:Stated General Appearance: WD/WN, Mild Distress (From coughing) HEENT: PERRL/EOMI, TMs Normal, Normal ENT Inspection, Pharynx Normal Neck: Normal Inspection Respiratory: No Accessory Muscle Use, No Respiratory Distress, Wheezing, Other (Coarse cough) Cardiovascular: No Edema, No Murmur, Tachycardia (Regular) Extremity: Normal Inspection Neurologic/Psychiatric: Alert, Oriented x3, No Motor/Sensory Deficits, Normal Mood/Affect Skin: Normal Color, Warm/Dry Progress/Results/Core Measures Suspected Sepsis SIRS Temperature: Pulse: 104 Respiratory Rate: 18 Blood Pressure 130 /85 Mean: 100 Results/Orders Lab Results Laboratory Tests Test 04/05/23 14:02 Range/Units Influenza Type A (RT-PCR) Not Detected Not Detecte Influenza Type B (RT-PCR) Not Detected Not Detecte SARS-CoV-2 RNA (RT-PCR) Not Detected Not Detecte My Orders Orders - AISSATOU KELSEY MD Covid 19 Inhouse Test (04/05/23 13:40) Influenza A And B By Pcr (04/05/23 13:40) Albuterol Hfa Inhaler (Albuterol Hfa Inh (04/05/23 18:00) Albuterol Hfa Inhaler (Albuterol Hfa Inh (04/05/23 14:19) Medications Given in ED Current Medications Medications Dose Ordered Sig/Eleni Route Start Time Stop Time Status Last Admin Dose Admin Albuterol Sulfate 4 PUFFS RTQ4HR ONCE IH 04/05/23 18:00 04/05/23 18:01 04/05/23 14:21 8.5 GM Vital Signs/I&O 04/05/23 13:39 Temp 36.8 Pulse 104 Resp 18 B/P (MAP) 130/85 (100) Pulse Ox 100 O2 Delivery Room Air Capillary Refill : Blood Pressure Mean: 100 Progress Note #1: Time: 14:24 Progress Note Chief complaint and triage notes reviewed at 1340 and influenza and COVID swabs ordered accordingly. Patient was interviewed and examined at 1408. She has coarse cough and wheezing with deep inspiration and cough. Albuterol inhaler has been ordered. Swab results are still pending. Progress Note #2: Time: 14:44 Progress Note Viral swabs were negative. Albuterol inhaler was somewhat helpful. See discharge instructions for further discussion. Departure Impression Primary Impression: Acute bronchitis Qualified Codes: J20.9 - Acute bronchitis, unspecified Additional Impression: Qualified Codes: Z3A.28 - 28 weeks gestation of Disposition: 01 HOME, SELF-CARE Condition: Improved Departure-Patient Inst. Decision time for Depature: 14:42 Referrals: GABRIEL LARIOS MD (PCP) Primary Care Physician Patient Instructions: Acute bronchitis Add. Discharge Instructions: Drink plenty of clear liquids to stay well-hydrated. For aches and pains you may take Tylenol (acetaminophen) up to 1000 mg every 6 hours as needed. For cough and congestion you may take products containing dextromethorphan (DM) and guaifenesin purchased [id number]. You may use your inhaler up to 4 puffs in a 4-hour period of time as needed for wheezing and shortness of breath. Follow-up with Dr. Brito if needed for further treatment or evaluation. Return to the ER if you have notably worsening symptoms despite following these instructions. This illness is likely caused by a virus and will need to run its course. All discharge instructions reviewed with patient and/or family. Voiced understanding. Copy Copies To 1: BRITOJOY Smalls MD, JOSHUA T MD Apr 05, 2023 14:25
[2023-04-05 14:46] VITALS: BP 130/85
== END 2023-04-05 14:47 | disposition home or self-care (01) ==
LOC: EDUNIT# 13:29 → ER FS 13:31
DX: O99.513 Diseases of the respiratory system complicating pregnancy, third trimester (principal); J20.9 Acute bronchitis, unspecified; F17.210 Nicotine dependence, cigarettes, uncomplicated; Z3A.28 28 weeks gestation of pregnancy; Z20.822 Contact with and (suspected) exposure to COVID-19
CPT/HCPCS: 87636; 94640

== ENCOUNTER 2023-04-09 00:04 | Outpatient (CLI) | payer MEDICAID ==
[~2023-04-09] VITALS: Ht 152.4 cm; Wt 88.9 kg
[2023-04-09 00:13] VITALS: BP 130/86
[2023-04-09 00:43] VITALS: BP 118/68
[2023-04-09 00:44] LABS: CLARITY,URINE CLEAR; COLOR,URINE YELLOW
[2023-04-09 00:45] LABS: BACTERIA,URINE NEGATIVE /HPF; BILIRUBIN,URINE NEGATIVE (NEGATIVE); GLUCOSE, URINE (UA) NEGATIVE (NEGATIVE); KETONES,URINE NEGATIVE (NEGATIVE); LEUKOCYTE ESTERASE ,URINE NEGATIVE (NEGATIVE); NITRITE,URINE NEGATIVE (NEGATIVE); PROTEIN,URINE NEGATIVE (NEGATIVE); WBC,URINE 0-2 /HPF
[2023-04-09 01:13] VITALS: BP 105/59
[2023-04-09] MEDS ORDERED: DIPH25CA79 PO (01:30)
[2023-04-09] MEDS ORDERED: PREN-102 PO (01:30)
[2023-04-09] MEDS ORDERED: ACET-2267 PO (01:30)
[2023-04-09 01:34] VITALS: BP 116/66
[2023-04-09 01:52] VITALS: BP 116/66
--- NOTE | 2023-04-10 08:02 | Physician Query-Final Dx ---
TATI,04/10/23 0802: Clinic Account Progress/Dx Physician Query: Please give diagnosis Please include # weeks gestation Date of Service Apr 09, 2023 at 00:04 DENISE WEEKS DO 04/10/23 1252: Clinic Account Progress/Dx DIAGNOSIS: Diagnosis 28 wk GA abdominal pain TATI,JulApr 10, 2023 08:02 DENISE WEEKS DO Apr 10, 2023 12:52
== END 2023-04-09 01:52 | disposition home or self-care (01) ==
LOC: WSo 00:04 → LDRP 00:05 → WSo 01:52
PROVIDERS: ATTEND Family Medicine
DX: O99.891 Other specified diseases and conditions complicating pregnancy (principal); R10.9 Unspecified abdominal pain; Z3A.28 28 weeks gestation of pregnancy
CPT/HCPCS: 81000; G0463; 99213

== ENCOUNTER 2023-05-28 20:53 | Outpatient (CLI) | payer SELFPAY ==
[~2023-05-28] VITALS: Ht 152.4 cm; Wt 90.6 kg
[~2023-05-28 20:53] MED LIST changes: +ACET-2267 PO; +DIPH25CA79 PO; +PREN-102 PO
[2023-05-28 21:25] VITALS: BP 134/85
[2023-05-28] MEDS ORDERED: LACTATED RINGERS 1,000 ML 1,000 ML IV ONE (21:28)
[2023-05-28] MEDS ORDERED: LACTATED RINGERS 1,000 ML 1,000 ML IV SCH (21:30)
[2023-05-28 21:55] VITALS: BP 117/65
[2023-05-28 21:56] LABS: CLARITY,URINE CLEAR; COLOR,URINE YELLOW
[2023-05-28 21:57] LABS: BACTERIA,URINE TRACE /HPF; BILIRUBIN,URINE NEGATIVE (NEGATIVE); GLUCOSE, URINE (UA) NEGATIVE (NEGATIVE); KETONES,URINE NEGATIVE (NEGATIVE); LEUKOCYTE ESTERASE ,URINE NEGATIVE (NEGATIVE); NITRITE,URINE NEGATIVE (NEGATIVE); PROTEIN,URINE NEGATIVE (NEGATIVE); SQUAMOUS EPITHELIAL CELL,UR RARE /HPF
[2023-05-28 21:59] LABS: URINE CREATININE FOR RATIO 23 MG/DL (30-125)
[2023-05-28 22:00] LABS: URINE PROTEIN FOR RATIO ONLY < 6 MG/DL (6-12)
[2023-05-28 22:06] LABS: BASOPHILS % (AUTO) 0 % (0-10); EOSINOPHILS # (AUTO) 0.3 10^3/uL (0.0-0.3); EOSINOPHILS % (AUTO) 2 % (0-10); HEMATOCRIT 30 % (35-52); HEMOGLOBIN 9.3 g/dL (11.5-16.0); LYMPHOCYTES # (AUTO) 1.9 10^3/uL (1.0-4.0); LYMPHOCYTES % (AUTO) 13 % (12-44); MEAN CORPUSCULAR HEMOGLOBIN 21 pg (25-34); MEAN CORPUSCULAR HGB CONC 31 g/dL (32-36); MEAN CORPUSCULAR VOLUME 67 fL (80-99); MEAN PLATELET VOLUME 9.2 fL (9.0-12.2); MONOCYTES # (AUTO) 0.7 10^3/uL (0.0-1.0); MONOCYTES % (AUTO) 5 % (0-12); NEUTROPHILS # (AUTO) 11.4 10^3/uL (1.8-7.8); NEUTROPHILS % (AUTO) 78 % (42-75); PLATELET COUNT 340 10^3/uL (130-400); WHITE BLOOD COUNT 14.6 10^3/uL (4.3-11.0)
[2023-05-28 22:12] VITALS: BP 110/72
[2023-05-28 22:12] LABS: ALBUMIN 3.1 GM/DL (3.2-4.5)
[2023-05-28 22:13] LABS: POTASSIUM 3.5 MMOL/L (3.6-5.0)
[2023-05-28 22:14] LABS: CALCIUM 8.3 MG/DL (8.5-10.1)
[2023-05-28 22:15] LABS: TOTAL PROTEIN 6.3 GM/DL (6.4-8.2)
[2023-05-28 22:17] LABS: BILIRUBIN,TOTAL 0.4 MG/DL (0.1-1.0)
[2023-05-28 22:19] LABS: CREATININE SERUM 0.57 MG/DL (0.60-1.30)
[2023-05-28 22:22] LABS: URIC ACID 4.4 MG/DL (2.6-7.2)
--- NOTE | 2023-05-28 22:25 | OB Triage Report ---
Standard Progress Note Progress Notes/Assess & Plan Date Seen by a Provider: May 28, 2023 Time Seen by a Provider: 21:48 Expected Date of Delivery: Jun 27, 2023 Gestational Age in Weeks: 35 Gestational Age in Days: 5 LMP/CHRISTIANO Comment: This 28-year-old G8, P3 presents to labor and delivery at 35 weeks 5 days with complaint of headaches nausea vomiting epigastric pain. She states that she believes she may have preeclampsia. Patient also has history of gestational diabetes but is diet controlled. Blood pressure here today was 110/76. PIH labs were performed and were within normal limits FHR 145 reactive Yaurel irregular to occasional Heart regular rate and rhythm Lungs clear to auscultation bilaterally Abdomen soft some right upper quadrant tenderness no rebound rigidity or guarding Extremities intact x4 no sinus clubbing erythema or edema DTRs +2/4 equal bilaterally 2 beats of clonus bilaterally. Progress/Assessment & Plan IUP at 35 weeks 5 days Blood pressure stable DC to home PIH and labor precautions Keep next appointment PRINCE CHUNG DO May 28, 2023 22:25
[2023-05-28 22:54] VITALS: BP 110/72
== END 2023-05-28 22:54 | disposition home or self-care (01) ==
LOC: WSo 20:53 → LDRP 20:53 → WSo 22:54
PROVIDERS: ATTEND Obstetrics & Gynecology
DX: O99.891 Other specified diseases and conditions complicating pregnancy (principal); R10.9 Unspecified abdominal pain; Z3A.35 35 weeks gestation of pregnancy
CPT/HCPCS: 80053; 81000; 82570; 84156; 84550; 85025; 96360; G0463; 36415; 99213

== ENCOUNTER 2023-06-13 05:37 | Outpatient (CLI) | payer SELFPAY ==
[~2023-06-13] VITALS: Ht 152.4 cm; Wt 92.7 kg
[2023-06-13] MEDS ORDERED: FAMO-356 PO (14:40)
[2023-06-13] MEDS ORDERED: FERR325T24 PO (14:40)
[2023-06-13] MEDS ORDERED: CETI10TA17 PO (14:40)
[2023-06-19] MEDS ORDERED: IBUP-844 PO (14:56)
[2023-06-19] MEDS ORDERED: DOCU100C37 PO (14:56)
[2023-06-19] MEDS ORDERED: ACHD5005 PO (14:56)
== END 2023-06-13 15:00 | disposition home or self-care (01) ==
LOC: PREOP 05:37
PROVIDERS: ATTEND Obstetrics & Gynecology
DX: Z01.818 Encounter for other preprocedural examination (principal)

== ENCOUNTER 2023-06-19 13:59 | Inpatient (IN) | payer OTHER ==
[2023-06-19] VITALS (8 sets, daily range): BP systolic 103–123; BP diastolic 61–72
[~2023-06-19] VITALS: Ht 152.4 cm; Wt 92.1 kg
[~2023-06-19 13:59] MED LIST changes: +CETI10TA17 PO; +FAMO-356 PO; +FERR325T24 PO
[2023-06-19] MEDS ORDERED: LACTATED RINGERS 1,000 ML 2,000 ML IV ONE (14:10)
[2023-06-19] MEDS ORDERED: CITRIC ACID/SODIUM CITRATE ORAL SOLN 30 ML ONE (14:10)
[2023-06-19] MEDS ORDERED: FAMOTIDINE INJ 20MG/2ML VIAL ONE (14:10)
[2023-06-19] MEDS ORDERED: ceFAZolin INJECTION 2,000 MG ONE (14:10)
[2023-06-19] MEDS ORDERED: NS (IVPB) 50 ML 50 ML ONE (14:10)
[2023-06-19] MEDS ORDERED: METOCLOPRAMIDE INJ 10 MG/2 ML ONE (14:10)
[2023-06-19] MEDS ORDERED: ceFAZolin INJECTION 2,000 MG in NS (IVPB) 50 ML 50 ML IV ONE (14:15)
[2023-06-19] MEDS ORDERED: fentaNYL INJECTION 100 MCG/2 ML VIAL ONE (14:33)
[2023-06-19 14:37] LABS: BASOPHILS % (AUTO) 0 % (0-10); EOSINOPHILS % (AUTO) 0 % (0-10); HEMATOCRIT 33 % (35-52); LYMPHOCYTES # (AUTO) 1.1 10^3/uL (1.0-4.0); LYMPHOCYTES % (AUTO) 8 % (12-44); MEAN CORPUSCULAR HEMOGLOBIN 20 pg (25-34); MEAN CORPUSCULAR HGB CONC 30 g/dL (32-36); MEAN CORPUSCULAR VOLUME 66 fL (80-99); MEAN PLATELET VOLUME 9.5 fL (9.0-12.2); MONOCYTES # (AUTO) 0.6 10^3/uL (0.0-1.0); MONOCYTES % (AUTO) 5 % (0-12); NEUTROPHILS # (AUTO) 11.1 10^3/uL (1.8-7.8); NEUTROPHILS % (AUTO) 86 % (42-75); PLATELET COUNT 324 10^3/uL (130-400); WHITE BLOOD COUNT 12.9 10^3/uL (4.3-11.0)
--- NOTE | 2023-06-19 14:40 | History & Physical-OB ---
BROOKLYNN DICKINSON 06/19/23 1440: OB - Chief Complaint & HPI Date/Time Date of Admission: Date of Admission: Jun 19, 2023 at 14:13 Date seen by a Provider: Jun 19, 2023 Time Seen by a Provider: 14:35 Chief Complaint/History OB-Reason for Admission/Chief: Section Hx : 8 Hx Para: 3 Expected Date of Delivery: Jun 27, 2023 Gestational Age in Weeks: 38 Gestational Age in Days: 6 Indication for : desires repeat Admission Nurse Assessment Rev: Yes Allergies and Home Medications Allergies Coded Allergies: Penicillins (Verified Allergy, Severe, 02/16/18) hospitalized as child for allergic reaction. Details unk. Amox causes rash clavulanic acid (Verified Allergy, Mild, HIVES, 01/02/20) amoxicillin (Verified Adverse Reaction, Mild, RASH, 01/02/20) Patient Home Medication List Home Medication List Reviewed: Yes Acetaminophen (Tylenol Extra Strength) 500 Mg Tablet, 1,000 MG PO Q6H PRN for PAIN, (Reported) Entered as Reported by: SAVAGE LEYVA on 04/09/23 013 Cetirizine HCl (Cetirizine HCl) 10 Mg Tablet, 10 MG PO DAILY, (Reported) Entered as Reported by: Lillian Swift on 06/13/23 144 Famotidine (Acid Flap Presser (FAMOTIDINE)) 20 Mg Tablet, 20 MG PO BID, (Reported) Entered as Reported by: Lillian Swift on 06/13/23 144 Ferrous Sulfate (Ferosul) 325 Mg (65 Mg Iron) Tablet, 325 MG PO DAILY, (Reported) Entered as Reported by: Lillian Swift on 06/13/23 1440 Ondansetron (Ondansetron Odt) 4 Mg Tab.rapdis, 4 MG PO Q6H PRN for NAUSEA/VOMITING Prescribed by: ROSE HENDRICKSON on 02/10/23 0022 Vits #93/Iron Fum/FA ( Formula Tablet) 9 Mg Iron-267 Mcg Tab let, 1 EACH PO DAILY, (Reported) Entered as Reported by: SAVAGE LEYVA on 04/09/23 013 Promethazine HCl (Promethazine Tablet) 25 Mg Tablet, 25 MG PO Q6H PRN for NAUSEA/VOMITING Prescribed by: AISSATOU SOLANO on 12/07/22 1454 OB - History Hx of Present Care: Yes Ultrasounds: Abnormal US findings (IUGR 10-20 percentile) Obstetrical Complications: None Medical Complications: None Other Concerns: Maternal tobacco use in Delivery History Adverse Rxn to Tranfusion: No Patient Past Medical History n/a Social History/Family History 2nd Hand Smoke Exposure: Yes Immunizations First/Initial COVID19 Vaccine: unk Second COVID19 Vaccination: denies Third COVID19 Vaccination Date: denies Hepatitis A: Yes Hepatitis B: Yes Tetanus Booster (TDap): Unknown OB - Admission Exam Physical Exam HEENT: NCAT Heart: Rhythm Normal Abdomen: Gravid Cervical Dilatation: 4cm Heart Rate: 140's Accelerations: Accelerations Present Decelerations: No Decelerations Short Term Variability: Present Longterm Variability: Average (6-25) Contractions on Admission: 6-10 Minutes Apart Intensity: Firm Labs Laboratory Tests Test 06/19/23 14:05 Range/Units OB - Assessment/Plan/Diagnosis Assessment Assessment: active labor, section Admission Dx 28 yo @ 38.6 Active Labor Previous Maternal tobacco use Admission Status: Inpatient Order (span 2 midnights) Reason for Inpatient Admission: Repeat at term Plan Plan: Section CHRISTINADUSTY Jon DO 06/19/23 1446: Allergies and Home Medications Allergies Coded Allergies: Penicillins (Verified Allergy, Severe, 02/16/18) hospitalized as child for allergic reaction. Details unk. Amox causes rash clavulanic acid (Verified Allergy, Mild, HIVES, 01/02/20) amoxicillin (Verified Adverse Reaction, Mild, RASH, 01/02/20) Patient Home Medication List Acetaminophen (Tylenol Extra Strength) 500 Mg Tablet, 1,000 MG PO Q6H PRN for PAIN, (Reported) Entered as Reported by: SAVAGE LEYVA on 04/09/23 0130 Cetirizine HCl (Cetirizine HCl) 10 Mg Tablet, 10 MG PO DAILY, (Reported) Entered as Reported by: Lillian Swift on 06/13/23 1440 Famotidine (Acid Flap Presser (FAMOTIDINE)) 20 Mg Tablet, 20 MG PO BID, (Reported) Entered as Reported by: Lillian Swift on 06/13/23 144 Ferrous Sulfate (Ferosul) 325 Mg (65 Mg Iron) Tablet, 325 MG PO DAILY, (Reported) Entered as Reported by: Lillian Swift on 06/13/23 1440 Ondansetron (Ondansetron Odt) 4 Mg Tab.rapdis, 4 MG PO Q6H PRN for NAUSEA/VOMITING Prescribed by: ROSE HENDRICKSON on 02/10/23 0022 Vits #93/Iron Fum/FA ( Formula Tablet) 9 Mg Iron-267 Mcg Tablet, 1 EACH PO DAILY, (Reported) Entered as Reported by: SAVAGE LEYVA on 04/09/23 0130 Promethazine HCl (Promethazine Tablet) 25 Mg Tablet, 25 MG PO Q6H PRN for NAUSEA/VOMITING Prescribed by: AISSATOU SOLANO on 12/07/22 1454 OB - Assessment/Plan/Diagnosis Plan Other Plan Verification and Attestation of Medical Student E/M Service A medical student performed and documented this service in my presence. I reviewed and verified all information documented by the medical student and made modifications to such information, when appropriate. I personally performed the physical exam and medical decision making. Dusty Argueta, Jun 19, 2023,14:46 BROOKLYNN DICKINSON Jun 19, 2023 14:40 DUSTY ARGUETA DO Jun 19, 2023 14:46
[2023-06-19] MEDS ORDERED: OXYTOCIN DRIP PRE-MIX 1,000 ML IV ONE (14:42)
--- NOTE | 2023-06-19 14:53 | Discharge Inst-Women's Service ---
Discharge Inst-Women's Serv Depart Medication/Instructions New, Converted or Re-Newed RX: Transmitted to Pharmacy Final Diagnosis POD 2 RLTCS Problems Reviewed?: Yes Consults/Follow Up Additional Follow Up: Yes Orders/Referrals Dr. Argueta in 7-10 days and in 6 weeks Activity Activity: Activity as Tolerated Driving Instructions: No Driving for 1 Week NO SMOKING: NO SMOKING Nothing Inside Vagina: No Douching, No [place], No Tampons Diet Discharge Diet: No Restrictions Symptoms to Report to : Bleeding Excessive, Pain Increased, Fever Over 101 Degrees F, Vaginal Bleeding Increase, Questions/Concerns For Any Problems or Questions: Contact Your Physician Skin/Wound Care Infection Signs and Symptoms: Increased Redness, Foul Odor of Wound, Increased Drainage, Skin Itchy or Has a Rash, Increased Swelling, Temperature Above 101 F Operative Area Clean and Dry: Keep Incision Clean/Dry Stitches/Dexter/Dermabond: Dermabond, Care of Stitches Bathing Instructions: GABY Dyer DO Jun 19, 2023 14:53
[2023-06-19] MEDS ORDERED: ACHD5005 PO (14:56)
[2023-06-19] MEDS ORDERED: DOCU100C37 PO (14:56)
[2023-06-19] MEDS ORDERED: IBUP-844 PO (14:56)
[2023-06-19] MEDS ORDERED: MEASLES, MUMPS, RUBELLA VACCINE (MMR) SC SCH (15:00)
[2023-06-19] MEDS ORDERED: NALOXONE 0.4 MG/ML 1 ML VIAL IV PRN (15:00)
[2023-06-19] MEDS ORDERED: OXYTOCIN DRIP PRE-MIX 500 ML IV SCH (15:00)
[2023-06-19] MEDS ORDERED: ONDANSETRON INJECTION 4 MG/2 ML (SDV) IVP PRN (15:00)
[2023-06-19] MEDS ORDERED: Tetanus/Diphtheria/Pertussis (Acell) ADULT Vaccine 0.5 ML IM SCH (15:00)
[2023-06-19] MEDS ORDERED: PHENYLEPHRINE 100 MCG/ML 10 ML (ANESTHESIA) SYR ONE (15:03)
[2023-06-19] MEDS ORDERED: BUPIVACAINE 0.5% 30 ML VIAL ONE (15:28)
[2023-06-19] MEDS: KETOROLAC INJ 30 MG/ML VIAL IV SCH ×2 (16:20→22:31)
[2023-06-19] MEDS: CATHETER FLUSH 10 ML SYR IV SCH (22:31)
[2023-06-19] MEDS: DOCUSATE SODIUM 100 MG CAPSULE PO SCH (22:31)
[2023-06-19] MEDS: HYDROcodone/ACETAMINOPHEN 5 MG/325 MG TABLET PO PRN (22:51)
[2023-06-20 01:00] VITALS: BP 96/60
[2023-06-20 04:03] VITALS: BP 103/63
[2023-06-20] MEDS: CATHETER FLUSH 10 ML SYR IV SCH (04:03)
[2023-06-20] MEDS: KETOROLAC INJ 30 MG/ML VIAL IV SCH ×2 (04:03→10:51)
[2023-06-20] MEDS: HYDROcodone/ACETAMINOPHEN 5 MG/325 MG TABLET PO PRN ×2 (04:09→14:02)
[2023-06-20 05:58] LABS: BASOPHILS % (AUTO) 0 % (0-10); EOSINOPHILS # (AUTO) 0.1 10^3/uL (0.0-0.3); EOSINOPHILS % (AUTO) 1 % (0-10); HEMATOCRIT 27 % (35-52); HEMOGLOBIN 8.1 g/dL (11.5-16.0); LYMPHOCYTES # (AUTO) 1.8 10^3/uL (1.0-4.0); LYMPHOCYTES % (AUTO) 14 % (12-44); MEAN CORPUSCULAR HEMOGLOBIN 20 pg (25-34); MEAN CORPUSCULAR HGB CONC 30 g/dL (32-36); MEAN CORPUSCULAR VOLUME 66 fL (80-99); MEAN PLATELET VOLUME 9.4 fL (9.0-12.2); MONOCYTES # (AUTO) 1.2 10^3/uL (0.0-1.0); MONOCYTES % (AUTO) 10 % (0-12); NEUTROPHILS # (AUTO) 9.8 10^3/uL (1.8-7.8); NEUTROPHILS % (AUTO) 75 % (42-75); PLATELET COUNT 239 10^3/uL (130-400); WHITE BLOOD COUNT 13.1 10^3/uL (4.3-11.0)
[2023-06-20] MEDS ORDERED: FLU QUADRIvalent (6 months+) 60 mcg/0.5 ml 2023-2024 (FLUARIX) IM ONE (07:00)
--- NOTE | 2023-06-20 08:07 | Postpartum Progress Note ---
ALOKBROOKLYNN Juliet 06/20/23 0807: Note Note Day # 1 Subjective: Patient is without complaints. Ambulating, voiding. Tolerating a regular diet without nausea or vomiting. Normal lochia. Pain is well controlled with oral pain medications. . Objective: Vital Signs 06/20/23 04:03 Temp 36.2 Pulse 78 Resp 18 B/P (MAP) 103/63 (76) Pulse Ox 97 O2 Delivery Room Air Laboratory Tests Test 06/19/23 14:05 06/20/23 05:20 Range/Units White Blood Count 12.9 H 13.1 H 4.3-11.0 10^3/uL Red Blood Count 5.01 4.06 3.80-5.11 10^6/uL Hemoglobin 10.0 L 8.1 L 11.5-16.0 g/dL Hematocrit 33 L 27 L 35-52 % Mean Corpuscular Volume 66 L 66 L 80-99 fL Mean Corpuscular Hemoglobin 20 L 20 L 25-34 pg Mean Corpuscular Hemoglobin Concent 30 L 30 L 32-36 g/dL Red Cell Distribution Width 17.0 H 16.4 H 10.0-14.5 % Platelet Count 324 239 130-400 10^3/uL Mean Platelet Volume 9.5 9.4 9.0-12.2 fL Immature Granulocyte % (Auto) 1 1 % Neutrophils (%) (Auto) 86 H 75 42-75 % Lymphocytes (%) (Auto) 8 L 14 12-44 % Monocytes (%) (Auto) 5 10 0-12 % Eosinophils (%) (Auto) 0 1 0-10 % Basophils (%) (Auto) 0 0 0-10 % Neutrophils # (Auto) 11.1 H 9.8 H 1.8-7.8 10^3/uL Lymphocytes # (Auto) 1.1 1.8 1.0-4.0 10^3/uL Monocytes # (Auto) 0.6 1.2 H 0.0-1.0 10^3/uL Eosinophils # (Auto) 0.0 0.1 0.0-0.3 10^3/uL Basophils # (Auto) 0.0 0.0 0.0-0.1 10^3/uL Immature Granulocyte # (Auto) 0.1 0.1 0.0-0.1 10^3/uL Physical Exam: General - Alert and oriented, no apparent distress Abdomen - Soft, appropriately tender to palpation, non-distended, fundus firm at umbilicus Extremities - no edema, negative Guillermo's bilaterally, SCDs in place Assessment: Post- day # 1, status post delivery. Recovering well, hemodynamically stable 28 yo @ 38.6 Active Labor Previous Maternal tobacco use Plan: Routine care. Encourage breast feeding. Encourage ambulation. Ferrous sulfate supplementation. Anticipate discharge tomorrow Vitals - Labs Vital Signs - I&O Vital Signs Date Time Temp Pulse Resp B/P (MAP) Pulse Ox O2 Delivery O2 Flow Rate FiO2 06/20/23 04:03 36.2 78 18 103/63 (76) 97 Room Air 06/20/23 01:00 36.4 89 18 96/60 (72) 99 Room Air 06/20/23 00:11 Room Air 06/19/23 20:15 36.6 82 18 111/66 (81) 98 Room Air 06/19/23 17:02 36.4 70 18 115/61 (79) 99 Room Air 06/19/23 16:55 Room Air 06/19/23 16:45 36.3 16 103/63 (76) 100 Room Air 06/19/23 16:35 18 116/63 (80) 100 Room Air 06/19/23 16:30 Room Air 06/19/23 16:25 16 109/63 (78) 99 Room Air 06/19/23 16:15 Room Air 06/19/23 16:15 16 105/63 (77) 100 Room Air 06/19/23 16:00 Room Air 06/19/23 16:00 36.2 16 117/70 (86) 100 Room Air 06/19/23 13:37 121 18 123/72 (89) 99 Room Air 06/19/23 13:37 36.6 121 18 99 Room Air I & O 06/20/23 07:00 Intake Total 2630 ml Output Total 70 ml Balance 2560 ml Labs Laboratory Tests 06/19/23 14:05: White Blood Count 12.9H, Red Blood Count 5.01, Hemoglobin 10.0L, Hematocrit 33L, Mean Corpuscular Volume 66L, Mean Corpuscular Hemoglobin 20L, Mean Corpuscular Hemoglobin Concent 30L, Red Cell Distribution Width 17.0H, Platelet Count 324, Mean Platelet Volume 9.5, Immature Granulocyte % (Auto) 1, Neutrophils (%) (Auto ) 86H, Lymphocytes (%) (Auto) 8L, Monocytes (%) (Auto) 5, Eosinophils (%) (Auto) 0, Basophils (%) (Auto) 0, Neutrophils # (Auto) 11.1H, Lymphocytes # (Auto) 1.1, Monocytes # (Auto) 0.6, Eosinophils # (Auto) 0.0, Basophils # (Auto) 0.0, Immature Granulocyte # (Auto) 0.1 06/20/23 05:20: White Blood Count 13.1H, Red Blood Count 4.06, Hemoglobin 8.1L, Hematocrit 27L, Mean Corpuscular Volume 66L, Mean Corpuscular Hemoglobin 20L, Mean Corpuscular Hemoglobin Concent 30L, Red Cell Distribution Width 16.4H, Platelet Count 239, Mean Platelet Volume 9.4, Immature Granulocyte % (Auto) 1, Neutrophils (%) (Auto) 75, Lymphocytes (%) (Auto) 14, Monocytes (%) (Auto) 10, Eosinophils (%) (Auto) 1, Basophils (%) (Auto) 0, Neutrophils # (Auto) 9.8H, Lymphocytes # (Auto) 1.8, Monocytes # (Auto) 1.2H, Eosinophils # (Auto) 0.1, Basophils # (Auto) 0.0, Immature Granulocyte # (Auto) 0.1 DUSTY VASQUEZ DO 06/20/23 0849: Note Note Diagnosis: Acute blood loss anemia Verification and Attestation of Medical Student E/M Service A medical student performed and documented this service in my presence. I reviewed and verified all information documented by the medical student and made modifications to such information, when appropriate. I personally performed the physical exam and medical decision making. Dusty Vasquez, Jun 20, 2023,08:46 BROOKLYNN DICKINSON Jun 20, 2023 08:07 DUSTY VASQUEZ DO Jun 20, 2023 08:49
[2023-06-20] MEDS: DOCUSATE SODIUM 100 MG CAPSULE PO SCH ×2 (10:51→20:40)
[2023-06-20 10:52] VITALS: BP 106/57
--- NOTE | 2023-06-20 11:53 | Anesthesia-Regional Post-Op ---
Regional Patient Condition Mental Status: Alert, Oriented x3 Circulation: Same as Pre-Op Headache: Absent Sensation: Full Recovery Motor Block: Absent Post Op Complications Complications None Follow Up Care/Instructions Patient Instructions None needed. Anesthesia/Patient Condition Patient is doing well, no complaints, stable vital signs, no apparent adverse anesthesia problems. No complications reported per nursing. LUZMARIA HARRISON CRNA Jun 20, 2023 11:53
[2023-06-20 14:02] VITALS: BP 117/59
[2023-06-20] MEDS: IBUPROFEN 600 MG TABLET PO SCH ×2 (17:03→23:25)
[2023-06-20 20:15] VITALS: BP 115/62
[2023-06-21 01:51] VITALS: BP 128/80
[2023-06-21] MEDS: HYDROcodone/ACETAMINOPHEN 5 MG/325 MG TABLET PO PRN ×2 (01:51→08:28)
[2023-06-21] MEDS: IBUPROFEN 600 MG TABLET PO SCH (04:51)
--- NOTE | 2023-06-21 08:16 | Postpartum Progress Note ---
Post Op Post-operative Day #2 Subjective: Patient is without complaints. Ambulating, voiding after tovar removed. Tolerating a regular diet without nausea or vomiting. Normal lochia. Pain is well controlled with oral pain medications. Passing flatus. Breast feeding. [] Objective: VSS AF Physical Exam: General - Alert and oriented, no apparent distress Breast symmetrical no erythema or edema or engorgement Abdomen - Soft, appropriately tender to palpation, non-distended, fundus firm at umbilicus Incision - clean, dry and intact; no erythema or induration, no drainage Extremities - no edema, negative Guillermo's bilaterally Assessment: [] post-operative day #2, status post LTCS. Recovering well, hemodynamically stable Plan: Routine post-operative care. Encourage breast feeding. Encourage ambulation. VTE prophylaxis: SCDs. Ferrous sulfate supplementation. Plan for discharge [] Vitals - Labs Vital Signs - I&O Vital Signs Date Time Temp Pulse Resp B/P (MAP) Pulse Ox O2 Delivery O2 Flow Rate FiO2 06/21/23 01:51 36.1 91 16 128/80 (96) 99 Room Air 06/20/23 20:15 36.4 81 18 115/62 (79) 98 Room Air 06/20/23 20:15 Room Air 06/20/23 14:02 36.2 81 18 117/59 (78) Room Air 06/20/23 10:52 36.3 72 18 106/57 (73) 99 Room Air I & O 06/21/23 06:59 Intake Total 1200 ml Balance 1200 ml PRINCE CHUNG DO Jun 21, 2023 08:16
[2023-06-21] MEDS: DOCUSATE SODIUM 100 MG CAPSULE PO SCH (08:28)
[2023-06-21 08:30] VITALS: BP 111/55
--- NOTE | 2023-06-21 09:38 | OPERATIVE REPORT ---
DATE OF SERVICE: 06/19/2023 PREOPERATIVE DIAGNOSES: 1. A 28-year-old at 38 weeks and 6 days' gestation. 2. Previous section. 3. Active labor. POSTOPERATIVE DIAGNOSES: 1. A 28-year-old at 38 weeks and 6 days' gestation. 2. Previous section. 3. Active labor. 4. Complete breech presentation. PROCEDURE: Repeat low transverse section. SURGEON: Dusty Vasquez, ANESTHESIA: Spinal. ESTIMATED BLOOD LOSS: 500 mL URINE OUTPUT: 25 mL clear at the end of the procedure. FLUIDS: 1400 mL lactated Ringer's solution. FINDINGS: A live female weighing 6 pounds 10 ounces, Apgars of 1, 5 and 9. Grossly normal appearing uterus, bilateral fallopian tubes and ovaries. SPECIMEN SENT: Placenta. INDICATIONS FOR PROCEDURE: This 28-year-old female is a patient, who sought care in my office, it was complicated by the finding of IUGR as well as maternal tobacco use in . She has had a previous section. Due to these complicating factors, the patient did present in active labor and repeat was recommended. The patient was scheduled for a repeat tomorrow. Risk of the procedure were discussed with the patient in detail. After all of her questions were answered, she was agreeable to proceed. Consent was obtained, the patient was taken to the operating room. OPERATIVE DESCRIPTION IN DETAIL: Once in the operating room, a spinal analgesia was found to be adequate, was placed in supine position with leftward tilt, prepped and draped in normal sterile fashion. A timeout was performed. Anesthesia was tested. I then make a Pfannenstiel skin incision through previous existing scar using knife and carried down to fascia using Bovie cautery. The fascial incision extended laterally using Bovie cautery. The superior aspect of fascial incision was then grasped with Blair clamps, tented up and dissected off the underlying rectus muscles. The inferior aspect of fascial incision was then grasped with Blair clamps, tented up and dissected off the underlying rectus muscles. Rectus muscles were dissected down the midline sharply, which exposed the peritoneum, which I entered bluntly and extended using blunt traction. Sergio ring retractor was placed in the peritoneal incision, which offers excellent lateral sidewall retraction. I identified lower uterine segment, found to be thinned out. I made a low transverse incision to the vesicouterine peritoneum and bluntly I dissected this off the lower uterine segment, creating a bladder flap. I then proceeded my myotomy until membranes are visualized, at which point I extended the uterine incision laterally and superiorly using bandage scissors. Amniotomy was performed. In the process of doing this, lightly meconium-stained fluid was noted at the time of rupture. The infant was found in a complete breech presentation. The feet and buttocks were delivered down through the incision with gentle fundal pressure. The was delivered up to the upper torso where the arms are delivered by sweeping them across the chest and the was in a downward facing position and then by elevating the body and flexing the neck through the incision, the 's head was delivered. The nares and oropharynx bulb suction. The infant was brought to the operative field where cords were doubly clamped and cut and infant was handed off to waiting nurses in attendance. Cord blood was collected. Three-vessel cord, intact placenta was delivered spontaneously thereafter. IV Pitocin was initiated to facilitate uterine contraction. Uterine fundus confirmed by manual massage. The uterus was then exteriorized and cleared of all endometrial clots and debris. I then proceeded with closing the uterine incision using 0 Vicryl suture in a running locked fashion. Second layer of imbricating 0 Monocryl was placed. Excellent hemostasis was noted after doing this. I then placed the uterus back in the pelvis and copiously irrigated the pelvis using normal saline. Once again, there was no active bleeding noted from any of my dissection planes. I placed Interceed antiadhesive over my low transverse incision. I removed the Sergio ring retractor and then proceeded with closing the peritoneum and rectus muscles in one layer using 3-0 Vicryl suture in a running fashion. The fascia was reapproximated using 0 Vicryl suture in a running fashion. The subcutaneous tissue was reapproximated using 3-0 plain in interrupted subcutaneous stitch and skin reapproximated using 4-0 Monocryl in a running subcuticular. Dermabond was applied to incision, sterile dressing with adhesive white tape. The patient tolerated the procedure well and was taken to recovery in stable condition. Lap and sponge counts were correct at the end of the procedure. Instrument count as well. Two grams of Ancef were given preoperatively for infection prophylaxis. Job ID: [id number] DocumentID: [id number] Dictated Date: 06/19/2023 16:00:42 Interior Design Professional Date: 06/20/2023 01:36:00 Dictated By: DUSTY VASQUEZ DO <Dictated by DUSTY VASQUEZ DO> <Electronically signed by DUSTY VASQUEZ DO> 06/20/23 [id number] MTDD
[2023-06-21] MEDS ORDERED: FLU QUADRIvalent (6 months+) 60 mcg/0.5 ml 2023-2024 (FLUARIX) IM ONE (10:09)
== END 2023-06-21 11:02 | disposition home or self-care (01) | DRG 787 ==
LOC: WSo 13:59 → LDRP 13:59 → WSo 14:12 → LDRP 14:13
PROVIDERS: ADMIT Obstetrics & Gynecology; ATTEND Obstetrics & Gynecology
PROC: 10D00Z1 Extraction of Products of Conception, Low, Open Approach (ICD-10-PCS; principal; 2023-06-19 14:49)
DX: O34.211 Maternal care for low transverse scar from previous cesarean delivery (principal); D62 Acute posthemorrhagic anemia; Z3A.38 38 weeks gestation of pregnancy; Z37.0 Single live birth; O99.334 Smoking (tobacco) complicating childbirth; O90.81 Anemia of the puerperium; F17.200 Nicotine dependence, unspecified, uncomplicated; O32.1XX0 Maternal care for breech presentation, not applicable or unspecified
CPT/HCPCS: 36415; 85025; 86850; 86900; 86901; 90686; 94664; 99212